=== PATIENT | male | born 1975 | race Caucasian/White ===

== ENCOUNTER 2019-11-20 01:19 | Day surgery (SDC) | payer OTHER, SELFPAY ==
[2019-11-19 09:28] VITALS: BMI 29.9
[2019-11-20 06:36] VITALS: BP 137/90; PULSE 88; RESP 18; TEMP 36.7; O2SAT 100; BMI 29.2
[2019-11-20] MEDS: LACTATED RINGERS 1,000 ML 150 ML IV CONT (06:54)
--- NOTE | 2019-11-20 07:08 | WPDANESEPPF ---
Anes - Initial Pre Proc Eval Procedure: Operation Date: 11/20/19 07:30 Proposed Procedures p Esophagogastroduodenoscopy - Tom Lock MD Date/Time: 11/20/19 07:08 Surgeon: Tom Lock MD Pre Op Diagnosis: dysphagia Patient Data Age: 44 Gender: M Height: 6 ft Weight: 98 kg Last Vital Signs Temp 36.7 C 11/20/19 06:36 Pulse 88 11/20/19 06:36 Resp 18 11/20/19 06:36 BP 137/90 11/20/19 06:36 Pulse Ox 100 11/20/19 06:36 Allergies Allergy/AdvReac Type Severity Reaction Status Date / Time No Known Allergies Allergy Unknown Verified 11/20/19 06:26 Home Medications Medication Instructions Recorded Confirmed Type sildenafil 100 mg tablet 100 mg PO DAILY PRN #18 tablet 08/21/19 11/19/19 Rx pantoprazole 40 mg PO DAILY 11/19/19 11/20/19 History Patient hx anesthesia problems: none Family hx anesthesia problems: none [facility] Social History Social History Smoking status: Current every day smoker Second hand tobacco smoke exposure: No Smoking end date: 08/07/14 Alcohol intake: current Anes - Eval Final PreProcedure Day of Procedure 11/20/19 07:08 Patient weight: overweight Heart: regular rate and rhythm Lungs: decreased breath sounds Airway: Mallampati scale class II Neurological: alert and oriented Last oral intake: >/= 8 hours ASA classification: III Emergent: no Anesthetic plan: proceed Anesthesia type and monitoring: general GIVS and standard monitoring Informed Consent: The patient's anesthetic plan and its attendant risks and benefits were discussed with the patient/family/POA. Questions were solicited and answers provided to the satisfaction of the patient/family/POA.
--- NOTE | 2019-11-20 07:15 | PM.HPGS ---
History of Present Illness History of Present Illness Consent: Risks, benefits, and alternatives have been discussed and questions answered. Patient agrees to proceed with procedure. Chief complaint: dysphagia Narrative: Jese Munson is a 44 year old maleWith known gastroesophageal reflux maintain on pantoprazole. He suddenly had a sensation of a food impaction on Monday afternoon. For several hours he could not drink water without it coming back up. He has had reflux esophagitis and an esophageal stricture was dilated in 2017. He has not been having difficulty swallowing lately until now. [facility] Social History Social History Smoking status: Current every day smoker Second hand tobacco smoke exposure: No Smoking end date: 08/07/14 Alcohol intake: current Meds Home Medications and Allergies Home Medications Medication Instructions Recorded Confirmed Type sildenafil 100 mg tablet 100 mg PO DAILY PRN #18 tablet 08/21/19 11/19/19 Rx pantoprazole 40 mg PO DAILY 11/19/19 11/20/19 History Allergies Allergy/AdvReac Type Severity Reaction Status Date / Time No Known Allergies Allergy Unknown Verified 11/20/19 06:26 Vital Signs Vital Signs - 24 hr 11/20/19 06:36 Temperature 36.7 C Pulse Rate 88 Respiratory Rate 18 Blood Pressure 137/90 Pulse Oximetry 100 Exam Const: General: alert Orientation/consciousness: patient oriented x3 Resp: Auscultation: clear to auscultation bilaterally Cardio: Rhythm: regular rhythm GI: GI Palp: Yes Soft to palpation and No Tenderness to palpation present (GI) Neuro: General: patient oriented x3 Assessment and Plan Assessment and plan (1) Dysphagia: Code(s): R13.10 - Dysphagia, unspecified Status: Acute Assessment and Plan: EGD with possible biopsy or dilatation or cautery.
[2019-11-20 07:36] VITALS: BP 117/81; PULSE 100; RESP 21; O2SAT 98
[2019-11-20 07:40] VITALS: BP 128/81; PULSE 91; RESP 17; O2SAT 97
[2019-11-20 07:51] VITALS: BP 110/92; PULSE 94; RESP 24; O2SAT 98
[2019-11-20 08:02] VITALS: BP 127/87; PULSE 83; RESP 16; O2SAT 98
== END 2019-11-20 08:10 | disposition home or self-care (01) ==
PROVIDERS: PCP Internal Medicine; Visit Provider Internal Medicine Gastroenterology
PROC: 0DJ08ZZ Inspection of Upper Intestinal Tract, Via Natural or Artificial Opening Endoscopic (ICD-10-PCS; CPT 43235; principal; 2019-11-20 07:30)
DX: K22.2 Esophageal obstruction (principal); K44.9 Diaphragmatic hernia without obstruction or gangrene; K21.0 Gastro-esophageal reflux disease with esophagitis; F17.210 Nicotine dependence, cigarettes, uncomplicated
CPT/HCPCS: 43249; 43239; 88305; C1726; J2704; J7120

== ENCOUNTER 2020-07-13 07:34 | Outpatient (CLI) | payer OTHER, SELFPAY ==
--- NOTE | ~2020-07-13 | US_ITS ---
EXAMINATION: US abdomen limited DATE: 07/13/2020 08:10 INDICATION: Abnormal liver function tests. TECHNIQUE: Multiple grayscale and Doppler ultrasound images of the abdomen were obtained. COMPARISON: CT abdomen and pelvis 10/12/2015 FINDINGS: The visualized portions of the head and body of the pancreas are normal. There is diffuse h epatic steatosis. No liver surface nodularity. There is normal flow in main portal vein. The gallblad leobardo is normal in size. No gallstones or gallbladder wall thickening. There is no sonographic Kessler s ign. The common duct is normal and measures 4 mm. Right kidney is normal. IMPRESSION: 1. Diffuse hepatic steatosis. Reviewed, dictated and finalized at location B. ICE ORDER TAKER
== END 2020-07-13 07:35 | disposition home or self-care (01) ==
PROVIDERS: PCP Internal Medicine; Visit Provider Clinical Nurse Specialist
DX: K76.0 Fatty (change of) liver, not elsewhere classified (principal)
CPT/HCPCS: 76705

== ENCOUNTER 2021-11-02 10:03 | Outpatient (CLI) | payer OTHER, SELFPAY ==
[2021-11-02 10:40] LABS: INR 1.1
[2021-11-02 10:47] LABS: Erythrocyte Sedimentation Rate 26 mm/hr (0-20)
[2021-11-02 11:15] LABS: Hepatitis B Surface Antigen Negative (Negative)
[2021-11-02 11:33] LABS: Hepatitis B Surface Anti Res Negative; Hepatitis C Virus Antibody Negative (Negative)
[2021-11-06 14:39] LABS: GGT 757 U/L (3-95)
[2021-11-08 23:33] LABS: ALT 77 U/L (9-46); Alpha-2-Macroglobulin 171 mg/dL (106-279); Apolipoprotein A1 188 mg/dL (94-176); Fibrosis Score 0.49; Fibrosis Stage F2; GGT 765 U/L (3-95); Haptoglobin 91 mg/dL (43-212); Necroinflammat Act Grade A2; Total Bilirubin 0.9 mg/dL (0.2-1.2)
== END 2021-11-02 10:04 | disposition home or self-care (01) ==
LOC: ANHLAB 10:05
PROVIDERS: PCP Internal Medicine; Visit Provider Nurse Practitioner Family
DX: R74.8 Abnormal levels of other serum enzymes (principal); E83.119 Hemochromatosis, unspecified; F10.20 Alcohol dependence, uncomplicated
CPT/HCPCS: 36415; 81596; 82977; 85610; 85652; 86706; 86803; 87340

== ENCOUNTER 2021-11-23 08:03 | Outpatient (CLI) | payer OTHER, SELFPAY ==
--- NOTE | ~2021-11-23 | US_ITS ---
EXAMINATION: US abdomen limited EXAM DATE: 11/23/2021 08:33 INDICATION: R74.8 - Abnormal levels of other serum enzymes. TECHNIQUE: Multiple grayscale and Doppler images of the abdomen right upper quadrant were obtained (b y a technologist who performed the scan) and subsequently reviewed. Comparison is made to prior exami nation from 07/13/2020. FINDINGS: The pancreatic head and body are normal in appearance. The pancreatic tail is not visualized. There is echogenic liver parenchyma, hepatic steatosis. There are no focal liver lesions identified. Th ere is no evidence of intrahepatic biliary duct dilation. Portal venous flow was seen in the hepatop edal, normal direction and has normal Doppler waveform. No right-sided hydronephrosis. Common bile duct measures 5 mm, which is normal. The gallbladder wall is normal in thickness, with ex pected amount of distention. No sonographic evidence of pericholecystic fluid. There is no cholelit hiases. Technologist performing exam reports patient did not demonstrate sonographic Kessler's sign. Please note that this sign is less reliable in patients who have received pain medication. IMPRESSION: Hepatic steatosis. Reviewed, dictated and finalized at location A. IMPRESSION: Hepatic steatosis.
== END 2021-11-23 08:04 | disposition home or self-care (01) ==
LOC: ANHIMG 08:09
PROVIDERS: PCP Internal Medicine; Visit Provider Nurse Practitioner Family
DX: E83.119 Hemochromatosis, unspecified (principal); F10.20 Alcohol dependence, uncomplicated; K76.0 Fatty (change of) liver, not elsewhere classified
CPT/HCPCS: 76705

== ENCOUNTER 2021-11-26 01:11 | Day surgery (SDC) | payer OTHER, SELFPAY ==
[2021-11-16 15:20] VITALS: BMI 30.5
[2021-11-26 09:49] VITALS: BP 132/85; PULSE 89; RESP 20; TEMP 37.1; O2SAT 99; BMI 29.9
[2021-11-26] MEDS: LACTATED RINGERS 1,000 ML 150 ML IV CONT (09:52)
--- NOTE | 2021-11-26 09:59 | WPDGICN ---
Assessment and Plan Assessment and plan (1) Dysphagia: Code(s): R13.10 - Dysphagia, unspecified Status: Acute Assessment and Plan: EGD with possible biopsy or dilatation or cautery. (2) Colon cancer screening: Code(s): Z12.11 - Encounter for screening for malignant neoplasm of colon Status: Acute Assessment and Plan: Colonoscopy with possible biopsy or polypectomy or cautery or injection of substances. GI Consult Note Consult date/time: 11/26/21 09:59 HPI: Jese Munson is a 46 year old male Referred for endoscopy because of dysphagia. He is also due for colon cancer screening. He is having dysphagia for solid food. In fact 5 years ago he was hospitalized with acute impaction. That was removed and he was also found have severe erosive esophagitis. A follow-up exam few months later revealed virtually complete healing of the ulcerations and biopsies were negative for Kimble's mucosa at that time. His last esophageal dilatation was just over 2 years ago. Review of Systems Review of Systems: All systems reviewed & are unremarkable except as noted in HPI and below PMFSH Past Medical History Medical History Anxiety Fatty liver GERD (gastroesophageal reflux disease) Hemochromatosis Lump in armpit Skull fracture Surgical History Surgical History H/O foot surgery @ age 13 Family History Family History Father Swallowing disorder Malignant neoplasm of prostate Social History Social History Smoking status: Former smoker Tobacco type: cigarettes and e-cigarettes/vaping Second hand tobacco smoke exposure: No Smoking end date: 08/07/14 Alcohol intake: current Alcohol use details: 1 pint vodka per day Living arrangements: with family Meds Home Medications and Allergies Home Medications Medication Instructions Recorded Confirmed Type losartan 50 mg tablet 50 mg PO DAILY #30 tablet 03/22/21 11/26/21 Rx pantoprazole 40 mg tablet,delayed See Rx Instructions .ROUTE 11/01/21 11/26/21 Rx release .COMPLEX #90 tablet Allergies Allergy/AdvReac Type Severity Reaction Status Date / Time No Known Allergies Allergy Unknown Verified 11/26/21 09:47 Vital Signs Vital Signs - 24 hr 11/26/21 09:49 Temperature 37.1 C Pulse Rate 89 Respiratory Rate 20 Blood Pressure 132/85 Pulse Oximetry 99 Exam Const: General: alert Orientation/consciousness: patient oriented x3 Resp: Auscultation: clear to auscultation bilaterally Cardio: Rhythm: regular rhythm GI: GI Palp: Yes Soft to palpation and No Tenderness to palpation present (GI) Neuro: General: patient oriented x3
--- NOTE | 2021-11-26 10:24 | P.PNAN_ITS ---
Anes - Initial Pre Proc Eval Procedure: Operation Date: 11/26/21 10:45 Proposed Procedures p Esophagogastroduodenoscopy & Screening Colonoscopy - Tom Lock MD Date/Time: 11/26/21 10:24 Surgeon: Tom Lock MD Pre Op Diagnosis: dysphagia, neoplasm screening Patient Data Age: 46 Gender: M Height: 1.83 m Weight: 100.3 kg Last Vital Signs Temp 98.7 F 11/26/21 09:49 Pulse 89 11/26/21 09:49 Resp 20 11/26/21 09:49 BP 132/85 11/26/21 09:49 Pulse Ox 99 11/26/21 09:49 Allergies Allergy/AdvReac Type Severity Reaction Status Date / Time No Known Allergies Allergy Unknown Verified 11/26/21 09:47 Home Medications Medication Instructions Recorded Confirmed Type losartan 50 mg tablet 50 mg PO DAILY #30 tablet 03/22/21 11/26/21 Rx pantoprazole 40 mg tablet,delayed See Rx Instructions .ROUTE 11/01/21 11/26/21 Rx release .COMPLEX #90 tablet Patient hx anesthesia problems: none Family hx anesthesia problems: none Results Review: All pre-operative results and documents have been reviewed as part of the pre-operative evaluation. [facility] Past Medical History Medical History Anxiety Fatty liver GERD (gastroesophageal reflux disease) Hemochromatosis Lump in armpit Skull fracture Surgical History Surgical History H/O foot surgery @ age 13 Family History Family History Father Swallowing disorder Malignant neoplasm of prostate Social History Social History Smoking status: Former smoker Tobacco type: cigarettes and e-cigarettes/vaping Second hand tobacco smoke exposure: No Smoking end date: 08/07/14 Alcohol intake: current Alcohol use details: 1 pint vodka per day Living arrangements: with family Anes - Eval Final PreProcedure Day of Procedure 11/26/21 10:24 Patient weight: obese Heart: regular rate and rhythm Lungs: clear to auscultation Airway: Mallampati scale class III Neurological: alert and oriented Last oral intake: >/= 8 hours ASA classification: III Emergent: no Anesthetic plan: proceed Anesthesia type and monitoring: general GIVS and standard monitoring Results Review: All pre-operative results and documents have been reviewed as part of the pre-operative evaluation. Informed Consent: The patient's anesthetic plan and its attendant risks and benefits were discussed with the patient/family/POA. Questions were solicited and answers provided to the satisfaction of the patient/family/POA.
--- NOTE | 2021-11-26 10:45 | SUR.OPER ---
EGD ENDED 1038, COLONOSCOPY STARTED 1044
[2021-11-26 11:03] VITALS: BP 119/83; PULSE 92; RESP 17; O2SAT 97
[2021-11-26 11:13] VITALS: BP 119/82; PULSE 85; RESP 17; O2SAT 98
[2021-11-26 11:23] VITALS: BP 131/91; PULSE 82; RESP 25; O2SAT 98
== END 2021-11-26 11:27 | disposition home or self-care (01) ==
PROVIDERS: PCP Internal Medicine; Visit Provider Internal Medicine Gastroenterology
PROC: 0DJ08ZZ Inspection of Upper Intestinal Tract, Via Natural or Artificial Opening Endoscopic (ICD-10-PCS; CPT 43235; principal; 2021-11-26 10:45)
DX: Z12.11 Encounter for screening for malignant neoplasm of colon (principal); D12.2 Benign neoplasm of ascending colon; K62.1 Rectal polyp; K21.00 Gastro-esophageal reflux disease with esophagitis, without bleeding; K22.2 Esophageal obstruction; J32.0 Chronic maxillary sinusitis; K63.5 Polyp of colon; R13.19 Other dysphagia; F41.9 Anxiety disorder, unspecified; K76.0 Fatty (change of) liver, not elsewhere classified; K21.9 Gastro-esophageal reflux disease without esophagitis; E83.119 Hemochromatosis, unspecified; Z87.891 Personal history of nicotine dependence; E66.9 Obesity, unspecified; Z68.30 Body mass index [BMI] 30.0-30.9, adult
CPT/HCPCS: 45380; 45385; 43239; 43249; 88305; C1726; J2704; J7120

== ENCOUNTER 2022-05-23 08:57 | Outpatient (CLI) | payer OTHER, SELFPAY ==
[2022-05-23 09:48] LABS: Hemoglobin 13.2 g/dL (14.0-18.0); Mean Corpuscular HGB Conc 33.8 g/dl (32-36); Mean Corpuscular Hemoglobin 36.3 pg (26-34); Mean Corpuscular Volume 107.1 fl (80-100); Mean Platelet Volume 11.5 fl (7.4-10.4); Platelet Count Result 311 k/mm3 (150-375); Red Blood Count 3.64 M/mm3 (4.6-6.20); Red Cell Distribution Width 11.5 % (11.5-14.5)
[2022-05-23 10:00] LABS: Alanine Aminotransferase 198 U/L (6-50); Alkaline Phosphatase 172 U/L (38-126); Anion Gap 15 mmol/L (8-16); Aspartate Amino Transferase 213 U/L (17-59); Bilirubin,Total 1.4 mg/dL (0.2-1.3); Blood Urea Nitrogen 20 mg/dL (9-20); Calcium 10.2 mg/dL (8.4-10.2); Carbon Dioxide 22 mmol/L (22-30); Chloride 102 mmol/L (98-107); Estimated Glomerular Filt Rate 54; Glucose 109 mg/dL (65-110); Potassium 5.1 mmol/L (3.4-5.0); Sodium 139 mmol/L (137-145)
[2022-05-23 10:03] LABS: Magnesium 1.6 mg/dL (1.6-2.3); Phosphorus 4.6 mg/dL (2.5-4.5)
[2022-05-25 11:02] LABS: Actin Antibody (IgG) <20 U (<20)
[2022-05-25 11:36] LABS: LKM 1 Antibody <=20.0 U (<=20.0)
[2022-05-25 21:51] LABS: Ceruloplasmin 34 mg/dL (18-36)
[2022-05-27 08:42] LABS: Mitochondrial (M2) Ab (IgG) <=20.0 U (<=20.0)
[2022-05-27 15:30] LABS: Alpha Fetoprotein Tumor Marker 2.7 ng/mL (<6.1)
== END 2022-05-23 08:58 | disposition home or self-care (01) ==
PROVIDERS: PCP Internal Medicine; Referring Provider Family Medicine; Visit Provider Nurse Practitioner Family
DX: K76.0 Fatty (change of) liver, not elsewhere classified (principal); R74.8 Abnormal levels of other serum enzymes; E83.119 Hemochromatosis, unspecified; E83.42 Hypomagnesemia; E83.39 Other disorders of phosphorus metabolism
CPT/HCPCS: 36415; 80053; 82104; 82105; 82390; 83516; 83520; 83735; 84100; 85027; 86376

== ENCOUNTER 2022-06-02 08:31 | Outpatient (CLI) | payer OTHER, SELFPAY ==
[2022-06-02 09:01] LABS: Alanine Aminotransferase 59 U/L (6-50); Albumin Level 4.6 g/dL (3.5-5.1); Alkaline Phosphatase 121 U/L (38-126); Anion Gap 15 mmol/L (8-16); Aspartate Amino Transferase 55 U/L (17-59); Bilirubin,Total 0.9 mg/dL (0.2-1.3); Blood Urea Nitrogen 21 mg/dL (9-20); Calcium 9.3 mg/dL (8.4-10.2); Carbon Dioxide 26 mmol/L (22-30); Chloride 97 mmol/L (98-107); Estimated Glomerular Filt Rate > 60; Glucose 103 mg/dL (65-110); Sodium 138 mmol/L (137-145)
== END 2022-06-02 08:32 | disposition home or self-care (01) ==
LOC: ANHLAB 08:33
PROVIDERS: PCP Family Medicine; Visit Provider Family Medicine
DX: R74.8 Abnormal levels of other serum enzymes (principal); R79.89 Other specified abnormal findings of blood chemistry
CPT/HCPCS: 36415; 80053

== ENCOUNTER 2022-06-13 07:58 | Outpatient (CLI) | payer OTHER, SELFPAY ==
--- NOTE | ~2022-06-13 | US_ITS ---
EXAMINATION: US abdomen limited DATE: 06/13/2022 08:23 INDICATION: Unspecified cirrhosis of the liver TECHNIQUE: Multiple grayscale and Doppler ultrasound images of the abdomen were obtained. COMPARISON: 11/23/2021 FINDINGS: Bowel gas obscures visualization of the pancreas. The visualized portions of the pancreas a re unremarkable. The liver demonstrates increased echogenicity, heterogenous echotexture, and decreas ed through transmission. No surface nodularity. Normal hepatopetal flow in the main portal vein. The gallbladder is normal with no abnormal wall thickening, pericholecystic fluid or stones. The normal c ommon bile duct measures 4 mm. There was no sonographic Kessler sign. IMPRESSION: 1. Diffuse hepatic steatosis. Reviewed, dictated and finalized at location B. F PORT DIRECTOR
== END 2022-06-13 07:59 | disposition home or self-care (01) ==
PROVIDERS: PCP Family Medicine; Visit Provider Nurse Practitioner
DX: K76.0 Fatty (change of) liver, not elsewhere classified (principal)
CPT/HCPCS: 76705

== ENCOUNTER 2022-09-20 14:53 | Outpatient (CLI) | payer OTHER, SELFPAY ==
[2022-09-20 21:06] LABS: Folic Acid 11.1 ng/mL (2.76->20)
== END 2022-09-20 14:54 | disposition home or self-care (01) ==
LOC: ANHLAB 14:56
PROVIDERS: PCP Internal Medicine; Visit Provider Internal Medicine
DX: K76.0 Fatty (change of) liver, not elsewhere classified (principal); F10.20 Alcohol dependence, uncomplicated; E83.119 Hemochromatosis, unspecified; R74.8 Abnormal levels of other serum enzymes; I10 Essential (primary) hypertension
CPT/HCPCS: 36415; 82607; 82746; 84443

== ENCOUNTER 2022-11-15 08:29 | Outpatient (CLI) | payer OTHER, SELFPAY ==
[2022-11-15 09:20] LABS: Alanine Aminotransferase 94 U/L (6-50); Alkaline Phosphatase 109 U/L (38-126); Aspartate Amino Transferase 236 U/L (17-59); Bilirubin,Total 1.5 mg/dL (0.2-1.3)
== END 2022-11-15 08:30 | disposition home or self-care (01) ==
PROVIDERS: PCP Internal Medicine; Visit Provider Nurse Practitioner Family
DX: R74.8 Abnormal levels of other serum enzymes (principal)
CPT/HCPCS: 36415; 80076

== ENCOUNTER 2022-11-24 07:33 | Outpatient (CLI) | payer OTHER, SELFPAY ==
--- NOTE | ~2022-11-24 | US_ITS ---
Limited Abdominal Sonogram: Real-time sonographic imaging of the right upper quadrant was performed. Clinical History: Cirrhosis Findings: The liver appears echogenic, with no evidence of mass lesion or bile duct dilatation. Main portal vein demonstrates normal direction of flow. The gallbladder is well distended, and appears no rmal with no evidence of gallstone or wall thickening. The common bile duct measures 3 mm. The visua lized pancreas, aorta, and IVC are unremarkable. Impression: Diffuse fatty infiltration of liver. Reviewed, dictated and finalized at location M. Impression: Diffuse fatty infiltration of liver.
== END 2022-11-24 07:34 | disposition home or self-care (01) ==
PROVIDERS: PCP Internal Medicine; Visit Provider Nurse Practitioner Family
DX: K74.60 Unspecified cirrhosis of liver (principal); K76.0 Fatty (change of) liver, not elsewhere classified
CPT/HCPCS: 76705

== ENCOUNTER 2023-10-12 14:32 | Emergency (ER) | payer OTHER, SELFPAY ==
--- NOTE | ~2023-10-12 | XR_ITS ---
EXAMINATION: XR chest 2V DATE: 10/12/2023 15:05 INDICATION: Cough. Fever. TECHNIQUE: Frontal and lateral views of the chest were obtained. COMPARISON: Chest 2 views 06/26/2012, CT abdomen and pelvis 10/12/15 FINDINGS: There are airspace opacities in left lower lobe, consistent with pneumonia. No pleural effu zak or pneumothorax. The heart size is normal. IMPRESSION: 1. Left lower lobe pneumonia. Reviewed, dictated and finalized at location E. STRIAL RETROFIT DESIGNER
--- NOTE | 2023-10-12 14:36 | ED.URI ---
HPI - URI/Sore Throat General Chief Complaint: Upper Respiratory Infection Stated Complaint: Fever/Cough Time Seen by Provider: 10/12/23 14:36 Source: patient Mode of arrival: ambulatory Limitations: no limitations History of Present Illness HPI Narrative: Patient is a 39-year-old male presents with 2 days of fever and cough. Reports fever of 102.3 this morning. Has been taking DayQuil NyQuil. Denies any congestion, sore throat, nausea, vomiting, diarrhea. Did take at home COVID test id was negative. Reports son was sick for week and [facility]. Reports sometimes diagnosed with pneumonia and was told it was contagious. Denies cough being productive. Related Data Home Medications Medication Instructions Recorded Confirmed zonisamide 100 mg capsule 100 mg PO DAILY 08/04/23 10/12/23 Allergies Allergy/AdvReac Type Severity Reaction Status Date / Time No Known Allergies Allergy Unknown Verified 10/12/23 14:39 Review of Systems Review of Systems: All systems reviewed & are unremarkable except as noted in HPI and below Constitutional: Constitutional: Denies body ache(s), Denies chills, Denies fatigue, Reports fever(s), Denies headache(s), Denies malaise and Denies weakness Eyes: Eyes: Denies blurry vision, Denies itchy eyes and Denies loss of vision ENT: Denies otalgia, Denies headache(s), Denies nasal congestion, Denies sinus pain and Denies sore throat Cardiovascular: Cardiovascular: Denies chest pain, Denies irregular heart rhythm and Denies dyspnea Respiratory: Respiratory: Reports cough and Denies dyspnea Gastrointestinal: Gastrointestinal: Denies abdominal pain, Denies diarrhea, Denies nausea and Denies vomiting Musculoskeletal: Musculoskeletal: Denies back pain, Denies myalgias and Denies arthralgias Integumentary/Breasts: Skin/Breast: Denies pruritus and Denies rash Neurologic: Denies headache(s), Denies loss of vision and Denies weakness Psychiatric: Psychiatric: Reports no additional psychiatric complaints Endocrine: Endocrine: Denies fatigue Allergic/Immunologic: Allergic/Immunologic: Denies itchy eyes PMFSH Past Medical History Medical History Anemia Anxiety Cirrhosis Close exposure to COVID-19 virus Fatty liver GERD (gastroesophageal reflux disease) Hematospermia Hemochromatosis Lump in armpit Skull fracture Thrombocytopenia Tubular adenoma of colon Surgical History Surgical History H/O foot surgery @ age 13 Family History Family History Father Swallowing disorder Malignant neoplasm of prostate Social History Social History Social History: Caffeine-tea Smoking status: Former smoker Tobacco type: cigarettes and e-cigarettes/vaping Second hand tobacco smoke exposure: No Smoking end date: 08/07/14 Alcohol intake: current Alcohol use details: 3 drinks daily Do You Feel Safe in your Home?: Yes Lack of Transportation: No Lack of Food: Never True Current Housing: I Have Housing Concerned About Future Housing: No Difficulty Paying Gas/Electric Bills: No Difficulty Paying for Meds: No Currently Unemployed: No Education: High School Diploma/GED Difficulty w/ Childcare or Family Care: No Living arrangements: with family Comments At time of signature, agree with nursing past medical, surgical, social and family history. There is no relevant family history pertinent to the presenting complaint. Exam Const: General: cooperative, healthy appearing, comfortable, no acute distress and well nourished Nutritional Appearance: well nourished Orientation/consciousness: patient oriented x3 Limitations: no limitations HENMT: Head: normal to inspection, normocephalic and atraumatic Ears:
[2023-10-12 14:49] VITALS: BP 123/93; PULSE 88; RESP 16; TEMP 36.7; O2SAT 99
== END 2023-10-12 15:32 | disposition home or self-care (01) ==
PROVIDERS: Emergency Provider Nurse Practitioner Family; PCP Internal Medicine
DX: J18.1 Lobar pneumonia, unspecified organism (principal); Z20.822 Contact with and (suspected) exposure to COVID-19; Z87.891 Personal history of nicotine dependence; K74.60 Unspecified cirrhosis of liver; K76.0 Fatty (change of) liver, not elsewhere classified; K21.9 Gastro-esophageal reflux disease without esophagitis
CPT/HCPCS: 71046; 87426; 87804; 99213; G0463

== ENCOUNTER 2023-11-01 07:47 | Outpatient (CLI) | payer OTHER, SELFPAY ==
--- NOTE | ~2023-11-01 | US_ITS ---
US abdomen limited INDICATION: Cirrhosis PROCEDURE: Realtime right upper abdominal ultrasound. COMPARISON: No prior studies for comparison. FINDINGS: The pancreas is normal without focal mass or pancreatic ductal dilation. Liver echotexture is increased, consistent with fatty infiltration. There is normal directional flow in the portal ve in. There are echogenic intraluminal foci in the gallbladder lumen without definite posterior shadowing, most likely sludge. Common bile duct measures 2 mm. No sonographic Kessler's sign. IMPRESSION: 1: Fatty infiltration of the liver. 2: Gallbladder sludge. Reviewed, dictated and finalized at location B.
== END 2023-11-01 07:48 | disposition home or self-care (01) ==
PROVIDERS: PCP Internal Medicine; Visit Provider Nurse Practitioner
DX: K74.60 Unspecified cirrhosis of liver (principal); K76.0 Fatty (change of) liver, not elsewhere classified; D69.6 Thrombocytopenia, unspecified
CPT/HCPCS: 76705

== ENCOUNTER 2023-12-21 10:00 | Outpatient (CLI) | payer OTHER, SELFPAY ==
[2023-12-21 10:49] LABS: Hematocrit 40.9 % (42.0-52.0); Hemoglobin 14.2 g/dL (14.0-18.0); Immature Platelet Fraction Pct 11.9 % (0.9-11.2); Mean Corpuscular HGB Conc 34.7 g/dl (32-36); Mean Corpuscular Hemoglobin 32.6 pg (26-34); Mean Platelet Volume 10.7 fl (7.4-10.4); Platelet Count Result 128 k/mm3 (150-375); Red Blood Count 4.35 M/mm3 (4.6-6.20); Red Cell Distribution Width 14.3 % (11.5-14.5); White Blood Count 6.4 K/mm3 (4.5-10.0)
[2023-12-21 12:39] LABS: Alanine Aminotransferase 77 U/L (6-50); Albumin Level 5.2 g/dL (3.5-5.1); Alkaline Phosphatase 132 U/L (38-126); Anion Gap 16 mmol/L (4-12); Aspartate Amino Transferase 217 U/L (17-59); Blood Urea Nitrogen 5 mg/dL (9-20); Calcium 9.4 mg/dL (8.4-10.2); Carbon Dioxide 22 mmol/L (22-30); Chloride 101 mmol/L (98-107); Estimated Glomerular Filt Rate > 60; Glucose 104 mg/dL (65-110); Potassium 3.1 mmol/L (3.4-5.0); Sodium 139 mmol/L (137-145)
[2023-12-21 13:28] LABS: Iron 123 ug/dL (49-181)
[2023-12-21 13:38] LABS: Percent Iron Saturation 32 % (20-50)
== END 2023-12-21 10:01 | disposition home or self-care (01) ==
PROVIDERS: PCP Internal Medicine; Visit Provider Internal Medicine Hematology & Oncology
DX: D50.9 Iron deficiency anemia, unspecified (principal)
CPT/HCPCS: 36415; 80053; 82728; 83540; 83550; 85027; 85055

== ENCOUNTER 2024-04-23 08:57 | Outpatient (CLI) | payer OTHER, SELFPAY ==
--- NOTE | ~2024-04-23 | US_ITS ---
COMPLETE ABDOMINAL ULTRASOUND Ordering provider: Donny Barillas MD History: . K74.60 - Unspecified cirrhosis of liver . Comparison: None. FINDINGS: LIVER: Slight hepatomegaly. Increased echogenicity. Nodular surface. No focal hepatic lesions or alie hepatic fluid collections are identified. Normal slightly slow portal vein flow is seen. GALLBLADDER: Unremarkable. No evidence for stones, sludge, gallbladder wall thickening or pericholecy stic fluid collections. A negative sonographic Kessler's sign was noted. BILIARY DUCTS: No evidence for intra or extrahepatic biliary dilation. Common bile duct measures 3.5 mm in diameter which is within normal limits. PANCREAS: Heterogeneous echogenicity. IMPRESSION: Slight hepatomegaly with fat infiltration. Cirrhotic changes are possible. Heterogenous pancreas whic h may indicate pancreatitis. Clinical correlation and further evaluation advised. Reviewed, dictated and finalized at location A. IMPRESSION: Slight hepatomegaly with fat infiltration. Cirrhotic changes are possible. Hete rogenous pancreas which may indicate pancreatitis. Clinical correlation and fur ther evaluation advised.
== END 2024-04-23 08:58 | disposition home or self-care (01) ==
PROVIDERS: PCP Internal Medicine; Visit Provider Internal Medicine Gastroenterology
DX: K76.0 Fatty (change of) liver, not elsewhere classified (principal); K74.60 Unspecified cirrhosis of liver; R74.8 Abnormal levels of other serum enzymes
CPT/HCPCS: 76705

== ENCOUNTER 2024-04-25 13:30 | Outpatient (CLI) | payer OTHER, SELFPAY ==
[2024-04-25 13:56] LABS: Basophils Absolute Auto 0.2 K/mm3 (0.0-0.1); Basophils Percent Auto 3.6 % (0.2-1.2); Eosinophils Absolute Auto 0.3 K/mm3 (0-0.3); Eosinophils Percent Auto 6.1 % (0-4.4); Hematocrit 43.2 % (42.0-52.0); Hemoglobin 14.9 g/dL (14.0-18.0); Immature Granulocyte Absolute 0.01 K/mm3 (0.00-0.031); Immature Granulocyte Percent A 0.2 % (0-0.5); Immature Platelet Fraction Pct 10.4 % (0.9-11.2); Lymphocytes Absolute Auto 2.45 K/mm3 (0.9-3.2); Lymphocytes Percent Auto 43.8 % (18.3-44.2); Mean Corpuscular HGB Conc 34.5 g/dl (32-36); Mean Corpuscular Hemoglobin 33.6 pg (26-34); Mean Corpuscular Volume 97.5 fl (80-100); Mean Platelet Volume 11.2 fl (7.4-10.4); Monocytes Absolute Auto 0.4 K/mm3 (0.1-0.6); Monocytes Percent Auto 7.5 % (2.6-8.5); Neutrophils Absolute Auto 2.2 K/mm3 (1.3-6.7); Neutrophils Percent Auto 38.8 % (45.5-73.1); Platelet Count Result 78 k/mm3 (150-375); Red Blood Count 4.43 M/mm3 (4.6-6.20); Red Cell Distribution Width 12.8 % (11.5-14.5); White Blood Count 5.6 K/mm3 (4.5-10.0)
[2024-04-25 17:45] LABS: Alanine Aminotransferase 76 U/L (6-50); Alkaline Phosphatase 118 U/L (38-126); Anion Gap 18 mmol/L (4-12); Aspartate Amino Transferase 260 U/L (17-59); Bilirubin,Total 1.6 mg/dL (0.2-1.3); Blood Urea Nitrogen 5 mg/dL (9-20); Carbon Dioxide 22 mmol/L (22-30); Chloride 106 mmol/L (98-107); Estimated Glomerular Filt Rate > 60; Glucose 110 mg/dL (65-110); Iron 110 ug/dL (49-181); Potassium 3.8 mmol/L (3.4-5.0); Sodium 146 mmol/L (137-145)
[2024-04-25 18:00] LABS: Percent Iron Saturation 28 % (20-50)
== END 2024-04-25 13:31 | disposition home or self-care (01) ==
PROVIDERS: PCP Internal Medicine; Visit Provider Internal Medicine Hematology & Oncology
DX: D50.9 Iron deficiency anemia, unspecified (principal)
CPT/HCPCS: 36415; 80053; 82728; 83540; 83550; 85025; 85055

== ENCOUNTER 2024-08-22 08:10 | Outpatient (CLI) | payer OTHER, SELFPAY ==
[2024-08-22 08:24] LABS: Basophils Absolute Auto 0.1 K/mm3 (0.0-0.1); Basophils Percent Auto 1.6 % (0.2-1.2); Eosinophils Absolute Auto 0.6 K/mm3 (0-0.3); Eosinophils Percent Auto 7.5 % (0-4.4); Hematocrit 37.5 % (42.0-52.0); Hemoglobin 12.5 g/dL (14.0-18.0); Immature Granulocyte Absolute 0.01 K/mm3 (0.00-0.031); Immature Granulocyte Percent A 0.1 % (0-0.5); Lymphocytes Absolute Auto 2.54 K/mm3 (0.9-3.2); Lymphocytes Percent Auto 31.1 % (18.3-44.2); Mean Corpuscular HGB Conc 33.3 g/dl (32-36); Mean Corpuscular Hemoglobin 32.1 pg (26-34); Mean Corpuscular Volume 96.2 fl (80-100); Mean Platelet Volume 11.6 fl (7.4-10.4); Monocytes Absolute Auto 0.9 K/mm3 (0.1-0.6); Monocytes Percent Auto 11.3 % (2.6-8.5); Neutrophils Percent Auto 48.4 % (45.5-73.1); Platelet Count Result 177 k/mm3 (150-375); Red Cell Distribution Width 13.2 % (11.5-14.5); White Blood Count 8.2 K/mm3 (4.5-10.0)
[2024-08-22 10:34] LABS: Anion Gap 9 mmol/L (4-12); Blood Urea Nitrogen 8 mg/dL (9-20); Calcium 9.7 mg/dL (8.4-10.2); Carbon Dioxide 23 mmol/L (22-30); Chloride 106 mmol/L (98-107); Estimated Glomerular Filt Rate > 60; Glucose 92 mg/dL (65-110); Potassium 4.6 mmol/L (3.4-5.0); Sodium 138 mmol/L (137-145)
--- OUTSIDE RECORDS SUMMARY | 2024-08-29 01:28 | XMS_ITS | Clinical Summary ---
Author Organization [facility] Address [address] [place] [address]. 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 Gender Identity Not on file Sexual Orientation Not on file Plan of Treatment Health Maintenance Due Date Last Done Comments Colorectal Cancer Screening Colonoscopy (10 Years) 1974 Annual Physical 1977 Hepatitis C 1992 DTaP, Tdap and Td Vaccines ( 1 - Tdap) 1993 Hepatitis B Vaccines (1 of 3 - 19+ 3-dose series) 1993 COVID-19 Vaccine (2023-2 5 season) 2024 Influenza Adult (#1) 2024 Meningococcal Vaccine Aged Out No micky doris eligible based on patient's age to complete this topic Pneumococcal Vaccine: Pediat rics (0 to 5 Years) and At-Risk Patients (6 to 64 Years) Aged Out No longer eligible b ased on patient's age to complete this topic RSV Immunizations Under 20 Months Aged Out No longer eligible based on patient's age to complete this topic Care Teams Director Pharmacovigilance Relationship Specialty Start Date End Date None, Provider, PCP - General 05/09/19
--- OUTSIDE RECORDS SUMMARY | 2024-08-29 01:28 | XMS_ITS | Referral Summary ---
Author Organization [facility] Address [facility] [place] [address] Care Team Providers Care Supervisor Sanding Name Role Phone Chay Fuller DO Primary Care Provider [phone] Eric Shin MD Unavailable [phone] Allergies Active Allergy Reactions Criticality Noted Date Comments Other Unknown 04/05/2024 Medications losartan (COZAAR) 100 mg tablet Take 100 mg by mouth daily [address] (PROTONIX) 40 mg EC tablet Take 40 mg by mouth every morning 2 Active folic acid (FOLVITE) 1 mg tabletIndicatio ns:Folate Deficiency Take 1 tablet (1 mg total) by mouth daily 30 tablet 2 Active potassium, sodium phosphates (PHOS-NAK) 280-160-250 mg powder in packet Take 1 packet by mouth 3 (three) times a day before meals 20 packet 2 Active amLODIPine (NORVASC) 10 mg tablet Take 1 tablet (10 mg total) by mouth daily 60 tablet 2 Active cyanocobalamin (Vitamin B-12) 1,000 mcg tabletIndicatio ns:Prevention of Vitamin B12 Deficiency Take 1 tablet (1,000 mcg total) by mouth daily 30 tablet 2 Active magnesium oxide (MAG-OX) 400 mg (241.3 mg elemental magnesium) tabletIndicatio ns:hypomagnesem ia Take 1 tablet (400 mg total) by mouth daily 30 tablet 2 Active potassium chloride ER (KLOR-CON) 20 mEq CR tablet Take 1 tablet (20 mEq total) by mouth daily 14 tablet 2 Active aspirin 325 mg tablet Take 1 tablet (325 mg total) by mouth 2 (two) times a day 60 tablet 2 Active Additional Information Patient not taking.Reported on 03/28/2023 HYDROcodone-sherwin taminophen (NORCO) 5-325 mg per tabletIndicatio ns:Pain Take 1 tablet by mouth every 8 (eight) hours as needed for pain 20 tablet 2 Active Additional Information Patient not taking.Reported on 03/28/2023 atenoloL (TENORMIN) 50 mg tablet Take 1 tablet (50 mg total) by mouth daily Active losartan (COZAAR) 50 mg tablet Take 1 tablet (50 mg total) by mouth daily [address] (PROTONIX) 40 mg EC tablet Take 1 tablet (40 mg total) by mouth every morning 1 Active cetirizine (ZyrTEC) 10 mg tablet Take by mouth Active zonisamide (ZONEGRAN) 100 mg capsuleIndicati ons:Partial Epilepsy Treatment Adjunct Take 1 capsule (100 mg total) by mouth daily 90 capsule 3 4 04/05/20 25 Active Active Problems Problem Noted Date Diagnosed Date Seizure 05/11/2022 Alcohol withdrawal syndrome with complication Hypomagnesemia Hypokalemia Closed fracture of left ankle Social History Tobacco Use Types Packs/Day Years Used Date Smoking Tobacco: Every Day Cigarettes Tobacco Cessation:Ready to Q uit: Not Asked; Counseling Given: Not Answered Social Connection and Isolat ion Panel [NHANES] Answer Date Recorded In a typical week, how many times do you talk on the phone with family, friends, or neighbors? More than three times a week 05/12/2022 How often do you get togethe r with friends or relatives? More than three times a week 05/12/2022 How often do you attend chur or anabaptism services? Never 05/12/2022 Do you belong to any clubs o r organizations such as worship groups, unions, fraternal or athletic groups, or school groups? No 05/12/2022 How often do you attend meet ings of the clubs or organizations you belong to? Never 05/12/2022 Are you , , di vorced, , never , or living with a partner? Living with partner 05/12/2022 Overall Financial Resource Strain (CARDIA) Answe r Date Recorded How hard is it for you to pa y for the very basics like food, housing, medical care, and heating? Not hard at all 05/12/2022 PRAPARE - Transportation Answer Date Re corded In the past 12 months, has l ack of transportation kept you from medical appointments or from getting medications? No 01/2022 In the past 12 months, has l ack of transportation kept you from meetings, work, or from getting things needed for daily living? No 05/12/2022 Sex and Gender Information Value Date Recorded Sex Assigned at Not on file Legal Sex Male 3:16 AM BINDER STRIPPER MACHINE Gender Identity Not on file Sexual Orientation Not on file Last Filed Vital Signs Vital Sign Reading Time Taken Comments Blood Pressure 138/78 04/05/2024 9:02 AM CDT Pulse 102 04/05/2024 9:02 AM CDT Temperature 36.7 ??C (98 ??F) 10/07/2022 8:33 AM BINDER STRIPPER MACHINE Respiratory Rate 20 10/07/2022 8:33 AM BINDER STRIPPER MACHINE Oxygen Saturation 97% 10/07/2022 8:33 AM BINDER STRIPPER MACHINE Inhaled Oxygen Concentration - - Weight 99.3 kg (219 lb) 04/05/2024 9:02 AM CDT Height 181.6 cm (5' 11.5 ) 04/05/2024 9:02 AM CD T Body Mass Index 30.12 04/05/2024 9:02 AM CDT Plan of Treatment Not on file Medical Devices Implanted Type Area Culvert Installer Device Identifier Shelf Expiration Date Model / Serial / Lot Synthes Lcp 12mm [id number] .7mm 7 Hole Collar 08/09 Tubular Plate Bone 241.371 - [id number] Implanted:Qty: 1 on 05/11/2022 by Eric Shin MD at [facility] Synthes I 241.371 / / Synthes 3.5mm 6mm 24mm 2.5mm Self Tap Small Hexagonal Socket Low Profile 204.824 - [id number] Implanted:Qty: 1 on 05/11/2022 by Eric Shin MD at [facility] Synthes I 204.824 / / Synthes 3.5mm 6mm 18mm 2.5mm Self Tap Small Hexagonal Socket Low Profile 204.818 - [id number] Implanted:Qty: 2 on 05/11/2022 by Eric Shin MD at [facility] Synthes I 204.818 / / Synthes 4mm 6mm 18mm Small Hexagonal Socket Cancellous Full Thread Screw 206.018 - [id number] Implanted:Qty: 2 on 05/11/2022 by Eric Shin MD at [facility] Synthes I 206.018 / / Synthes 3.5mm 6mm 16mm 2.5mm Self Tap Small Hexagonal Socket Low Profile 204.816 - [id number] Implanted:Qty: 1 on 05/11/2022 by Eric Shin MD at [facility] Synthes I 204.816 / / Synthes 4mm 5mm 1.35mm 44mm Cannulated Self Tap Self Drill Small 207.644 - [id number] Implanted:Qty: 1 on 05/11/2022 by Eric Shin MD at [facility] Synthes I 207.644 / / Synthes 4mm 5mm 1.35mm 46mm Cannulated Self Tap Self Drill Small 207.646 - [id number] Implanted:Qty: 1 on 05/11/2022 by Eric Shin MD at [facility] Synthes I 207.646 / / Synthes 4mm 6mm 16mm Small Hexagonal Socket Cancellous Full Thread Screw 206.016 - [id number] Implanted:Qty: 1 on 05/11/2022 by Eric Shin MD at [facility] Synthes I 206.016 / / Insurance RISSA BRANHAM CIGNA CIGNA IBEW Advance Directives For more information, please contact: [phone] * Full Code (Latest Code Status on File) Date Activated Date Inactivated Comments 05/11/2022 7:04 PM 05/16/2022 8:37 PM * Full Code Date Activated Date Inactivated Comments 05/11/2022 10:26 AM 05/11/2022 7:04 PM Care Teams Supervisor Sanding Relationship Specialty Start Date End Date Chay Fuller DO PCP - General Internal Medicine 05/11/22 Eric Shin MD [address] [place] [id number] Consulting Physician Orthopedic Surgery 05/16/22
--- OUTSIDE RECORDS SUMMARY | 2024-08-29 01:28 | XMS_ITS | Clinical Summary ---
Author Organization [facility] Address [address] [place] [address] Care Team Providers Care Service Control Operator Name Role Phone Chay Fuller DO Primary Care Provider [phone] Source Comments [facility],non-owned Affiliates and Associated Physician Practices is amultiple site organization consisting of ambulatory clinics and hospital sitesin [place], [place], [place] and [place]. This disclosure is being madepursuant to the Care Everywhere program and may not contain all information available regarding this patient. Last updated 18.[facility] Allergies No known active allergies Medications * Be aware that medications may not be up to date on this document. Alwaysverify current medications with the patient. Medication Sig Dispensed Refills Start Date End Date Status amLODIPine (Norvasc) 10 MG tablet Take 1 (one) tablet by mouth once daily 05/17/2022 Active pantoprazole EC (Protonix) 40 MG tablet Take 1 (one) tablet by mouth every morning 01/08/2023 Active cetirizine (ZyrTEC) 10 MG tablet Active Active Problems Problem Noted Date Diagnosed Date Hereditary hemochromatosis 01/21/2021 Overview (01/05/2022): HFE H63D homozygous, C282Y normal 01/05/22 Fibroscan CAP 342, LSM 9.5 kPa Family History Medical History Relation Name Comments Other - Hepatic/Liver Neg Hx Social History Tobacco Use Types Packs/Day Years Used Date Smoking Tobacco: Former Cigarettes Q uit: 2013 Smokeless Tobacco: Never Tobacco Cessation:Counseling Given: Not Answered Alcohol Use Standard Drinks/Week Comments Yes 0 (1 standard drink = 0.6 oz pur e alcohol) 3-4/day vodka Sex and Gender Information Value Date Recorded Sex Assigned at Not on file Gender Identity Not on file Sexual Orientation Not on file Last Filed Vital Signs Vital Sign Reading Time Taken Comments Blood Pressure 115/81 02/21/2023 8:55 AM CDT Pulse 95 02/21/2023 8:55 AM CDT Temperature 36.8 ??C (98.3 ??F) 02/21/2023 8:55 AM CD T Respiratory Rate - - Oxygen Saturation 99% 02/21/2023 8:55 AM CDT Inhaled Oxygen Concentration - - Weight 99.8 kg (220 lb) 02/21/2023 8:55 AM CDT Height 182.9 cm (6') 02/21/2023 8:55 AM CDT Body Mass Index 29.84 02/21/2023 8:55 AM CDT Plan of Treatment Health Maintenance Due Date Last Done Comments COLOGUARD (AGES 45-75) - COL ON CA SCREENING 1974 COLON MONITORING 1974 COLONOSCOPY - COLON CA SCREENING 1974 CT COLONOGRAPHY - COLON CA SCREENING 1974 Colorectal Cancer Screening 1974 FIT - COLON CA SCREENING 1974 FLEX SIG - COLON CA SCREENING 1974 LIPID TESTING 1974 HIV SCREENING 1989 HEPATITIS C SCREENING 10/07/1992 DTAP/TDAP/TD VACCINES (1 - Tdap) 1993 HEPATITIS B VACCINE (1 of 3 - 19+ 3-dose series) 1993 SCREENING FOR DIABETES 02/21/2023 COVID-19 VACCINE ( - 2023-2 5 season) 2024 INFLUENZA VACCINE (#1) 2024 DEPRESSION SCREENING 08/07/2024 ZOSTER VACCINE (1 of 2) 2024 HIB VACCINE Aged Out No longer eligi ble based on patient's age to complete this topic HPV VACCINE Aged Out No longer eligi ble based on patient's age to complete this topic MENINGOCOCCAL (Group B) VACCINE Aged Out No longer eligible based on patient's age to complete this topic MENINGOCOCCAL VACCINE Aged Out No micky doris eligible based on patient's age to complete this topic PNEUMOCOCCAL VACCINE Aged Out No long er eligible based on patient's age to complete this topic Goals Goal Patient Goal Type Associated Problems Recent Progress Patient-Stated? Author Medication Management General On track( 023 8:51 AM CDT) Melissa Cruz, RN Note: Expected end date: ongoing Interventions: Take all medications as prescribed Let your doctor know right away about any changes in your medications Make sure to request a refill of your medication at least one week prior to your last dose Care Teams Service Control Operator Relationship Specialty Start Date End Date Chay Fuller DO PCP - General 01/04/22
--- OUTSIDE RECORDS SUMMARY | 2024-08-29 01:28 | XMS_ITS | Clinical Summary ---
Author Organization [facility] Address [facility] [place] [address] Care Team Providers Care Research Chemical Engineer Name Role Phone Chay Fuller DO Primary Care Provider [phone] Eric Shin MD Unavailable [phone] Allergies Active Allergy Reactions Criticality Noted Date [...] Hypomagnesemia Hypokalemia Closed fracture of left ankle Surgical History Surgery Date Site/Laterality Comments HERNIA REPAIR Medical History Medical History Date Comments Hypertension Hemochromatosis Family History Relation Name Status Comments Brother Alive Daughter Alive Social History Tobacco Use Types Packs/Day Years [...] week 05/12/2022 How often do you attend [facility] or scientology services? Never 05/12/2022 Do you belong to any clubs o r organizations such as taoist groups, unions, fraternal or athletic groups, or [...] on file Legal Sex Male 3:16 AM PERSONNEL SUPERVISOR Gender Identity Not on file Sexual Orientation Not on file Obstetrics History Last Filed Vital Signs Vital Sign Reading Time Taken Comments Blood Pressure 138/78 04/05/2024 9:02 AM CDT Pulse 102 04/05/2024 9:02 AM CDT Temperature 36.7 ??C (98 ??F) 10/07/2022 8:33 AM PERSONNEL SUPERVISOR Respiratory Rate 20 10/07/2022 8:33 AM PERSONNEL SUPERVISOR Oxygen Saturation 97% 10/07/2022 8:33 AM PERSONNEL SUPERVISOR Inhaled Oxygen Concentration - - Weight 99.3 kg (219 lb) 04/05/2024 9:02 AM CDT Height 181.6 cm (5' 11.5 ) 04/05/2024 9:02 AM CD T Body Mass Index 30.12 04/05/2024 9:02 AM CDT Plan of Treatment Health Maintenance Due Date Last Done Comments Colon Cancer Screening-Colonoscopy 1974 Depression Screening 1974 Hepatitis C Screening 1974 Pneumococcal vaccine <65 (1 of 2 - PCV) 1980 DTaP/Tdap/Td Vaccine (1 - Tdap) 1985 Hepatitis B Screening 1992 Regular Well Visit/Exam 18-64 1992 Covid-19 Vaccine ( season) 04/07/202412/2020, 10/09/2020 Influenza Vaccine (#1) 2024 06/05/2014, 2012 Medical Devices Implanted Type Area School Plant Consultant Device Identifier Shelf Expiration Date Model / Serial / Lot Synthes Lcp 12mm [id number] .7mm 7 Hole Collar 1/3 Tubular Plate Bone 241.371 - [id number] Implanted:Qty: 1 on 05/11/2022 by Eric Shin MD at [facility] Synthes I 241.371 / / Synthes 3.5mm 6mm 24mm 2.5mm Self Tap Small Hexagonal Socket Low Profile 204.824 - [id number] Implanted:Qty: 1 on 05/11/2022 by Eric Shin MD at [facility] Synthes I 204.824 / / Synthes 3.5mm 6mm 18mm 2.5mm Self Tap Small Hexagonal Socket Low Profile 204.818 - [id number] Implanted:Qty: 2 on 05/11/2022 by Eric Shin MD at [facility] Synthes I 204.818 / / Synthes 4mm 6mm 18mm Small Hexagonal Socket Cancellous Full Thread Screw 206.018 - [id number] Implanted:Qty: 2 on 05/11/2022 by Eric Shin MD at [facility] Synthes I 206.018 / / Synthes 3.5mm 6mm 16mm 2.5mm Self Tap Small Hexagonal Socket Low Profile 204.816 - [id number] Implanted:Qty: 1 on 05/11/2022 by Eric Shin MD at [facility] Synthes I 204.816 / / Synthes 4mm 5mm 1.35mm 44mm Cannulated Self Tap Self Drill Small 207.644 - [id number] Implanted:Qty: 1 on 05/11/2022 by Eric Shin MD at [facility] Synthes I 207.644 / / Synthes 4mm 5mm 1.35mm 46mm Cannulated Self Tap Self Drill Small 207.646 - [id number] Implanted:Qty: 1 on 05/11/2022 by Eric Shin MD at [facility] Synthes I 207.646 / / Synthes 4mm 6mm 16mm Small Hexagonal Socket Cancellous Full Thread Screw 206.016 - [id number] Implanted:Qty: 1 on 05/11/2022 by Eric Shin MD at [facility] Synthes I 206.016 / / [facility] C[facility] CIGNA IBEW Advance Directives For more information, please contact: [phone] * Full Code (Latest Code Status on File) Date Activated Date Inactivated Comments 05/11/2022 7:04 PM 05/16/2022 8:37 PM * Full Code Date Activated Date Inactivated Comments 05/11/2022 10:26 AM 05/11/2022 7:04 PM Care Teams Research Chemical Engineer Relationship Specialty Start Date End Date Chay Fuller DO PCP - General Internal Medicine 05/11/22 Eric Shin MD [address] [facility] [address] [address] Consulting Physician Orthopedic Surgery 05/16/22
--- OUTSIDE RECORDS SUMMARY | 2024-08-29 01:28 | XMS_ITS | Patient Health Summary ---
Author Organization [facility] Address [address] [place] [address] Care Team Providers Care Technologist Infectious Disease Name Role Phone Chay Fuller DO Primary Care Provider [phone] Note from [facility],non-owned Affiliates and Associated Physician Practices is amultiple site organization consisting of ambulatory clinics and hospital sitesin [place], [place], [place] and [place]. This disclosure is being madepursuant to the Care Everywhere program and may not contain all information available regarding this patient. Last updated 18.[facility] Allergies No known active allergies Medications * Be aware that medications may not be up to date on this document. Alwaysverify current medications with the patient. * amLODIPine (Norvasc) 10 MG tablet(Started 05/17/2022) Take 1 (one) tablet by mouth once daily * pantoprazole EC (Protonix) 40 MG tablet(Started 01/08/2023) Take 1 (one) tablet by mouth every morning * cetirizine (ZyrTEC) 10 MG tablet Active Problems Problem Noted Date Diagnosed Date Hereditary hemochromatosis 01/21/2021 Social History Tobacco Use Types Packs/Day Years [...] Mass Index 29.84 02/21/2023 8:55 AM CDT Procedures * MD LIVER ELASTOGRAPHY(Performed 01/05/2022) Performed for Hemochromatosis, unspecified hemochromatosis type Results * MD LIVER ELASTOGRAPHY (01/05/2022 8:55 AM CDT) Narrative Gavin Shaffer MD - 01/05/2022 8:55 AM CDT Gavin Shaffer MD ? 01/05/2022 ??7:38 PM Diagnosis: JUJU RN verified patient has no implanted devices and NPO for prior 3 hours. Procedure explained and consent signed. Date of Exam: 01/05/2022 Liver Stiffness: (LSM, kPa) median: ??9.5 IQR (interquartile range): ?? 1.4 IQR/Median% (ideally < 30%): ??15 CAP (controlled attenuation parameter): ??342 Technical Difficulty: None Ordering Provider: Jennifer Cardenas APN Fibroscan interpretation: I have personally reviewed the Fibroscan report and associated tracings. The calculated Liver Stiffness Measurement (LSM, kPa) indicates that: The probability of advanced liver fibrosis is: moderate. The loss of ultrasound signal, (controlled attenuation parameter, CAP [dB/m]), indicates that the probability of hepatic steatosis is: high. Gavin Shaffer MD The following criteria are used to indicate the probability of advanced (stage 3-4) fibrosis: < 7.0 kPa: low 7.0-8.9 kPa: low to moderate 9.0-14.9 kPa: moderate 15-20 kPa: high > 20 kPa: very high Liver stiffness > 20 kPa is also associated with a high probability of complications of portal hypertension including varices and ascites. Liver stiffness > 50 kPa is associated with a high risk of variceal bleeding. These interpretations are based on the following published data: Chicho PJ, Yanira M, Rima M, et al. Accuracy of FibroScan controlled attenuation parameter and liver stiffness measurement in assessing steatosis and fibrosis in patients with nonalcoholic fatty liver disease. Gastroenterology 2019;156:4358-0847. Edin MS, Kimi R, Van Ana Laura ML, et al. Vibration-controlled transient elastography to assess fibrosis and steatosis in patients with nonalcoholic fatty liver disease. Clin Gastroenterol Hepatol 2019;17:156-163. Note: 1. Fibroscan cannot reliably identify earlier stages of fibrosis (ie distinguish F0 from F1 and F2) and thus a histologic stage cannot be predicted from the Fibroscan reading. 2. Assessing the likelihood of advanced fibrosis in patients with indeterminate liver stiffness measurement (LSM) by Fibroscan (e.g., 8-15 kPa) can be improved by also calculating the FIB4 score (Brandenyduke et al. Hepatology Communications 2019;3:0246-6612) or NAFLD Fibrosis score (Loja et al. Clinical Gastroenterology and Hepatology 2019;17:2425-4416. from routine clinical data. 3. Liver stiffness can be increased by factors other than fibrosis including passive congestion, infiltrative processes, active alcoholism, biliary obstruction and marked inflammation. The interpretation of the Fibroscan result provided above may not have taken such clinical factors into account. Disease etiology also influences Fibroscan cutoff values for fibrosis stages and the following cutoffs have been proposed (Diana et al, Clin Gastro Hepatol 2015; 13:27-36): Cutoffs for Stage 3 and Stage 4 fibrosis respectively: Hepatitis B: >9 and >11.7 kPa Hepatitis C: >9.5 and >12.5 kPa HCV-HIV: >11 and >14 kPa Cholestatic liver diseases: >10 and >17.9 kPa NAFLD/LIMON: >10 and >14 kPa CAP estimates of steatosis: normal <200 dB/m mild 200 to 250 dB/m moderate 250-290 dB/m substantial > 290 dB/m (Note that Fibroscan is not a quantitative measure of liver fat.) These criteria are estimates and may change as additional supporting data becomes available. [email or web address] Gavin Kurtz MD PROCEDURE/ MINOR SURGICAL ORDERABLES Care Teams Technologist Infectious Disease Relationship Specialty Start Date End Date Chay Fuller DO PCP - General 01/04/22
--- OUTSIDE RECORDS SUMMARY | 2024-08-29 01:28 | XMS_ITS | Referral Summary ---
Author Organization [facility] Address [address] [place] [address] Care Team Providers Care Lapidarist Name Role Phone Chay Fuller DO Primary Care Provider [phone] [phone] Source Comments [facility],non-owned Affiliates and Associated Physician Practices is amultiple site organization consisting of ambulatory clinics and hospital sitesin [place], [place], [place] and [place]. This disclosure is being madepursuant to the Care Everywhere program and may not contain all information available regarding this patient. Last updated 18.[facility] Allergies No known active allergies Medications * [...] 01/05/22 Fibroscan CAP 342, LSM 9.5 kPa Social History Tobacco Use Types Packs/Day Years [...] 02/21/2023 8:55 AM CDT Plan of Treatment Not on file Goals Goal Patient Goal Type Associated Problems [...] prior to your last dose Care Teams Lapidarist Relationship Specialty Start Date End Date Chay Fuller DO [facility] - General 01/04/22
== END 2024-08-22 08:11 | disposition home or self-care (01) ==
LOC: ANHLAB 08:11
PROVIDERS: PCP Clinical Nurse Specialist; Visit Provider Internal Medicine Hematology & Oncology
DX: E83.110 Hereditary hemochromatosis (principal)
CPT/HCPCS: 36415; 80048; 85025

== ENCOUNTER 2024-08-23 10:07 | Outpatient (CLI) | payer OTHER, SELFPAY ==
[2024-08-23 11:03] LABS: Iron 75 ug/dL (49-181)
[2024-08-23 11:16] LABS: Percent Iron Saturation 19 % (20-50)
--- OUTSIDE RECORDS SUMMARY | 2024-08-29 06:18 | XMS_ITS | Clinical Summary ---
[facility] Address [address] [place] [address] Care Team Providers Care Gang Vibrator Operator Name Role Phone Chay Fuller Gil Primary Care Provider Allergies No known active allergies Medications pantoprazole (PROTONIX) 40 mg Tablet, Delayed Release (E.C.) TAKE 1 TABLET BY MOUTH EVERY MORNING 09/30/2020 Active levETIRAcetam (KEPPRA) 500 mg tablet Take 500 mg by mouth every 12 hours. 06/27/2022 Active Active Problems Problem Noted Date Diagnosed Date Hereditary hemochromatosis 01/21/2021 Resolved Problems Problem Noted Date Diagnosed Date Resolved Date Iron overload 10/22/2020 01/21/2021 Encounters Date Type Department Care Team Description 08/27/2024 External Device Data STL ABSTRACTION Provider, Abstract 08/23/2024 9:30 AM UNDERGROUND UTILITY LOCATOR Office Visit [facility] [address] [place] [id number] Marquise Carrillo MD Hereditary hemochromatosis (Primary Dx) 08/23/2024 Orders Only [facility] - [place] [address] [place] [address] Marquise Carrillo MD 08/22/2024 Orders Only [facility] [place] [address] [place] [address] Marquise Carrillo MD 08/20/2024 External Device Data STL ABSTRACTION Provider, Abstract 06/10/2024 External Device Data STL ABSTRACTION Provider, Abstract 06/05/2024 External Device Data STL ABSTRACTION Provider, Abstract from Last 3 Months Family History Relation Name Status Comments Brother Alive Daughter Alive Father Alive Mother Alive Sister Alive Son Alive Social History Tobacco Use Types Packs/Day Years Used Date Smoking Tobacco: Former Smokeless Tobacco: Never Tobacco Cessation:Counseling Given: Not Answered Comments:using nicotine tablets Alcohol Use Standard Drinks/Week Comments Yes 0 (1 standard drink = 0.6 oz pur e alcohol) Sex and Gender Information Value Date Recorded Sex Assigned at Not on file Legal Sex Male 3:24 PM UNDERGROUND UTILITY LOCATOR Gender Identity Not on file Sexual Orientation Not on file Last Filed Vital Signs Vital Sign Reading Time Taken Comments Blood Pressure 107/71 08/23/2024 9:36 AM UNDERGROUND UTILITY LOCATOR Pulse 74 08/23/2024 9:36 AM UNDERGROUND UTILITY LOCATOR Temperature 36.4 ??C (97.5 ??F) 08/23/2024 9:36 AM CS T Respiratory Rate 16 08/23/2024 9:36 AM UNDERGROUND UTILITY LOCATOR Oxygen Saturation 98% 08/23/2024 9:36 AM UNDERGROUND UTILITY LOCATOR Inhaled Oxygen Concentration - - Weight 90.4 kg (199 lb 6.4 oz) 08/23/2024 9:36 A M UNDERGROUND UTILITY LOCATOR Height 182.9 cm (6') 01/18/2022 10:13 AM CDT Body Mass Index 27.04 01/18/2022 10:13 AM CDT Plan of Treatment Upcoming Encounters Date Type Department Care Team (Late st Contact Info) Description 12/27/2024 11:30 AM CDT Office Visit [facility] [place] [address] [facility] [address] [place] [address] Marquise Carrillo MD [address] [facility] [address] [place] [address] Health Maintenance Due Date Last Done Comments Pre-Diabetes and Diabetes Screening 1975 DTAP/TDAP/TD VACCINES (1 - Tdap) 1993 HEPATITIS B VACCINES (1 of 3 - 19+ 3-dose series) 03/1994 COLORECTAL SCREENING 10/13/2019 Colorectal Cancer Screening 10/13/2019 FIT-DNA Q 3 years 10/13/2019 FIT/FOBT Q 1 year 10/13/2019 Flex Sig/CT Colonography Q 5 years 10/13/2019 INFLUENZA VACCINE (#1) 2024 Preventative Visit- Commercial 08/07/2024 Procedures Procedure Name Priority Date/Time Associated Diagnosis Comments IRON LEVEL Routine 08/23/2024 3:07 PM UNDERGROUND UTILITY LOCATOR BASIC METABOLIC PANEL Routine 08/22/2024 4:02 PM UNDERGROUND UTILITY LOCATOR CBC WITH DIFFERENTIAL Routine 08/22/2024 3:43 PM UNDERGROUND UTILITY LOCATOR from Last 3 Months Results * IRON LEVEL (08/23/2024 3:07 PM UNDERGROUND UTILITY LOCATOR) Blood us Marquise Carrillo MD CHEMISTRY ORDERABLES Final Resu lt * BASIC METABOLIC PANEL (08/22/2024 4:02 PM UNDERGROUND UTILITY LOCATOR) Blood us Marquise Carrillo MD CHEMISTRY ORDERABLES Final Resu lt * CBC WITH DIFFERENTIAL (08/22/2024 3:43 PM UNDERGROUND UTILITY LOCATOR) Blood us Marquise Carrillo MD HEMATOLOGY ORDERABLES Final Res ult from Last 3 Months Insurance COUNT INCLUDES THE [facility] OPEN ACCESS HMO Care Teams Gang Vibrator Operator Relationship Specialty Start Date End Date Chay Fuller DO [address] [facility] [address] [place] [address] PCP - General Internal Medicine 10/22/20
--- OUTSIDE RECORDS SUMMARY | 2024-08-29 06:18 | XMS_ITS | Referral Summary ---
Author Organization [facility] [employer] Address [address] [place] [address] Care Team Providers Care Knitting Machine Fixer Head Name Role Phone Chay Fuller DO Primary Care Provider [phone] Source Comments [facility] [employer],non-owned Affiliates and Associated Physician Practices is amultiple site organization consisting of ambulatory clinics and hospital sitesin [place], [place], [place] and [place]. This disclosure is being madepursuant to the Care Everywhere program and may not contain all information available regarding this patient. Last updated 18.[facility] [employer] Allergies No known active allergies Medications * [...] prior to your last dose Care Teams Knitting Machine Fixer Head Relationship Specialty Start Date End Date Chay Fuller DO [facility] - General 01/04/22
--- OUTSIDE RECORDS SUMMARY | 2024-08-29 06:18 | XMS_ITS | Clinical Summary ---
Author Organization [facility] Address [address] [place] [address] Care Team Providers Care Laundry Manager Name Role Phone Chay Fuller DO Primary Care Provider [phone] Source Comments [facility],non-owned Affiliates and Associated Physician Practices is amultiple site organization consisting of ambulatory clinics and hospital sitesin [place], [place], [place] and [place]. This disclosure is being madepursuant to the Care Everywhere program and may not contain all information available regarding this patient. Last updated 18.[facility] Allergies No known active allergies Medications * [...] prior to your last dose Care Teams Laundry Manager Relationship Specialty Start Date End Date Chay Fuller DO PCP - General 01/04/22
--- OUTSIDE RECORDS SUMMARY | 2024-08-29 06:18 | XMS_ITS | Clinical Summary ---
Author Organization [facility] Address [facility] [place] [address] Care Team Providers Care Cnc Set Up Operator Name Role Phone Chay Fuller DO Primary Care Provider [phone] Eric Shin MD Unavailable [phone] Allergies Active Allergy Reactions Criticality Noted [...] 05/12/2022 How often do you attend [facility] or [facility] services? Never 05/12/2022 Do you belong to any clubs o r organizations such as islam groups, unions, fraternal or athletic groups, or [...] on file Legal Sex Male 3:16 AM NURSING HOME MANAGER Gender Identity Not on file Sexual Orientation Not on file Obstetrics History Last Filed Vital Signs Vital Sign Reading Time Taken Comments Blood Pressure 138/78 04/05/2024 9:02 AM CDT Pulse 102 04/05/2024 9:02 AM CDT Temperature 36.7 ??C (98 ??F) 10/07/2022 8:33 AM NURSING HOME MANAGER Respiratory Rate 20 10/07/2022 8:33 AM NURSING HOME MANAGER Oxygen Saturation 97% 10/07/2022 8:33 AM NURSING HOME MANAGER Inhaled Oxygen Concentration - - Weight 99.3 [...] 06/05/2014, 2012 Medical Devices Implanted Type Area Outpatient Phlebotomist Device Identifier Shelf Expiration Date Model / Serial / Lot Synthes Lcp 12mm [id number] .[id number] 7 Hole Collar 1/3 Tubular Plate Bone 241.371 - [id number] Implanted:Qty: 1 on 05/11/2022 by Eric Shin MD at [facility] Synthes I 241.371 / / Synthes 3.5mm 6mm 24mm 2.5mm Self Tap Small Hexagonal Socket Low Profile 204.824 - [id number] Implanted:Qty: 1 on 05/11/2022 by Eric Shin MD at [facility] Synthes I 204.824 / / Synthes 3.5mm 6mm 18mm 2.5mm Self Tap Small Hexagonal Socket Low Profile 204.818 - [id number] Implanted:Qty: 2 on 05/11/2022 by Eric Shin MD at [facility] Synthes I 204.818 / / Synthes 4mm 6mm 18mm Small Hexagonal Socket Cancellous Full Thread Screw 206.018 - [id number] Implanted:Qty: 2 on 05/11/2022 by Eric Shin MD at [facility] Synthes I 206.018 / / Synthes 3.5mm 6mm 16mm 2.5mm Self Tap Small Hexagonal Socket Low Profile 204.816 - [id number] Implanted:Qty: 1 on 05/11/2022 by Eric Shin MD at [facility] Synthes I 204.816 / / Synthes 4mm 5mm 1.35mm 44mm Cannulated Self Tap Self Drill Small 207.644 - [id number] Implanted:Qty: 1 on 05/11/2022 by Eric Shin MD at [facility] Synthes I 207.644 / / Synthes 4mm 5mm 1.35mm 46mm Cannulated Self Tap Self Drill Small 207.646 - [id number] Implanted:Qty: 1 on 05/11/2022 by Eric Shin MD at [facility] Synthes I 207.646 / / Synthes 4mm 6mm 16mm Small Hexagonal Socket Cancellous Full Thread Screw 206.016 - [id number] Implanted:Qty: 1 on 05/11/2022 by Eric Shin MD at [facility] Synthes I 206.016 / / [facility] CIGNA CIGNA IBEW Advance Directives For more information, please contact: [phone] * Full Code (Latest Code Status on File) Date Activated Date Inactivated Comments 05/11/2022 7:04 PM 05/16/2022 8:37 PM * Full Code Date Activated Date Inactivated Comments 05/11/2022 10:26 AM 05/11/2022 7:04 PM Care Teams Cnc Set Up Operator Relationship Specialty Start Date End Date Chay Fuller DO PCP - General Internal Medicine 05/11/22 Eric Shin MD [address] [facility] [address] [address] Consulting Physician Orthopedic Surgery 05/16/22
--- OUTSIDE RECORDS SUMMARY | 2024-08-29 06:18 | XMS_ITS | Clinical Summary ---
Author Organization [facility] Address [address] [place] [address]. [place], [place] [id number] [place] [address] Care Team Providers Care Heavy Cleaner Name Role Phone None, Provider Primary Care Provider Unavaila ble Social History Tobacco Use Types Packs/Day Years Used Date Smoking Tobacco: Never Assessed Sex and Gender Information Value Date Recorded Sex Assigned at Not on file Legal Sex Male 10:22 PM DEVELOPMENTAL ELECTRONICS ASSEMBLER Gender Identity Not on file Sexual Orientation [...] age to complete this topic Care Teams Heavy Cleaner Relationship Specialty Start Date End Date None, Provider, PCP - General 05/09/19
--- OUTSIDE RECORDS SUMMARY | 2024-08-29 06:18 | XMS_ITS | Encounter Summary ---
Author Organization [facility] Address [address] [place] [address] Care Team Providers Care Violin Repairer Name Role Phone Chay Fuller Primary Care Provider Reason for Visit * Reason Comments Follow Up Encounter Details Date Type Department Care Team (Late st Contact Info) Description 08/23/2024 9:30 AM FINGERPRINT CLASSIFIER Office Visit [facility] and H[facility]ology - [place] [address] [facility] [address] [place] [address] Marquise Carrillo MD [address] [facility] [address] [place] [address] Hereditary hemochromatosis (Primary Dx) Social History Tobacco Use Types Packs/Day Years Used Date Smoking Tobacco: Former Smokeless Tobacco: Never Tobacco Cessation:Counseling Given: Not Answered Comments:using nicotine tablets Alcohol Use Standard Drinks/Week Comments Yes 0 (1 standard drink = 0.6 oz pur e alcohol) Sex and Gender Information Value Date Recorded Sex Assigned at Not on file Legal Sex Male 3:24 PM FINGERPRINT CLASSIFIER Gender Identity Not on file Sexual Orientation Not on file documented as of this encounter Last Filed Vital Signs Vital Sign Reading Time Taken Comments Blood Pressure 107/71 08/23/2024 9:36 AM FINGERPRINT CLASSIFIER Pulse 74 08/23/2024 9:36 AM FINGERPRINT CLASSIFIER Temperature 36.4 ??C (97.5 ??F) 08/23/2024 9:36 AM CS T Respiratory Rate 16 08/23/2024 9:36 AM FINGERPRINT CLASSIFIER Oxygen Saturation 98% 08/23/2024 9:36 AM FINGERPRINT CLASSIFIER Inhaled Oxygen Concentration - - Weight 90.4 kg (199 lb 6.4 oz) 08/23/2024 9:36 A M FINGERPRINT CLASSIFIER Height - - Body Mass Index 27.04 01/18/2022 10:13 AM CDT documented in this encounter Progress Notes * Marquise Carrillo MD - 08/23/2024 10:26 AM CST HEMATOLOGY / ONCOLOGY PROGRESS NOTE Patient Identification: Name: Jese Munson Age: 48 y.o. Sex: male : 1975 DIAGNOSIS Hereditary hemochromatosis with H63D homozygous state diagnosed October 23, 2020. CURRENT TREATMENT Phlebotomy on every 3 months basis TREATMENT HISTORY Biweekly phlebotomy started November 26, 2020. Last phlebotomy done on February 04, 2021 SUBJECTIVE Patient came to the office for follow-up visit. He was admitted to the [facility] for double pneumonia in June. He has quit drinking in end of June. He has lost almost 20 pound weight but gained 10 pound weight back. No other new complaints. Review of system Constitutional: denies fevers, sweats, patient is feeling more energetic and better. HEENT: denies sinus congestion, hearing or vision problems, complain of occasional nosebleed Respiratory: denies cough, dyspnea, wheeze Cardiovascular: denies chest pain, exertional chest pressure/discomfort, nausea, syncope, shortnessof breath GI: denies constipation, diarrhea, dsyphagia, reflux symptoms, vomiting, melena : denies dysuria, frequency, incontinence, urgency, Integumentary system: no lymphadenopathy, sweats, flushing Musculoskeletal: denies: myalgia, arthralgia Neurological: denies blurry or disturbed vision, numbness/weakness, dizziness Skin: No lumps, bumps or rashes. 12 point review of system was reviewed Objective: Vital signs in last 24 hours: As per nursing note Exam: General appearance: alert, cooperative, no distress, appears stated age Head: normocephalic, without obvious abnormality, atraumatic Eyes: conjunctivae/corneas clear, EOM's intact Ears: normal external ear canals AU Nose: Nares normal. Septum midline. Mucosa normal. No drainage or sinus tenderness Throat: Lips, mucosa, and tongue normal. Teeth and gums normal Neck: supple, symmetrical, trachea midline. Lungs: clear to auscultation bilaterally Heart: regular rate and rhythm, S1, S2 normal, no murmur, click, rub or gallop Abdomen: soft, non-tender. Bowel sounds normal. No masses, No organomegaly Extremities: extremities normal, atraumatic, no cyanosis or edema Skin: Skin color, texture, turgor normal. No rashes or lesions Lymph nodes: No lymphadenopathy Neuro: No obvious focal deficit Exam as above PATH LABS Labs from January 20 showed hemoglobin 14.1 iron 130 saturation 47% ferritin 917 Labs from April 22 showed hemoglobin 13.9 hematocrit 40.2 iron 45 saturation 12% ferritin 94.2 AST 297 ALT 144 Labs from July 12 showed iron 103 saturation 31% ferritin 136 hemoglobin 13.8 Labs from October 18 showed hemoglobin 13.9 hematocrit 40 AST 192 ALT 86 iron 307 saturation 31% ferritin 72 Labs from January 17 showed hemoglobin 13.4 hematocrit 37.7 platelet 114,000 creatinine 0.8 AST 277 ALT 123 iron 97 iron saturation 30% ferritin 152 Labs from September 20 showed iron 84 AST of 240 ALT 125 ferritin 40 hemoglobin 13 platelet 100,000 Labs from March 22 showed WBC 6.3 hemoglobin 12.9 platelet 103,000 AST 228 ALT 87 iron 116 iron saturation 29% ferritin 29 Labs from September 29 showed iron 52 saturation 13% ferritin 25 hemoglobin 12.3 platelet 156 WBC 7.5 AST 172 ALT 57 total bilirubin 1.1 Labs from December 20 showed hemoglobin 14.2 platelet 1 28,000 iron 123 saturation 32 ferritin 28 total bilirubin 2.0 AST 217 ALT 77 Labs from April 25 showed platelets 78,000 WBC 5.6 hemoglobin 14.9 creatinine 0.6 bilirubin 1.6AST 260 ALT 76 iron 110 saturation 28 ferritin 36 Labs from August 22 showed hemoglobin 12.5 platelet 177,000 WBC 8.2 Assessment: Plan: Patient Active Problem List Diagnosis Date Noted Hereditary hemochromatosis 01/21/2021 Hereditary hemochromatosis with H63D homozygous state. Patient also has a history of heavy drinking. Phlebotomy treatment started on November 26, 2020. Iron studies are pending. Patient has quit drinking. Thrombocytopenia secondary to hepatic steatosis. Platelet count is normal. He has quit drinking in June 2024. Hepatic steatosis. Liver enzymes will be monitored again in 4 months. He has quit drinking. He willalso follow-up with the senior engineering manager at [facility]. Alcohol withdrawal seizures. Stable on Keppra. He will follow-up with the neurologist. Anemia. Stable. Follow-up in 4 months. 08/23/2024 Marquise Carrillo MD ERPRINT CLASSIFIER documented in this encounter Plan of Treatment Upcoming Encounters Date Type Department Care Team (Late st Contact Info) Description 12/27/2024 11:30 AM CDT Office Visit [facility]ology - [place] [address] [facility] [address] [place] [address] Marquise Carrillo MD [address] [facility] [address] [place] [address] Scheduled Orders Name Type Priority Associated Diagnoses Orde r Schedule COMPREHENSIVE METABOLIC PANEL Lab Stat Hereditary hemochromatosis Expected: 12/13/2024, Expires: 08/23/2025 FERRITIN Lab Routine Hereditary hemochromatosis Expected: 12/13/2024, Expires: 08/23/2025 IRON, TIBC, AND PERCENT SATURATION Lab Routine Hereditary hemochromatosis Expected: 12/13/2024, Expires: 08/23/2025 CBC WITHOUT DIFFERENTIAL Lab Stat Hereditary hemochromatosis Expected: 12/13/2024, Expires: 08/23/2025 FERRITIN Lab Routine Hereditary hemochromatosis Expected: 08/23/2024, Expires: 08/23/2025 IRON, TIBC, AND PERCENT SATURATION Lab Routine Hereditary hemochromatosis Expected: 08/23/2024, Expires: 08/23/2025 documented as of this encounter Visit Diagnoses Diagnosis Hereditary hemochromatosis- Primary documented in this encounter Care Teams Violin Repairer Relationship Specialty Start Date End Date Chay Fuller DO [address] [facility] [address] [place] [address] PCP - General Internal Medicine 10/22/20 documented as of this encounter
--- OUTSIDE RECORDS SUMMARY | 2024-08-29 06:18 | XMS_ITS | Referral Summary ---
Author Organization [facility] Address [facility] [place] [address] Care Team Providers Care Glove Factory Sewer Name Role Phone Chay Fuller DO Primary Care Provider [phone] Eric Shin MD Unavailable [phone] Allergies Active Allergy Reactions Criticality Noted Date [...] How often do you attend chur or congregation services? Never 05/12/2022 Do you belong to any clubs o r organizations such as jainism groups, unions, fraternal or athletic groups, or [...] on file Legal Sex Male 3:16 AM GREASE MAN Gender Identity Not on file Sexual Orientation Not on file Last Filed Vital Signs Vital Sign Reading Time Taken Comments Blood Pressure 138/78 04/05/2024 9:02 AM CDT Pulse 102 04/05/2024 9:02 AM CDT Temperature 36.7 ??C (98 ??F) 10/07/2022 8:33 AM GREASE MAN Respiratory Rate 20 10/07/2022 8:33 AM GREASE MAN Oxygen Saturation 97% 10/07/2022 8:33 AM GREASE MAN Inhaled Oxygen Concentration - - Weight 99.3 kg (219 lb) 04/05/2024 9:02 AM CDT Height 181.6 cm (5' 11.5 ) 04/05/2024 9:02 AM CD T Body Mass Index 30.12 04/05/2024 9:02 AM CDT Plan of Treatment Not on file Medical Devices Implanted Type Area Restaurant Hostess Device Identifier Shelf Expiration Date Model / Serial / Lot Synthes Lcp 12mm [id number] .7mm 7 Hole Collar 08/09 Tubular Plate Bone 241.371 - [id number] Implanted:Qty: 1 on 05/11/2022 by Eric Shin MD at [facility] Synthes I 241.371 / / Synthes 3.5mm 6mm 24mm 2.5mm Self Tap Small Hexagonal Socket Low Profile 204.824 - [id number] Implanted:Qty: 1 on 05/11/2022 by Eric Shin MD at [facility] S[employer] I 204.824 / / Synthes 3.5mm 6mm 18mm 2.5mm Self Tap Small Hexagonal Socket Low Profile 204.818 - [id number] Implanted:Qty: 2 on 05/11/2022 by Eric Shin MD at [facility] Synthe[employer] I 204.818 / / Synthes 4mm 6mm 18mm Small Hexagonal Socket Cancellous Full Thread Screw 206.018 - [id number] Implanted:Qty: 2 on 05/11/2022 by Eric Shin MD at [facility] S[employer] I 206.018 / / Synthes 3.5mm 6mm 16mm 2.5mm Self Tap Small Hexagonal Socket Low Profile 204.816 - [id number] Implanted:Qty: 1 on 05/11/2022 by Eric Shin MD at [facility] [employer] I 204.816 / / Synthes 4mm 5mm 1.35mm 44mm Cannulated Self Tap Self Drill Small 207.644 - [id number] Implanted:Qty: 1 on 05/11/2022 by Eric Shin MD at [facility] S[employer] I 207.644 / / Synthes 4mm 5mm 1.35mm 46mm Cannulated Self Tap Self Drill Small 207.646 - [id number] Implanted:Qty: 1 on 05/11/2022 by Eric Shin MD at [facility] [employer] I 207.646 / / Synthes 4mm 6mm 16mm Small Hexagonal Socket Cancellous Full Thread Screw 206.016 - [id number] Implanted:Qty: 1 on 05/11/2022 by Eric Shin MD at [facility] [employer] I 206.016 / / Insurance RISSA BRANHAM CIGNA CIGNA IBEW Advance Directives For more information, please contact: [phone] * Full Code (Latest Code Status on File) Date Activated Date Inactivated Comments 05/11/2022 7:04 PM 05/16/2022 8:37 PM * Full Code Date Activated Date Inactivated Comments 05/11/2022 10:26 AM 05/11/2022 7:04 PM Care Teams Glove Factory Sewer Relationship Specialty Start Date End Date Chay Fuller DO PCP - General Internal Medicine 05/11/22 Eric Shin MD [address] [address] [place] [address] [place] [address] Consulting Physician Orthopedic Surgery 05/16/22
--- OUTSIDE RECORDS SUMMARY | 2024-08-29 06:18 | XMS_ITS | Encounter Summary ---
Author Organization [facility] [employer] [facility] Address [address] [place] [address] Care Team Providers Care Land Degradation Analyst Name Role Phone Chay Fuller DO Primary Care Provider Encounter Details Date Type Department Care Team (Late Contact Info) Description 08/22/2024 Orders Only [facility] Oncology and Hematology [facility] [address] [place] [address] Marquise Carrillo MD [facility] [employer] [address] [place] [address] Social History Tobacco Use Types Packs/Day Years Used Date Smoking Tobacco: Former Smokeless Tobacco: Never Comments:using nicotine tabl ets Alcohol Use Standard Drinks/Week Comments Yes 0 (1 standard drink = 0.6 oz pur e alcohol) Sex and Gender Information Value Date Recorded Sex Assigned at Not on file Legal Sex Male 3:24 PM PORCELAIN FINISHER Gender Identity Not on file Sexual Orientation Not on file documented as of this encounter Plan of Treatment Upcoming Encounters Date Type Department Care Team (Late Contact Info) Description 12/27/2024 11:30 AM CDT Office Visit [facility] Oncology and Hematology [facility] [address] [place] [address] Marquise Carrillo MD [facility] [employer] [address] [place] [address] documented as of this encounter Procedures Procedure Name Priority Date/Time Associated Diagnosis Comments BASIC METABOLIC PANEL Routine 08/22/2024 4:02 PM PORCELAIN FINISHER CBC WITH DIFFERENTIAL Routine 08/22/2024 3:43 PM PORCELAIN FINISHER documented in this encounter Results * BASIC METABOLIC PANEL (08/22/2024 4:02 PM PORCELAIN FINISHER) Blood us Marquise Carrillo MD CHEMISTRY ORDERABLES Final Resu lt * CBC WITH DIFFERENTIAL (08/22/2024 3:43 PM PORCELAIN FINISHER) Blood us Marquise Carrillo MD HEMATOLOGY ORDERABLES Final Res ult documented in this encounter Visit Diagnoses Not on filedocumented in this encounter Care Teams Land Degradation Analyst Relationship Specialty Start Date End Date Chay Fuller DO [address] [address] PCP - General Internal Medicine 10/22/20 documented as of this encounter
--- OUTSIDE RECORDS SUMMARY | 2024-08-29 06:18 | XMS_ITS | Patient Health Summary ---
Author Organization [facility] Address [address] [place] [address] Care Team Providers Care Gambreler Name Role Phone Chay Fuller DO Primary Care Provider +1- [phone] Note from [facility],non-owned Affiliates and Associated Physician Practices is amultiple site organization consisting of ambulatory clinics and hospital sitesin [place], [place], [place] and [place]. This disclosure is being madepursuant to the Care Everywhere program and may not contain all information available regarding this patient. Last updated 18.[facility] Allergies No known active allergies Medications [...] 29.84 02/21/2023 8:55 AM CDT Procedures * [place] LIVER ELASTOGRAPHY(Performed 01/05/2022) Performed for Hemochromatosis, unspecified hemochromatosis type Results * [place] LIVER ELASTOGRAPHY (01/05/2022 8:55 AM CDT) Narrative [...] patients with nonalcoholic fatty liver disease. Gastroenterology 2019;156:8644-5976. Edin MS, Kimi R, Van Ana Laura [...] FIB4 score (Brandenyduke et al. Hepatology Communications 2019;3:9965-9843) or NAFLD Fibrosis score (Loja et al. Clinical Gastroenterology and Hepatology 2019;17:0311-1444. from routine clinical data. 3. Liver stiffness [...] change as additional supporting data becomes available. [email or web address] Gavin Kurtz MD PROCEDURE/ MINOR SURGICAL ORDERABLES Care Teams Gambreler Relationship Specialty Start Date End Date Chay Fuller DO PCP - General 01/04/22
== END 2024-08-23 10:08 | disposition home or self-care (01) ==
LOC: ANHLAB 10:08
PROVIDERS: PCP Clinical Nurse Specialist; Visit Provider Internal Medicine Hematology & Oncology
DX: E83.110 Hereditary hemochromatosis (principal)
CPT/HCPCS: 36415; 82728; 83540; 83550

== ENCOUNTER 2024-10-01 08:48 | Outpatient (CLI) | payer OTHER, SELFPAY ==
--- NOTE | ~2024-10-01 | CT_ITS ---
CT Scan of the Chest without Contrast: Clinical Indication: Pulmonary nodule Technique: Contiguous sections were acquired throughout the chest without intravenous contrast. Dose reduction technique was used on this scan by utilizing automated exposure control and iterative recon struction technique. The dose-length product (DLP) was 142.46 mGy-cm. Findings: There is no evidence of any significant mediastinal, hilar or axillary lymphadenopathy. The mediastin al soft tissues appear normal. There is no evidence of pleural or pericardial effusion. 9 mm right upper lobe pulmonary nodule present (axial image 49). Images through the upper abdomen reveal no abnormalities. T4 compression deformity present, somewhat age indeterminate. Impression: 9 mm right upper lobe pulmonary nodule present, indeterminate. According to Fleischner Society criter ia, workup options include 3 month follow-up CT, PET/CT, or tissue sampling. Reviewed, dictated and finalized at [facility]. ITAL UNIT CLERK Impression: 9 mm right upper lobe pulmonary nodule present, indeterminate. According to Fle ischner Society criteria, workup options include 3 month follow-up CT, PET/CT, or tissue sampling.
--- OUTSIDE RECORDS SUMMARY | 2024-10-01 09:21 | XMS_ITS | Clinical Summary ---
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
--- OUTSIDE RECORDS SUMMARY | 2024-10-01 09:22 | XMS_ITS | Clinical Summary ---
Author Organization [facility] Address [facility] [place] [address] Care Team Providers Care Security Developer Name Role Phone Chay Fuller DO Primary Care Provider +1- [phone] Eric Shin MD Unavailable Allergies Active Allergy Reactions Criticality Noted Date [...] week 05/12/2022 How often do you attend [facility] or yazidi services? 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 Gender Identity Not on file Sexual Orientation Not on file Obstetrics History Last Filed Vital Signs Vital Sign Reading Time Taken Comments Blood Pressure 138/78 04/05/2024 9:02 AM CDT Pulse 102 04/05/2024 9:02 AM CDT Temperature 36.7 C (98 F) 10/07/2022 8:33 AM ENVIRONMENTAL ENGINEERING INTERN Respiratory Rate 20 10/07/2022 8:33 AM ENVIRONMENTAL ENGINEERING INTERN Oxygen Saturation 97% 10/07/2022 8:33 AM ENVIRONMENTAL ENGINEERING INTERN Inhaled Oxygen Concentration - - Weight 99.3 kg (219 lb) 04/05/2024 9:02 AM CDT Height 181.6 cm (5' 11.5 ) 04/05/2024 9:02 AM CD T Body Mass Index 30.12 04/05/2024 9:02 AM CDT Plan of Treatment Health Maintenance Due Date Last Done Comments Colon Cancer Screening-Colonoscopy 1974 Depression Screening 1974 Hepatitis C Screening 1974 DTaP/Tdap/Td Vaccine (1 - Tdap) 1985 Hepatitis B Screening 1992 Regular Well Visit/Exam 18-64 1992 Pneumococcal vaccine <65 (1 of 2 - PCV) 1993 Covid-19 Vaccine (3 - 2024-25 season) 04/07/202412/2020, 10/09/2020 Influenza Vaccine (#1) 2024 06/05/2014, 2012 Medical Devices Implanted Type Area Lens Finisher Device Identifier Shelf Expiration Date Model / Serial / Lot Synthes Lcp 12mm [id number] .[id number] 7 Hole Collar 1/3 Tubular Plate Bone 241.371 - [id number] Implanted:Qty: 1 on 05/11/2022 by Eric Shin MD at [facility] Synthes I 241.371 / / Synthes 3.5mm 6mm 24mm 2.5mm Self Tap Small Hexagonal Socket Low Profile 204.824 - [id number] Implanted:Qty: 1 on 05/11/2022 by Eric Shin MD at [facility] Synthes I 204.824 / / Synthes 3.5mm 6mm 18mm 2.5mm Self Tap Small Hexagonal Socket Low Profile 204.818 - [id number] Implanted:Qty: 2 on 05/11/2022 by Eric Shin MD at [facility] Synthes I 204.818 / / Synthes 4mm 6mm 18mm Small Hexagonal Socket Cancellous Full Thread Screw 206.018 - [id number] Implanted:Qty: 2 on 05/11/2022 by Eric Shin MD at [facility] Synthes I 206.018 / / Synthes 3.5mm 6mm 16mm 2.5mm Self Tap Small Hexagonal Socket Low Profile 204.816 - [id number] Implanted:Qty: 1 on 05/11/2022 by Eric Shin MD at [facility] Synthes I 204.816 / / Synthes 4mm 5mm 1.35mm 44mm Cannulated Self Tap Self Drill Small 207.644 - [id number] Implanted:Qty: 1 on 05/11/2022 by Eric Shin MD at [facility] Synthes I 207.644 / / Synthes 4mm 5mm 1.35mm 46mm Cannulated Self Tap Self Drill Small 207.646 - [id number] Implanted:Qty: 1 on 05/11/2022 by Eric Shin MD at [facility] Synthes I 207.646 / / Synthes 4mm 6mm 16mm Small Hexagonal Socket Cancellous Full Thread Screw 206.016 - [id number] Implanted:Qty: 1 on 05/11/2022 by Eric Shin MD at [facility] Synthes I 206.016 / / [facility] CIGNA CIGNA IBEW Advance Directives For more information, please contact: [phone] * Full Code (Latest Code Status on File) Date Activated Date Inactivated Comments 05/11/2022 7:04 PM 05/16/2022 8:37 PM * Full Code Date Activated Date Inactivated Comments 05/11/2022 10:26 AM 05/11/2022 7:04 PM Care Teams Security Developer Relationship Specialty Start Date End Date Chay Fuller DO PCP - General Internal Medicine 05/11/22 Eric Shin MD [address] [facility] [address] [address] Consulting Physician Orthopedic Surgery 05/16/22
--- OUTSIDE RECORDS SUMMARY | 2024-10-01 09:22 | XMS_ITS | Clinical Summary ---
Author Organization [facility] Address [address] [place] [address] Care Team Providers Care Site Supervisor Name Role Phone Chay Fuller DO Primary Care Provider +1 [phone] Source Comments [facility],non-owned Affiliates and Associated Physician Practices is amultiple site organization consisting of ambulatory clinics and hospital sitesin [place], [place], [place] and [place]. This disclosure is being madepursuant to the Care Everywhere program and may not contain all information available regarding this patient. Last updated 18.[facility] Allergies No known active allergies Medications * [...] Date Smoking Tobacco: Former Cigarettes Q uit: 2014 Smokeless Tobacco: Never Tobacco Cessation:Counseling Given: Not [...] 95 02/21/2023 8:55 AM CDT Temperature 36.8 C (98.3 F) 02/21/2023 8:55 AM CDT Respiratory Rate - - Oxygen Saturation 99% [...] prior to your last dose Care Teams Site Supervisor Relationship Specialty Start Date End Date Chay Fuller DO PCP - General 01/04/22
--- OUTSIDE RECORDS SUMMARY | 2024-10-01 09:22 | XMS_ITS | Referral Summary ---
Author Organization [facility] Address [facility] [place] [address] Care Team Providers Care Supervisor Of Way Name Role Phone Chay Fuller DO Primary Care Provider +1- [phone] Eric Shin MD Unavailable [phone] Allergies Active Allergy Reactions Criticality Noted [...] How often do you attend chur or quaker services? 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 Gender Identity Not on file Sexual Orientation Not on file Last Filed Vital Signs Vital Sign Reading Time Taken Comments Blood Pressure 138/78 04/05/2024 9:02 AM CDT Pulse 102 04/05/2024 9:02 AM CDT Temperature 36.7 C (98 F) 10/07/2022 8:33 AM ELECTRONIC IMAGING SYSTEM OPERATOR Respiratory Rate 20 10/07/2022 8:33 AM ELECTRONIC IMAGING SYSTEM OPERATOR Oxygen Saturation 97% 10/07/2022 8:33 AM ELECTRONIC IMAGING SYSTEM OPERATOR Inhaled Oxygen Concentration - - Weight 99.3 kg (219 lb) 04/05/2024 9:02 AM CDT Height 181.6 cm (5' 11.5 ) 04/05/2024 9:02 AM CD T Body Mass Index 30.12 04/05/2024 9:02 AM CDT Plan of Treatment Not on file Medical Devices Implanted Type Area Contact Lens Blocker Device Identifier Shelf Expiration Date Model / Serial / Lot Synthes Lcp 12mm [id number] .7mm 7 Hole Collar 08/09 Tubular Plate Bone 241.371 - [id number] Implanted:Qty: 1 on 05/11/2022 by Eric Shin MD at [facility] Synthes I 241.371 / / Synthes 3.5mm 6mm 24mm 2.5mm Self Tap Small Hexagonal Socket Low Profile 204.824 - [id number] Implanted:Qty: 1 on 05/11/2022 by Eric Shin MD at [facility] Synthes I 204.824 / / Synthes 3.5mm 6mm 18mm 2.5mm Self Tap Small Hexagonal Socket Low Profile 204.818 - [id number] Implanted:Qty: 2 on 05/11/2022 by Eric Shin MD at [facility] Synthes I 204.818 / / Synthes 4mm 6mm 18mm Small Hexagonal Socket Cancellous Full Thread Screw 206.018 - [id number] Implanted:Qty: 2 on 05/11/2022 by Eric Shin MD at [facility] Synthes I 206.018 / / Synthes 3.5mm 6mm 16mm 2.5mm Self Tap Small Hexagonal Socket Low Profile 204.816 - [id number] Implanted:Qty: 1 on 05/11/2022 by Eric Shin MD at [facility] Synthes I 204.816 / / Synthes 4mm 5mm 1.35mm 44mm Cannulated Self Tap Self Drill Small 207.644 - [id number] Implanted:Qty: 1 on 05/11/2022 by Eric Shin MD at [facility] Synthes I 207.644 / / Synthes 4mm 5mm 1.35mm 46mm Cannulated Self Tap Self Drill Small 207.646 - [id number] Implanted:Qty: 1 on 05/11/2022 by Eric Shin MD at [facility] Synthes I 207.646 / / Synthes 4mm 6mm 16mm Small Hexagonal Socket Cancellous Full Thread Screw 206.016 - [id number] Implanted:Qty: 1 on 05/11/2022 by Eric Shin MD at [facility] Synthes I 206.016 / / Insurance RISSA COFFEY CIGNA CIGNA IBEW Advance Directives For more information, please contact: [phone] * Full Code (Latest Code Status on File) Date Activated Date Inactivated Comments 05/11/2022 7:04 PM 05/16/2022 8:37 PM * Full Code Date Activated Date Inactivated Comments 05/11/2022 10:26 AM 05/11/2022 7:04 PM Care Teams Supervisor Of Way Relationship Specialty Start Date End Date Chay Fuller DO PCP - General Internal Medicine 05/11/22 Eric Shin MD [address] [place] [id number] Consulting Physician Orthopedic Surgery 05/16/22
--- OUTSIDE RECORDS SUMMARY | 2024-10-01 09:22 | XMS_ITS | Referral Summary ---
Author Organization [facility] Address [address] [place] [address] Care Team Providers Care Software Developer Mid Level Name Role Phone Chay Fuller DO Primary Care Provider +1 [phone] Source Comments [facility],non-owned Affiliates and Associated Physician Practices is amultiple site organization consisting of ambulatory clinics and hospital sitesin [place], [place], [place] and [place]. This disclosure is being madepursuant to the Care Everywhere program and may not contain all information available regarding this patient. Last updated 18.[facility] Allergies No known active allergies Medications * [...] prior to your last dose Care Teams Software Developer Mid Level Relationship Specialty Start Date End Date Chay Fuller DO PCP - General 01/04/22
--- OUTSIDE RECORDS SUMMARY | 2024-10-01 09:22 | XMS_ITS | Patient Health Summary ---
Author Organization [facility] Address [address] [place] [address] Care Team Providers Care Repair Mechanic Name Role Phone Chay Fuller DO Primary Care Provider [phone]- [phone] Note from [facility],non-owned Affiliates and Associated Physician Practices is amultiple site organization consisting of ambulatory clinics and hospital sitesin [place], [place], [place] and [place]. This disclosure is being madepursuant to the Care Everywhere program and may not contain all information available regarding this patient. Last updated 18.[facility] Allergies No known active [...] 29.84 02/21/2023 8:55 AM CDT Procedures * CT LIVER ELASTOGRAPHY(Performed 01/05/2022) Performed for Hemochromatosis, unspecified hemochromatosis type Results * CT LIVER ELASTOGRAPHY (01/05/2022 8:55 AM CDT) Narrative Gavin Shaffer MD - 01/05/2022 8:55 AM CDT Gavin Shaffer MD 01/05/2022 7:38 PM Diagnosis: JUJU RN verified patient has no implanted devices and NPO for prior 3 hours. Procedure explained and consent signed. Date of Exam: 01/05/2022 Liver Stiffness: (LSM, kPa) median: 9.5 IQR (interquartile range): 1.4 IQR/Median% (ideally < 30%): 15 CAP (controlled attenuation parameter): 342 Technical Difficulty: None Ordering Provider: Jennifer Cardenas [...] patients with nonalcoholic fatty liver disease. Gastroenterology 2019;156:5917-0416. Edin MS, Kimi R, Van Ana Laura [...] FIB4 score (Brandenyduke et al. Hepatology Communications 2019;3:0773-8226) or NAFLD Fibrosis score (Loja et al. Clinical Gastroenterology and Hepatology 2019;17:4303-0607. from routine clinical data. 3. Liver stiffness [...] change as additional supporting data becomes available. [email or web address] Gavin Kurtz MD PROCEDURE/ MINOR SURGICAL ORDERABLES Care Teams Repair Mechanic Relationship Specialty Start Date End Date Chay Fuller DO PCP - General 01/04/22
--- OUTSIDE RECORDS SUMMARY | 2024-10-01 09:22 | XMS_ITS | Clinical Summary ---
Author Organization [facility] g[facility] Villanueva Address [address] [place] [address] Care Team Providers Care Jet Handler Name Role Phone Chay Fuller Gil Primary [...] Encounters Date Type Department Care Team Description 08/28/2024 External Device Data STL ABSTRACTION Provider, Abstract 08/27/2024 External Device Data STL ABSTRACTION Provider, Abstract 08/23/2024 9:30 AM OPTICAL MANUFACTURING TECHNICIAN Office Visit [facility] Oncology and Hematology - [place] [address] [place] [address] Marquise Carrillo MD Hereditary hemochromatosis (Primary Dx) 08/23/2024 Orders Only [facility] Oncology and Hematology - [place] [address] [place] [address] Marquise Carrillo MD 08/22/2024 Orders Only [facility] Oncology and Hematology - [place] [address] [place] [id number] Marquise Carrillo MD 08/20/2024 External Device Data [...] on file Legal Sex Male 3:24 PM OPTICAL MANUFACTURING TECHNICIAN Gender Identity Not on file Sexual Orientation Not on file Last Filed Vital Signs Vital Sign Reading Time Taken Comments Blood Pressure 107/71 08/23/2024 9:36 AM OPTICAL MANUFACTURING TECHNICIAN Pulse 74 08/23/2024 9:36 AM OPTICAL MANUFACTURING TECHNICIAN Temperature 36.4 C (97.5 F) 08/23/2024 9:36 AM OPTICAL MANUFACTURING TECHNICIAN Respiratory Rate 16 08/23/2024 9:36 AM OPTICAL MANUFACTURING TECHNICIAN Oxygen Saturation 98% 08/23/2024 9:36 AM OPTICAL MANUFACTURING TECHNICIAN Inhaled Oxygen Concentration - - Weight 90.4 kg (199 lb 6.4 oz) 08/23/2024 9:36 A M OPTICAL MANUFACTURING TECHNICIAN Height 182.9 cm (6') 01/18/2022 10:13 AM CDT Body Mass Index 27.04 01/18/2022 10:13 AM CDT Plan of Treatment Upcoming Encounters Date Type Department Care Team (Late st Contact Info) Description 12/27/2024 11:30 AM CDT Office Visit [facility] Oncology and Hematology - [place] [address] [facility] [address] [place] [address] Marquise Carrillo MD [address] [facility] [address] [place] [address] Health Maintenance Due Date Last Done Comments Pre-Diabetes and Diabetes Screening 1974 DTAP/TDAP/TD VACCINES (1 - Tdap) 1993 HEPATITIS B VACCINES (1 of 3 - 19+ 3-dose series) 03/1994 COLORECTAL SCREENING 10/13/2019 Colorectal Cancer Screening 10/13/2019 FIT-DNA Q 3 years 10/13/2019 FIT/FOBT Q 1 year 10/13/2019 Flex Sig/CT Colonography Q 5 years 10/13/2019 INFLUENZA VACCINE (#1) 2024 Procedures Procedure Name Priority Date/Time Associated Diagnosis Comments IRON LEVEL Routine 08/23/2024 3:07 PM OPTICAL MANUFACTURING TECHNICIAN BASIC METABOLIC PANEL Routine 08/22/2024 4:02 PM OPTICAL MANUFACTURING TECHNICIAN CBC WITH DIFFERENTIAL Routine 08/22/2024 3:43 PM OPTICAL MANUFACTURING TECHNICIAN from Last 3 Months Results * IRON LEVEL (08/23/2024 3:07 PM OPTICAL MANUFACTURING TECHNICIAN) Blood us Marquise Carrillo MD CHEMISTRY ORDERABLES Final Resu lt * BASIC METABOLIC PANEL (08/22/2024 4:02 PM OPTICAL MANUFACTURING TECHNICIAN) Blood us Marquise Carrillo MD CHEMISTRY ORDERABLES Final Resu lt * CBC WITH DIFFERENTIAL (08/22/2024 3:43 PM OPTICAL MANUFACTURING TECHNICIAN) Blood us Marquise Carrillo MD HEMATOLOGY ORDERABLES Final Res ult from Last 3 Months Insurance [facility] OPEN ACCESS HMO Care Teams Jet Handler Relationship Specialty Start Date End Date Chay Fuller DO [address] [address] PCP - General Internal Medicine 10/22/20
== END 2024-10-01 08:49 | disposition home or self-care (01) ==
LOC: ANHIMG 08:49
PROVIDERS: PCP Clinical Nurse Specialist; Visit Provider Clinical Nurse Specialist
DX: R91.1 Solitary pulmonary nodule (principal)
CPT/HCPCS: 71250

== ENCOUNTER 2024-10-18 08:24 | Outpatient (CLI) | payer OTHER, SELFPAY ==
--- OUTSIDE RECORDS SUMMARY | 2024-10-18 08:42 | XMS_ITS | Clinical Summary ---
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
--- OUTSIDE RECORDS SUMMARY | 2024-10-18 08:42 | XMS_ITS | Clinical Summary ---
Author Organization [facility] Address [address] [place] [address] Care Team Providers Care Field Gauger Name Role Phone Chay Fuller DO Primary Care Provider +1 [phone] Source Comments [facility],non-owned Affiliates and Associated Physician Practices is amultiple site organization consisting of ambulatory clinics and hospital sitesin [place], [place], [place] and [place]. This disclosure is being madepursuant to the Care Everywhere program and may not contain all information available regarding this patient. Last updated 18.[facility] Allergies No known active allergies Medications * [...] 1993 SCREENING FOR DIABETES 02/21/2023 COVID-19 VACCINE (1 - 2023-2 5 season) 2024 INFLUENZA VACCINE (#1) 2024 DEPRESSION SCREENING 08/07/2024 PNEUMOCOCCAL VACCINE 50+ (1 of 1 - PCV) 2024 ZOSTER VACCINE (1 of 2) 2024 HIB VACCINE Aged Out No longer eligi ble based on patient's age to complete this topic HPV VACCINE Aged Out No longer eligi ble based on patient's age to complete this topic MENINGOCOCCAL (Group B) VACC INE SHARED DECISION-MAKING Aged Out No longer eligibl e based on patient's age to complete this topic MENINGOCOCCAL GROUPS A/C/Y/W VACCINE Aged Out No longer eligible b ased [...] prior to your last dose Care Teams Field Gauger Relationship Specialty Start Date End Date Chay Fuller DO PCP - General 01/04/22
--- OUTSIDE RECORDS SUMMARY | 2024-10-18 08:42 | XMS_ITS | Referral Summary ---
Author Organization [facility] Address [facility] [place] [address] Care Team Providers Care Non Licensed Nuclear Equipment Operator Name Role Phone Chay Fuller DO Primary Care Provider [phone] Eric Shin MD Unavailable [phone] Encounters Date Type Department Care Team Description 10/16/2024 2:45 PM CDT Office Visit [facility] Surgery [address] [facility] [address] [place] [address] Tk Bagley MD Pulmonary nodule, right (Primary Dx); Solitary pulmonary nodule 10/14/2024 12:37 PM CDT - 10/14/2024 11:59 PM CDT Hospital Encounter [facility] [address] [place] [address] Diagnosis unknown Discharge Disposition: Discharge to home or self care from Last 3 Months Allergies Active Allergy Reactions Criticality Noted Date Comments Other Unknown 04/05/2024 Medications losartan (COZAAR) 100 mg tablet Take 100 mg by mouth daily [address] (PROTONIX) 40 mg EC tablet Take 1 tablet (40 mg total) by mouth every morning 2 Active folic acid (FOLVITE) 1 mg tabletIndicatio ns:Folate Deficiency Take 1 tablet (1 mg total) by mouth daily 30 tablet 2 Active potassium, sodium phosphates (PHOS-NAK) 280-160-250 mg powder in packet Take 1 packet by mouth 3 (three) times a day before meals 20 packet 2 Active Additional Information Patient not taking.Reported on 10/16/2024 amLODIPine (NORVASC) 10 mg tablet Take 1 [...] by mouth daily 14 tablet 2 Active Additional Information Patient not taking.Reported on 10/16/2024 aspirin 325 mg tablet Take 1 tablet (325 mg total) by mouth 2 (two) times a day 60 tablet 2 Active Additional Information Patient not taking.Reported on 10/16/2024 HYDROcodone-sherwin taminophen (NORCO) 5-325 mg per tabletIndicatio ns:Pain Take 1 tablet by mouth every 8 (eight) hours as needed for pain 20 tablet 2 Active Additional Information Patient not taking.Reported on 10/16/2024 atenoloL (TENORMIN) 50 mg tablet Take 1 [...] 90 capsule 3 4 04/05/20 25 Active Additional Information Patient not taking.Reported on 10/16/2024 Active Problems Problem Noted Date Diagnosed Date Pulmonary nodule, right 10/14/2024 Seizure 05/11/2022 Alcohol withdrawal syndrome with complication Hypomagnesemia Hypokalemia Closed fracture of left ankle Social History Tobacco Use Types Packs/Day Years Used Date Smoking Tobacco: Every Day Cigarettes Tobacco Cessation:Ready to Q uit: Yes; Counseling Given: No Social Connection and Isolat ion Panel [NHANES] Answer Date Recorded In a typical week, how many times do you talk on the phone with family, friends, or neighbors? More than three times a week 05/12/2022 How often do you get togethe r with friends or relatives? More than three times a week 05/12/2022 How often do you attend chur ch or orthodoxy services? Never 05/12/2022 Do you belong to any clubs o r organizations such as hinduism groups, unions, fraBetter Bean or athletic groups, or school groups? No 05/12/2022 How often do you attend meet ings of the clubs or organizations you belong to? Never 05/12/2022 Are you , , di vorced, , never , or living with a partner? Living with partner 05/12/2022 AUDIT-C Answer Date Recorded Q1: How often do you have a drink containing alcohol? 4 or more times a week 10/14/2024 Q2: How many drinks containi ng alcohol do you have on a typical day when you are drinking? 3 or 4 Q3: How often do you have si x or more drinks on one occasion? 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 Gender Identity Not on file Sexual Orientation Not on file Last Filed Vital Signs Vital Sign Reading Time Taken Comments Blood Pressure 114/78 10/16/2024 2:39 PM CDT Pulse 89 10/16/2024 2:39 PM CDT Temperature 36.7 C (98 F) 10/16/2024 2:39 PM CDT Respiratory Rate 18 10/16/2024 2:39 PM CDT Oxygen Saturation 100% 10/16/2024 2:39 PM CDT Inhaled Oxygen Concentration - - Weight 92.6 kg (204 lb 3.2 oz) 10/16/2024 2:39 P M CDT Height 181.6 cm (5' 11.5 ) 04/05/2024 9:02 AM CD T Body Mass Index 28.08 04/05/2024 9:02 AM CDT Plan of Treatment Not on file Medical Devices Implanted Type Area Template Reproduction Technician Device Identifier Shelf Expiration Date Model / Serial / Lot Synthes Lcp 12mm [id number] .[id number] 7 Hole Collar 08/09 Tubular Plate Bone 241.371 - [id number] Implanted:Qty: 1 on 05/11/2022 by Eric Shin MD at [facility] Synthes I 241.371 / / Synthes 3.5mm 6mm 24mm 2.5mm Self Tap Small Hexagonal Socket Low Profile 204.824 - [id number] Implanted:Qty: 1 on 05/11/2022 by Eric Shin MD at [facility] Synthes I 204.824 / / Synthes 3.5mm 6mm 18mm 2.5mm Self Tap Small Hexagonal Socket Low Profile 204.818 - [id number] Implanted:Qty: 2 on 05/11/2022 by Eric Shin MD at [facility] Synthes I 204.818 / / Synthes 4mm 6mm 18mm Small Hexagonal Socket Cancellous Full Thread Screw 206.018 - [id number] Implanted:Qty: 2 on 05/11/2022 by Eric Shin MD at [facility] Synthes I 206.018 / / Synthes 3.5mm 6mm 16mm 2.5mm Self Tap Small Hexagonal Socket Low Profile 204.816 - [id number] Implanted:Qty: 1 on 05/11/2022 by Eric Shin MD at [facility] Synthes I 204.816 / / Synthes 4mm 5mm 1.35mm 44mm Cannulated Self Tap Self Drill Small 207.644 - [id number] Implanted:Qty: 1 on 05/11/2022 by Eric Shin MD at [facility] Synthes I 207.644 / / Synthes 4mm 5mm 1.35mm 46mm Cannulated Self Tap Self Drill Small 207.646 - [id number] Implanted:Qty: 1 on 05/11/2022 by Eric Shin MD at [facility] Synthes I 207.646 / / Synthes 4mm 6mm 16mm Small Hexagonal Socket Cancellous Full Thread Screw 206.016 - [id number] Implanted:Qty: 1 on 05/11/2022 by Eric Shin MD at [facility] Synthes I 206.016 / / Procedures Procedure Name Priority Date/Time Associated Diagnosis Comments CT BODY OUTSIDE CONSULT Routine 10/14/2024 12:37 PM CDT Diagnosis unknown from Last 3 Months Results * CT Body Outside Consult (10/14/2024 12:37 PM CDT) Anatomical Region Laterality Modality Body N/A Computed Tomogra phy 10/15/2024 8:13 AM CDT Impressions 10/15/2024 8:13 AM CDT 1. Indeterminant 11 mm right upper lobe pulmonary nodule. Recommend follow up of the Incidental lung nodule with Additional Imaging in [address] with either chest CT or PET/CT. Alternatively, tissue sampling could be considered per Fleischner criteria. 2. Age-indeterminate moderate T4 and mild T3 compression deformities. The findings, conclusions and recommendations within this report do not replace the initial findings, conclusions and recommendations made at the facility where the study was performed based upon the imaging and clinical condition at that time. Comparison with the prior report and clinical history is necessary. The provided images may or may not represent the lower [place] source data set and thus may contain changes that may lower the accuracy of this second-opinion interpretation. Electronically signed by: Mariah Crouch M.D. Narrative 10/15/2024 8:13 AM CDT EXAMINATION: RADIOLOGY CONSULTATION ON OUTSIDE IMAGING STUDY STUDY INITIALLY PERFORMED: 10/01/2024 at [facility]. TYPE OF STUDY: Multiple CT images of the chest without intravenous contrast are provided at the time of this interpretation. CONTRAST ROUTE: No contrast was administered. The protocol was adequate to address the clinical question. The outside final report was available at the time of this second opinion interpretation. TYPE OF CONSULTATION: Consult on outside imaging study with images submitted through Outside Image Sharing Service DATE OF CONSULTATION: 10/15/2024 8:01 AM HISTORY: Pulmonary nodule. COMPARISON: None available. FINDINGS: 11 mm solid right upper lobe pulmonary nodule. There are additional scattered sub-4 mm pulmonary nodules. For reference, there are 3 mm right middle and left lower lobe pulmonary nodules (series 4, image 88 and 95, respectively). No pleural effusion or pneumothorax. The central airways are patent. No thoracic lymphadenopathy. The thyroid gland is unremarkable. Atherosclerotic calcifications involving the thoracic aorta which remains normal in caliber. Heart size is within normal limits. There is coronary artery disease. No pericardial effusion. Imaged portions of the upper abdomen show no acute findings. Inferior and superior endplates compression deformities involving the T4 vertebral body with associated moderate height loss. There is also a mild superior endplate compression deformity involving T3. No suspicious osseous lesions. Procedure Note Mariah Crouch MD - 10/15/2024 EXAMINATION: RADIOLOGY CONSULTATION ON OUTSIDE IMAGING STUDY STUDY INITIALLY PERFORMED: 10/01/2024 at [facility]. TYPE OF STUDY: Multiple CT images of the chest without intravenous contrast are provided at the time of this interpretation. CONTRAST ROUTE: No contrast was administered. The protocol was adequate to address the clinical question. The outside final report was available at the time of this second opinion interpretation. TYPE OF CONSULTATION: Consult on outside imaging study with images submitted through Outside Image Sharing Service DATE OF CONSULTATION: 10/15/2024 8:01 AM HISTORY: Pulmonary nodule. COMPARISON: None available. FINDINGS: 11 mm solid right upper lobe pulmonary nodule. There are additional scattered sub-4 mm pulmonary nodules. For reference, there are 3 mm right middle and left lower lobe pulmonary nodules (series 4, image 88 and 95, respectively). No pleural effusion or pneumothorax. The central airways are patent. No thoracic lymphadenopathy. The thyroid gland is unremarkable. Atherosclerotic calcifications involving the thoracic aorta which remains normal in caliber. Heart size is within normal limits. There is coronary artery disease. No pericardial effusion. Imaged portions of the upper abdomen show no acute findings. Inferior and superior endplates compression deformities involving the T4 vertebral body with associated moderate height loss. There is also a mild superior endplate compression deformity involving T3. No suspicious osseous lesions. IMPRESSION: 1. Indeterminant 11 mm right upper lobe pulmonary nodule. Recommend follow up of the Incidental lung nodule with Additional Imaging in [address] with either chest CT or PET/CT. Alternatively, tissue sampling could be considered per Fleischner criteria. 2. Age-indeterminate moderate T4 and mild T3 compression deformities. The findings, conclusions and recommendations within this report do not replace the initial findings, conclusions and recommendations made at the facility where the study was performed based upon the imaging and clinical condition at that time. Comparison with the prior report and clinical history is necessary. The provided images may or may not represent the lower [place] source data set and thus may contain changes that may lower the accuracy of this second-opinion interpretation. Electronically signed by: Mariah Crouch M.D. Tk Bagley MD IMG CT PROCEDURES Final R esult from Last 3 Months Insurance [facility] Member Subscriber Plan / Payer (Ef fective 2022-Present) Name:Jese Munson Relation to Subscriber:Self Name:Jese Munson Payer ID:[id number] ([facility]) Type:CIGNA HMO/PPO Address: [id number] [place] [id number] C[employer]DANN IBANDREW Member Subscriber Plan / Payer (Ef fective 2021-Present) Name:Jese Munson Relation to Subscriber:Self Name:Arpit Jese Bashir Payer ID:[id number] ([facility]) Type:CIGNA HMO/PPO Address: [id number] [place] [phone] CIG[employer] IBANDREW Member Subscriber Plan / Payer (Ef fective 2024-Present) Name:Jese Munson Relation to Subscriber:Self Name:Arpit Jese Bashir Payer ID:[id number] ([facility]) Type:CIGNA HMO/PPO Address: [id number] [place] [id number] Advance Directives For more information, please contact: [phone] * Full Code (Latest Code Status on File) Date Activated Date Inactivated Comments 05/11/2022 7:04 PM 05/16/2022 8:37 PM * Full Code Date Activated Date Inactivated Comments 05/11/2022 10:26 AM 05/11/2022 7:04 PM Care Teams Non Licensed Nuclear Equipment Operator Relationship Specialty Start Date End Date Chay Fuller DO PCP - General Internal Medicine 05/11/22 Eric Shin MD [address] [place] [address] Consulting Physician Orthopedic Surgery 05/16/22
--- OUTSIDE RECORDS SUMMARY | 2024-10-18 08:42 | XMS_ITS | Clinical Summary ---
Author Organization [facility] Address [address] [place] [address] Care Team Providers Care Consulting Services Project Manager Name Role Phone Chay Fuller DO Primary Care Provider [phone] Eric Shin MD Unavailable [phone] Allergies Active Allergy Reactions Criticality Noted [...] Hypomagnesemia Hypokalemia Closed fracture of left ankle Encounters Date Type Department Care Team Description 10/16/2024 2:45 PM CDT Office Visit [facility] Surgery [address] [facility] [address] [place] [address] Tk Bagley MD Pulmonary nodule, right (Primary Dx); Solitary pulmonary nodule 10/14/2024 12:37 PM CDT - 10/14/2024 11:59 PM CDT Hospital Encounter [facility] [address] [place] [address] Diagnosis unknown Discharge Disposition: Discharge to home or self care from Last 3 Months Surgical History Surgery Date Site/Laterality Comments HERNIA REPAIR FOOT SURGERY Medical History Medical History Date Comments Hypertension Hemochromatosis Anemia Tubular adenoma of colon Hematospermia Lump in armpit Skull fracture (HCC) Anxiety Fatty liver GERD (gastroesophageal reflux disease) Family History Relation Name Status Comments Brother [...] often do you attend chur ch or buddhist services? 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 Gender Identity Not on file Sexual Orientation [...] Depression Screening 1974 Hepatitis C Screening 1974 Prostate Cancer Screening-PSA 1974 DTaP/Tdap/Td Vaccine (1 - Tdap) 1985 Hepatitis B Screening 1992 Regular Well Visit/Exam 18-64 1992 Pneumococcal vaccine <65 (1 of 2 - PCV) 1993 Covid-19 Vaccine (3 - season) 04/07/202412/2020, 10/09/2020 Influenza Vaccine (#1) 2024 06/05/2014, 2012 Zoster Vaccine (1 of 2) 2024 Medical Devices Implanted Type Area Ski Top Trimmer Device Identifier Shelf Expiration Date Model / Serial / Lot Synthes Lcp 12mm [id number] .7mm 7 Hole Collar / Tubular Plate Bone 241.371 - [id number] Implanted:Qty: 1 on 05/11/2022 by Eric Shin MD at [facility] Synthes I 241.371 / / Synthes 3.5mm 6mm 24mm 2.5mm Self Tap Small Hexagonal Socket Low Profile 204.824 - [id number] Implanted:Qty: 1 on 05/11/2022 by Eric Shin MD at [facility] Synthes I 204.824 / / Synthes 3.5mm 6mm 18mm 2.5mm Self Tap Small Hexagonal Socket Low Profile 204.818 - [id number] Implanted:Qty: 2 on 05/11/2022 by Eric Shin MD at [facility] Synthes I 204.818 / / Synthes 4mm 6mm 18mm Small Hexagonal Socket Cancellous Full Thread Screw 206.018 - [id number] Implanted:Qty: 2 on 05/11/2022 by Eric Shin MD at [facility] Synthes I 206.018 / / Synthes 3.5mm 6mm 16mm 2.5mm Self Tap Small Hexagonal Socket Low Profile 204.816 - [id number] Implanted:Qty: 1 on 05/11/2022 by Eric Shin MD at [facility] Synthes I 204.816 / / Synthes 4mm 5mm 1.35mm 44mm Cannulated Self Tap Self Drill Small 207.644 - [id number] Implanted:Qty: 1 on 05/11/2022 by Eric Shin MD at [facility] Synthes I 207.644 / / Synthes 4mm 5mm 1.35mm 46mm Cannulated Self Tap Self Drill Small 207.646 - [id number] Implanted:Qty: 1 on 05/11/2022 by Eric Shin MD at [facility] Synthes I 207.646 / / Synthes 4mm 6mm 16mm Small Hexagonal Socket Cancellous Full Thread Screw 206.016 - [id number] Implanted:Qty: 1 on 05/11/2022 by Eric Shin MD at [facility] Synthes I 206.016 / / [...] images may or may not represent the [place] source data set and thus may contain changes that may lower the accuracy of this second-opinion interpretation. Electronically signed by: Mariah Crouch M.D. Narrative 10/15/2024 8:13 AM CDT EXAMINATION: RADIOLOGY CONSULTATION ON OUTSIDE IMAGING STUDY STUDY INITIALLY PERFORMED: 10/01/2024 at [facility]. TYPE OF STUDY: Multiple CT images of [...] IMAGING STUDY STUDY INITIALLY PERFORMED: 10/01/2024 at [facility]. TYPE OF STUDY: Multiple CT images of [...] images may or may not represent the [place] source data set and thus may contain changes that may lower the accuracy of this second-opinion interpretation. Electronically signed by: Mariah Crouch M.D. Tk Bagley MD IMG CT PROCEDURES Final R esult from Last 3 Months Insurance CIGNA IBEW CIGNA CIGNA IBEW CIGNA IBEW Advance Directives For more information, please contact: [phone] * Full Code (Latest Code Status on File) Date Activated Date Inactivated Comments 05/11/2022 7:04 PM 05/16/2022 8:37 PM * Full Code Date Activated Date Inactivated Comments 05/11/2022 10:26 AM 05/11/2022 7:04 PM Care Teams Consulting Services Project Manager Relationship Specialty Start Date End Date Chay Fuller DO PCP - General Internal Medicine 05/11/22 Eric Shin MD [address] [address] Consulting Physician Orthopedic Surgery 05/16/22
--- OUTSIDE RECORDS SUMMARY | 2024-10-18 08:42 | XMS_ITS | Encounter Summary ---
Author Organization [facility] Address [address] [place] [address] Care Team Providers Care Ruby On Rails Consultant Name Role Phone Chay Fuller DO Primary Care Provider Encounter Details Date Type Department Care Team (Late st Contact Info) Description 10/15/2024 External Device Data ST[place] ABSTRACTION Provider, Abstract NO ADDRESS ON FILE Social History Tobacco Use Types Packs/Day Years Used Date Smoking Tobacco: Former Smokeless Tobacco: Never Comments:using nicotine tabl ets Alcohol Use Standard Drinks/Week Comments Yes 0 (1 standard drink = 0.6 oz pur e alcohol) Sex and Gender Information Value Date Recorded Sex Assigned at Not on file 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 Gender Identity Not on file Sexual Orientation Not on file documented as of this encounter Plan of Treatment Upcoming Encounters Date Type Department Care Team (Late st Contact Info) Description 12/27/2024 11:30 AM CDT Office Visit [facility] Oncology and Hematology - [place] [address] [facility] [address] [place] [address] Marquise Carrillo MD [address] [facility] [address] [place] [address] documented as of this encounter Visit Diagnoses Not on filedocumented in this encounter Care Teams Ruby On Rails Consultant Relationship Specialty Start Date End Date Chay Fuller DO [address] [facility] [address] [place] [address] PCP - General Internal Medicine 10/22/20 documented as of this encounter
--- OUTSIDE RECORDS SUMMARY | 2024-10-18 08:43 | XMS_ITS | Referral Summary ---
Author Organization [facility] Address [address] [place] [address] Care Team Providers Care Culvert Installer Name Role Phone Chay Fuller DO Primary Care Provider [phone] Source Comments [facility],non-owned Affiliates and Associated Physician Practices is amultiple site organization consisting of ambulatory clinics and hospital sitesin [place], [place], [place] and [place]. This disclosure is being madepursuant to the Care Everywhere program and may not contain all information available regarding this patient. Last updated 18.[facility] Allergies No known active allergies Medications * [...] prior to your last dose Care Teams Culvert Installer Relationship Specialty Start Date End Date Chay Fuller DO PCP - General 01/04/22
--- OUTSIDE RECORDS SUMMARY | 2024-10-18 08:43 | XMS_ITS | Clinical Summary ---
Author Organization [facility] Address [address] [place] [address] Care Team Providers Care Sprue Cutting Press Operator Name Role Phone HeidyjakobChay cabrales Gil Primary Care Provider Allergies No known [...] Encounters Date Type Department Care Team Description 10/15/2024 External Device Data STL ABSTRACTION Provider, Abstract 10/15/2024 External Device Data STL ABSTRACTION Provider, Abstract 2024 External Device Data STL ABSTRACTION Provider, Abstract 10/11/2024 External Device Data STL ABSTRACTION Provider, Abstract 10/01/2024 External Device Data STL ABSTRACTION Provider, Abstract 08/28/2024 External Device Data STL ABSTRACTION Provider, Abstract 08/27/2024 External Device Data STL ABSTRACTION Provider, Abstract 08/23/2024 9:30 AM HOSTESS HOST Office Visit [facility] Oncology and Hematology [facility] [address] [place] [address] Marquise Carrillo MD Hereditary hemochromatosis (Primary Dx) 08/23/2024 Orders Only [facility] Oncology and Hematology [facility] [address] [place] [address] Marquise Carrillo MD 08/22/2024 Orders Only [facility] Oncology and Hematology - [place] [address] [place] [address] Marquise Carrillo MD 08/20/2024 External Device Data [...] on file 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 Gender Identity Not on file Sexual Orientation Not on file Last Filed Vital Signs Vital Sign Reading Time Taken Comments Blood Pressure 107/71 08/23/2024 9:36 AM HOSTESS HOST Pulse 74 08/23/2024 9:36 AM HOSTESS HOST Temperature 36.4 C (97.5 F) 08/23/2024 9:36 AM HOSTESS HOST Respiratory Rate 16 08/23/2024 9:36 AM HOSTESS HOST Oxygen Saturation 98% 08/23/2024 9:36 AM HOSTESS HOST Inhaled Oxygen Concentration - - Weight 90.4 kg (199 lb 6.4 oz) 08/23/2024 9:36 A M HOSTESS HOST Height 182.9 cm (6') 01/18/2022 10:13 AM CDT Body Mass Index 27.04 01/18/2022 10:13 AM CDT Plan of Treatment Upcoming Encounters Date Type Department Care Team (Late st Contact Info) Description 12/27/2024 11:30 AM CDT Office Visit [facility] Oncology and Hematology - [place] [address] [place] [address] Marquise Carrillo MD [address] [facility] [address] [place] [address] Health Maintenance Due Date Last Done Comments Pre-Diabetes and Diabetes Screening 1974 DTAP/TDAP/TD VACCINES (1 - Tdap) 1993 HEPATITIS B VACCINES (1 of 3 - 19+ 3-dose series) 03/1994 COLORECTAL SCREENING 10/13/2019 Colorectal Cancer Screening 10/13/2019 FIT-DNA Q 3 years 10/13/2019 FIT/FOBT Q 1 year 10/13/2019 Flex Sig/CT Colonography Q 5 years 10/13/2019 INFLUENZA VACCINE (#1) 2024 ZOSTER VACCINE (1 of 2) 2024 Procedures Procedure Name Priority Date/Time Associated Diagnosis Comments IRON LEVEL Routine 08/23/2024 3:07 PM HOSTESS HOST BASIC METABOLIC PANEL Routine 08/22/2024 4:02 PM HOSTESS HOST CBC WITH DIFFERENTIAL Routine 08/22/2024 3:43 PM HOSTESS HOST from Last 3 Months Results * IRON LEVEL (08/23/2024 3:07 PM HOSTESS HOST) Blood us Marquise Carrillo MD CHEMISTRY ORDERABLES Final Resu lt * BASIC METABOLIC PANEL (08/22/2024 4:02 PM HOSTESS HOST) Blood us Marquise Carrillo MD CHEMISTRY ORDERABLES Final Resu lt * CBC WITH DIFFERENTIAL (08/22/2024 3:43 PM HOSTESS HOST) Blood us Marquise Carrillo MD HEMATOLOGY ORDERABLES Final Res ult from Last 3 Months Insurance [facility] OPEN ACCESS HMO Care Teams Sprue Cutting Press Operator Relationship Specialty Start Date End Date Chay Fuller DO [address] [address] PCP - General Internal Medicine 10/22/20
--- OUTSIDE RECORDS SUMMARY | 2024-10-18 08:43 | XMS_ITS | Patient Health Summary ---
Author Organization [facility] Address [address] [place] [address] Care Team Providers Care Project Intern Name Role Phone Chay Fuller DO Primary Care Provider [phone] Note from [facility],non-owned Affiliates and Associated Physician Practices is amultiple site organization consisting of ambulatory clinics and hospital sitesin [place], [place], [place] and [place]. This disclosure is being madepursuant to the Care Everywhere program and may not contain all information available regarding this patient. Last updated 18.[facility] Allergies No known active allergies [...] 29.84 02/21/2023 8:55 AM CDT Procedures * OK LIVER ELASTOGRAPHY(Performed 01/05/2022) Performed for Hemochromatosis, unspecified hemochromatosis type Results * OK LIVER ELASTOGRAPHY (01/05/2022 8:55 AM CDT) Narrative [...] patients with nonalcoholic fatty liver disease. Gastroenterology 2019;156:4973-4858. Edin MS, Kimi R, Van Ana Laura [...] FIB4 score (Brandenyduke et al. Hepat[employer] 2019;3:9464-0679) or NAFLD Fibrosis score (Loja et al. Clinical Gastroenterology and Hepatology 2019;17:2272-8670. from routine clinical data. 3. Liver stiffness [...] change as additional supporting data becomes available. [email or web address] Gavin Kurtz MD PROCEDURE/ MINOR SURGICAL ORDERABLES Care Teams Project Intern Relationship Specialty Start Date End Date Chay Fuller DO PCP - General 01/04/22
[2024-10-18 09:27] LABS: Alanine Aminotransferase 23 U/L (6-50); Albumin Level 4.6 g/dL (3.5-5.1); Alkaline Phosphatase 68 U/L (38-126); Anion Gap 13 mmol/L (4-12); Aspartate Amino Transferase 33 U/L (17-59); Bilirubin,Total 0.8 mg/dL (0.2-1.3); Blood Urea Nitrogen 11 mg/dL (9-20); Calcium 9.6 mg/dL (8.4-10.2); Carbon Dioxide 23 mmol/L (22-30); Chloride 105 mmol/L (98-107); Estimated Glomerular Filt Rate > 60; Glucose 99 mg/dL (65-110); Magnesium 1.7 mg/dL (1.6-2.3); Potassium 4.3 mmol/L (3.4-5.0); Sodium 141 mmol/L (137-145)
[2024-10-18 09:56] LABS: Prostate Specific Antigen 0.5 ng/mL (< OR = 4.0)
[2024-10-18 14:08] LABS: Folic Acid > 20.0 ng/mL (2.76->20)
== END 2024-10-18 08:25 | disposition home or self-care (01) ==
LOC: ANHLAB 08:25
PROVIDERS: PCP Clinical Nurse Specialist; Visit Provider Internal Medicine
DX: Z12.5 Encounter for screening for malignant neoplasm of prostate (principal); D69.6 Thrombocytopenia, unspecified; D64.9 Anemia, unspecified; E83.42 Hypomagnesemia; K74.60 Unspecified cirrhosis of liver; R56.9 Unspecified convulsions
CPT/HCPCS: 36415; 80053; 82607; 82746; 83735; 84153; G0103

== ENCOUNTER 2024-10-22 11:19 | Outpatient (CLI) | payer OTHER, SELFPAY ==
--- OUTSIDE RECORDS SUMMARY | 2024-10-22 13:00 | XMS_ITS | Referral Summary ---
Author Organization [facility] Address [facility] [place] [address] Care Team Providers Care Auto Damage Insurance Appraiser Name Role Phone Chay Fuller DO Primary Care Provider [phone]- [phone] Eric Shin MD Unavailable [phone] Encounters Date Type Department Care Team Description 10/16/2024 2:45 PM CDT Office Visit [facility] Surgery [address] [place] [address] Tk Bagley MD Pulmonary nodule, right (Primary Dx); Solitary pulmonary nodule 10/14/2024 12:37 PM CDT - 10/14/2024 11:59 PM CDT Hospital Encounter [facility] [address] [place] [address] Diagnosis unknown Discharge Disposition: Discharge to [...] often do you attend chur ch or caodaism services? Never 05/12/2022 Do you belong to any clubs o r organizations such as taoist groups, unions, fraTelera or athletic groups, or school groups? 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 Gender Identity Not on file Sexual Orientation [...] on file Medical Devices Implanted Type Area Ruling Technician Device Identifier Shelf Expiration Date Model / Serial / Lot Synthes Lcp 12mm [id number] .7mm 7 Hole Collar 08/09 Tubular Plate Bone 241.371 - [id number] Implanted:Qty: 1 on 05/11/2022 by Eric Shin MD at [facility] Synthes I 241.371 / / Synthes 3.5mm 6mm 24mm 2.5mm Self Tap Small Hexagonal Socket Low Profile 204.824 - [id number] Implanted:Qty: 1 on 05/11/2022 by Eric Shin MD at [facility] Synthes I 204.824 / / Synthes 3.5mm 6mm 18mm 2.5mm Self Tap Small Hexagonal Socket Low Profile 204.818 - [id number] Implanted:Qty: 2 on 05/11/2022 by Eric Shin MD at [facility] Synthes I 204.818 / / Synthes 4mm 6mm 18mm Small Hexagonal Socket Cancellous Full Thread Screw 206.018 - [id number] Implanted:Qty: 2 on 05/11/2022 by Eric Shin MD at [facility] Synthes I 206.018 / / Synthes 3.5mm 6mm 16mm 2.5mm Self Tap Small Hexagonal Socket Low Profile 204.816 - [id number] Implanted:Qty: 1 on 05/11/2022 by Eric Shin MD at [facility] Synthes I 204.816 / / Synthes 4mm 5mm 1.35mm 44mm Cannulated Self Tap Self Drill Small 207.644 - [id number] Implanted:Qty: 1 on 05/11/2022 by Eric Shin MD at [facility] Synthes I 207.644 / / Synthes 4mm 5mm 1.35mm 46mm Cannulated Self Tap Self Drill Small 207.646 - [id number] Implanted:Qty: 1 on 05/11/2022 by Eric Shin MD at [facility] Synthes I 207.646 / / Synthes 4mm 6mm 16mm Small Hexagonal Socket Cancellous Full Thread Screw 206.016 - [id number] Implanted:Qty: 1 on 05/11/2022 by Eric Shin [...] images may or may not represent the [place] source data set and thus may contain changes that may lower the accuracy of this second-opinion interpretation. Electronically signed by: Mariah Crouch M.D. Narrative 10/15/2024 8:13 AM CDT EXAMINATION: RADIOLOGY CONSULTATION ON OUTSIDE IMAGING STUDY STUDY INITIALLY PERFORMED: 10/01/2024 at [facility][note 3]. TYPE OF STUDY: Multiple CT images of [...] IMAGING STUDY STUDY INITIALLY PERFORMED: 10/01/2024 at [facility][note 3]. TYPE OF STUDY: Multiple CT images of [...] images may or may not represent the [place] source data set and thus may contain changes that may lower the accuracy of this second-opinion interpretation. Electronically signed by: Mariah Crouch M.D. Tk Bagley MD IMG CT PROCEDURES Final R esult from Last 3 Months Insurance [facility] CIGDANN IBANDREW CIGNA IBANDREW Advance Directives For more information, please contact: [phone] * Full Code (Latest Code Status on File) Date Activated Date Inactivated Comments 05/11/2022 7:04 PM 05/16/2022 8:37 PM * Full Code Date Activated Date Inactivated Comments 05/11/2022 10:26 AM 05/11/2022 7:04 PM Care Teams Auto Damage Insurance Appraiser Relationship Specialty Start Date End Date Chay Fuller DO PCP - General Internal Medicine 05/11/22 Eric Shin MD [address] [place] [address] Consulting Physician Orthopedic Surgery 05/16/22
--- OUTSIDE RECORDS SUMMARY | 2024-10-22 13:00 | XMS_ITS | Clinical Summary ---
Author Organization [facility] Address [address] [place] [address] Care Team Providers Care Technical Business Analyst Name Role Phone Chay Fuller DO Primary Care Provider [phone] Eric Shin MD Unavailable [phone] Allergies Active Allergy Reactions Criticality Noted [...] 10/16/2024 2:45 PM CDT Office Visit [facility] Surgery [address] [place] [address] Tk Bagley MD Pulmonary nodule, right (Primary Dx); Solitary pulmonary nodule 10/14/2024 12:37 PM CDT - 10/14/2024 11:59 PM CDT Hospital Encounter [facility] [address] [place] [address] Diagnosis unknown Discharge Disposition: Discharge to home [...] often do you attend chur ch or holiness services? 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 Gender Identity Not on file Sexual [...] 2) 2024 Medical Devices Implanted Type Area Stadium Manager Device Identifier Shelf Expiration Date Model / Serial / Lot Synthes Lcp 12mm [id number] .7mm 7 Hole Collar / Tubular Plate Bone 241.371 - [id number] Implanted:Qty: 1 on 05/11/2022 by Eric Shin MD at [facility] Synthes I 241.371 / / Synthes 3.5mm 6mm 24mm 2.5mm Self Tap Small Hexagonal Socket Low Profile 204.824 - [id number] Implanted:Qty: 1 on 05/11/2022 by Eric Shin MD at [facility] Synthes I 204.824 / / Synthes 3.5mm 6mm 18mm 2.5mm Self Tap Small Hexagonal Socket Low Profile 204.818 - [id number] Implanted:Qty: 2 on 05/11/2022 by Eric Shin MD at [facility] Synthes I 204.818 / / Synthes 4mm 6mm 18mm Small Hexagonal Socket Cancellous Full Thread Screw 206.018 - [id number] Implanted:Qty: 2 on 05/11/2022 by Eric Shin MD at [facility] Synthes I 206.018 / / Synthes 3.5mm 6mm 16mm 2.5mm Self Tap Small Hexagonal Socket Low Profile 204.816 - [id number] Implanted:Qty: 1 on 05/11/2022 by Eric Shin MD at [facility] Synthes I 204.816 / / Synthes 4mm 5mm 1.35mm 44mm Cannulated Self Tap Self Drill Small 207.644 - [id number] Implanted:Qty: 1 on 05/11/2022 by Erci Shin MD at [facility] Synthes I 207.644 / / Synthes 4mm 5mm 1.35mm 46mm Cannulated Self Tap Self Drill Small 207.646 - [id number] Implanted:Qty: 1 on 05/11/2022 by Eric Shin MD at [facility] Synthes I 207.646 / / Synthes 4mm 6mm 16mm Small Hexagonal Socket Cancellous Full Thread Screw 206.016 - [id number] Implanted:Qty: 1 on 05/11/2022 by Eric Shin MD at [facility] Synthes I 206.016 / / Procedures Procedure [...] images may or may not represent the [place] source data set and thus may contain changes that may lower the accuracy of this second-opinion interpretation. Electronically signed by: Mariah Crouch M.D. Narrative 10/15/2024 8:13 AM CDT EXAMINATION: RADIOLOGY CONSULTATION ON OUTSIDE IMAGING STUDY STUDY INITIALLY PERFORMED: 10/01/2024 at [facility]. TYPE OF STUDY: Multiple CT images of [...] IMAGING STUDY STUDY INITIALLY PERFORMED: 10/01/2024 at [facility]. TYPE OF STUDY: Multiple CT images of [...] images may or may not represent the [place] source data set and thus may contain changes that may lower the accuracy of this second-opinion interpretation. Electronically signed by: Mariah Crouch M.D. Tk Bagley MD IMG CT PROCEDURES Final R esult from Last 3 Months Insurance CIGNA IBEW CIGNA CIGNA IBEW CIGNA IBEW Advance Directives For more information, please contact: [phone] * Full Code (Latest Code Status on File) Date Activated Date Inactivated Comments 05/11/2022 7:04 PM 05/16/2022 8:37 PM * Full Code Date Activated Date Inactivated Comments 05/11/2022 10:26 AM 05/11/2022 7:04 PM Care Teams Technical Business Analyst Relationship Specialty Start Date End Date Chay Fuller DO PCP - General Internal Medicine 05/11/22 Eric Shin MD [address] [place] [address] Consulting Physician Orthopedic Surgery 05/16/22
--- OUTSIDE RECORDS SUMMARY | 2024-10-22 13:00 | XMS_ITS | Clinical Summary ---
Author Organization [facility] Address [address] [place] [address] Care Team Providers Care Development Officer Name Role Phone None, Provider Primary Care Provider Unavaila ble Social History Tobacco Use Types Packs/Day Years Used Date Smoking Tobacco: Never Assessed Sex and Gender Information Value Date Recorded Sex Assigned at Not on file Legal Sex Male 10:22 PM PRIVATE EYE Gender Identity Not on file Sexual Orientation Not on file Plan of Treatment Health Maintenance Due Date Last Done Comments Colorectal Cancer Screening Colonoscopy (10 Years) 1974 Annual Physical 1977 Hepatitis C 1992 DTaP, Tdap and Td Vaccines ( 1 - Tdap) 1993 Hepatitis B Vaccines (1 of 3 - 19+ 3-dose series) 1993 COVID-19 Vaccine ( - 2023-2 5 season) 2024 Influenza Adult (#1) 2024 Zoster Vaccines (1 of 2) 2024 Meningococcal B Vaccine Aged Out No [...] age to complete this topic Care Teams Development Officer Relationship Specialty Start Date End Date None, ProviderMD PCP - General 05/09/19
--- OUTSIDE RECORDS SUMMARY | 2024-10-22 13:00 | XMS_ITS | Clinical Summary ---
Author Organization [facility] [employer] [facility] Address [address] [place] [address] Care Team Providers Care Baggage Security Checker Name Role Phone HeidyjakobChay cabrales Gil Primary [...] STL ABSTRACTION Provider, Abstract 08/23/2024 9:30 AM TENTERING MACHINE OFF BEARER Office Visit [facility] [address] [place] [address] Marquise Carrillo MD Hereditary hemochromatosis (Primary Dx) 08/23/2024 Orders Only [facility] [address] [place] [address] Marquise Carrillo MD 08/22/2024 Orders Only [facility] [place] [address] [place] [address] Marquise Carrillo MD 08/20/2024 External [...] on file Legal Sex Male 3:24 PM TENTERING MACHINE OFF BEARER Gender Identity Not on file Sexual Orientation Not on file Last Filed Vital Signs Vital Sign Reading Time Taken Comments Blood Pressure 107/71 08/23/2024 9:36 AM TENTERING MACHINE OFF BEARER Pulse 74 08/23/2024 9:36 AM TENTERING MACHINE OFF BEARER Temperature 36.4 C (97.5 F) 08/23/2024 9:36 AM TENTERING MACHINE OFF BEARER Respiratory Rate 16 08/23/2024 9:36 AM TENTERING MACHINE OFF BEARER Oxygen Saturation 98% 08/23/2024 9:36 AM TENTERING MACHINE OFF BEARER Inhaled Oxygen Concentration - - Weight 90.4 kg (199 lb 6.4 oz) 08/23/2024 9:36 A M TENTERING MACHINE OFF BEARER Height 182.9 cm (6') 01/18/2022 10:13 AM CDT Body Mass Index 27.04 01/18/2022 10:13 AM CDT Plan of Treatment Upcoming Encounters Date Type Department Care Team (Late st Contact Info) Description 12/27/2024 11:30 AM CDT Office Visit [facility] [place] [address] [place] [address] Marquise Carrillo MD [address] [facility] [address] Journal[address] [place] [address] Health Maintenance Due Date Last [...] Comments IRON LEVEL Routine 08/23/2024 3:07 PM TENTERING MACHINE OFF BEARER BASIC METABOLIC PANEL Routine 08/22/2024 4:02 PM TENTERING MACHINE OFF BEARER CBC WITH DIFFERENTIAL Routine 08/22/2024 3:43 PM TENTERING MACHINE OFF BEARER from Last 3 Months Results * IRON LEVEL (08/23/2024 3:07 PM TENTERING MACHINE OFF BEARER) Blood us Marquise Carrillo MD CHEMISTRY ORDERABLES Final Resu lt * BASIC METABOLIC PANEL (08/22/2024 4:02 PM TENTERING MACHINE OFF BEARER) Blood us Marquise Carrillo MD CHEMISTRY ORDERABLES Final Resu lt * CBC WITH DIFFERENTIAL (08/22/2024 3:43 PM TENTERING MACHINE OFF BEARER) Blood us Marquise Carrillo MD HEMATOLOGY ORDERABLES Final Res ult from Last 3 Months Insurance [facility] OPEN ACCESS HMO Care Teams Baggage Security Checker Relationship Specialty Start Date End Date Chay Fuller DO [address] [address] PCP - General Internal Medicine 10/22/20
--- OUTSIDE RECORDS SUMMARY | 2024-10-22 13:00 | XMS_ITS | Clinical Summary ---
Author Organization [facility] [employer] Address [address] [place] [address] Care Team Providers Care Feed Mill Operator Name Role Phone Chay Fuller DO Primary Care Provider [phone] [phone] [facility] [employer],non-owned Affiliates and Associated Physician Practices is amultiple site organization consisting of ambulatory clinics and hospital sitesin [place], [place], [place] and [place]. This disclosure is being madepursuant to the Care Everywhere program and may not contain all information available regarding this patient. Last updated 18.[facility] [employer] Allergies No known active allergies Medications * [...] prior to your last dose Care Teams Feed Mill Operator Relationship Specialty Start Date End Date Chay Fuller DO PCP - General 01/04/22
[2024-10-22 13:38] LABS: Creatine Kinase 116 U/L (55-170); Lactate Dehydrogenase 160 U/L (120-246)
[2024-10-22 13:56] LABS: Free T3 4.23 pg/mL (2.71-6.16); Free T4 Free Thyroxine 1.06 ng/dL (0.78-2.19)
[2024-10-22 14:02] LABS: Thyroid Stimulating Hormone 0.882 uIU/mL (0.465-4.680)
[2024-10-22 14:04] LABS: Erythrocyte Sedimentation Rate 27 mm/hr (0-20)
[2024-10-23 06:54] LABS: CRP, High Sensitivity 1.7 mg/L
[2024-10-23 13:38] LABS: Aldolase 4.3 U/L (< OR = 8.1)
== END 2024-10-22 11:20 | disposition home or self-care (01) ==
LOC: ANHGOSHLAB 11:21
PROVIDERS: PCP Internal Medicine; Visit Provider Internal Medicine
DX: M62.81 Muscle weakness (generalized) (principal)
CPT/HCPCS: 36415; 82085; 82550; 83615; 84439; 84443; 84481; 85652; 86141

== ENCOUNTER 2024-12-26 09:47 | Outpatient (CLI) | payer OTHER, SELFPAY ==
--- OUTSIDE RECORDS SUMMARY | 2024-12-26 09:51 | XMS_ITS | Referral Summary ---
Author Organization [facility] Address [address] [place] [address] Care Team Providers Care Attendant Arcade Name Role Phone Chay Fuller DO Primary Care Provider [phone] Eric Shin MD Unavailable [phone] Encounters Date Type Department Care Team Description 12/18/2024 11:40 AM CDT - 12/18/2024 11:59 PM CDT Hospital Encounter [facility] - [place] [address] [facility] Floor 8 [place] [address] Solitary pulmonary nodule Discharge Disposition: Discharge to home or self care 12/18/2024 2:00 PM CDT Office Visit [facility] [address] [place] [address] Floor 5 [place] [address] Lavinia Rizvi NP Pulmonary nodules (Primary Dx) 10/16/2024 2:45 PM CDT Office Visit [facility] 5 [place] [address] Tk Bagley MD Pulmonary nodule, right (Primary Dx); Solitary pulmonary nodule 10/14/2024 12:37 PM CDT - 10/14/2024 11:59 PM CDT Hospital Encounter [facility] [address] [place] [address] Diagnosis unknown Discharge Disposition: Discharge to [...] How often do you attend chur or episcopalian services? Never 05/12/2022 Do you belong to [...] when you are drinking? 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 Gender Identity Not on file Sexual Orientation Not on file Last Filed Vital Signs Vital Sign Reading Time Taken Comments Blood Pressure 111/69 12/18/2024 2:07 PM CDT Pulse 80 12/18/2024 2:07 PM CDT Temperature 36.7 C (98.1 F) 12/18/2024 2:07 PM CDT Respiratory Rate 18 12/18/2024 2:07 PM CDT Oxygen Saturation 97% 12/18/2024 2:07 PM CDT Inhaled Oxygen Concentration - - Weight 94.7 kg (208 lb 12.8 oz) 12/18/2024 2:07 PM CDT Height 181.6 cm (5' 11.5 ) 04/05/2024 9:02 AM CD T Body Mass Index 28.72 04/05/2024 9:02 AM CDT Plan of Treatment Not on file Medical Devices Implanted Type Area Trimming Cutter Machine Device Identifier Shelf Expiration Date Model / Serial / Lot Synthes Lcp 12mm [id number] .7mm 7 Hole Collar 1/3 Tubular Plate Bone 241.371 - [id number] Implanted:Qty: 1 on 05/11/2022 by Eric Shin MD at [facility] Synthes I 241.371 / / Synthes 3.5mm 6mm 24mm 2.5mm Self Tap Small Hexagonal Socket Low Profile 204.824 - [id number] Implanted:Qty: 1 on 05/11/2022 by Eric Shin MD at [facility] Synthes I 204.824 / / Synthes 3.5mm 6mm 18mm 2.5mm Self Tap Small Hexagonal Socket Low Profile 204.818 - [id number] Implanted:Qty: 2 on 05/11/2022 by Eric Shin MD at [facility] Synthes I 204.818 / / Synthes 4mm 6mm 18mm Small Hexagonal Socket Cancellous Full Thread Screw 206.018 - [id number] Implanted:Qty: 2 on 05/11/2022 by Eric Shin MD at [facility] Synthes I 206.018 / / Synthes 3.5mm 6mm 16mm 2.5mm Self Tap Small Hexagonal Socket Low Profile 204.816 - [id number] Implanted:Qty: 1 on 05/11/2022 by Eric Shin MD at [facility] Synthes I 204.816 / / Synthes 4mm 5mm 1.35mm 44mm Cannulated Self Tap Self Drill Small 207.644 - [id number] Implanted:Qty: 1 on 05/11/2022 by Eric Shin MD at [facility] Synthes I 207.644 / / Synthes 4mm 5mm 1.35mm 46mm Cannulated Self Tap Self Drill Small 207.646 - [id number] Implanted:Qty: 1 on 05/11/2022 by Eric Shin MD at [facility] Synthes I 207.646 / / Synthes 4mm 6mm 16mm Small Hexagonal Socket Cancellous Full Thread Screw 206.016 - [id number] Implanted:Qty: 1 on 05/11/2022 by Eric Shin MD at [facility] Synthes I 206.016 / / Procedures Procedure Name Priority Date/Time Associated Diagnosis Comments CT CHEST WO CONTRAST Schedule Routine, Read Routine (OP Routine) 12/18/2024 11:55 AM CDT Solitary pulmonary nodule CT BODY OUTSIDE CONSULT Routine 10/14/2024 12:37 PM CDT Diagnosis unknown from Last 3 Months Results * CT Chest WO Contrast (12/18/2024 11:55 AM CDT) Anatomical Region Laterality Modality Body N/A Computed Tomogra phy 12/18/2024 12:1 9 PM CDT Impressions 12/18/2024 12:19 PM CDT 1. Dominant right upper lobe pulmonary nodule unchanged in size with increased satellite nodularity with alie-bronchovascular distribution. Findings are nonspecific although may be suggestive of pulmonary granulomatous disease such as sarcoidosis. Consider follow-up CT in 3-6 months. 2. No new pulmonary nodule. No thoracic lymphadenopathy with unchanged subcentimeter mediastinal lymph nodes. Electronically signed by: Alirio Coburn M.D. Narrative 12/18/2024 12:19 PM CDT EXAMINATION: Computed tomography of the chest without intravenous contrast HISTORY: Pulmonary nodule follow-up TECHNIQUE: Transaxial computed tomographic images of the chest were obtained without intravenous contrast according to the standard protocol. COMPARISON: CT chest 10/01/2024 FINDINGS: Central airways are clear. Mucous plugging leading to the previously noted right upper lobe pulmonary nodule. There are minimally increased solid components/conspicuity from prior examination, now measuring 7 x 10 mm, previously 8 x 9 mm (series 3, image 69). Increased satellite nodularity with subcentimeter peribronchovascular/perilymphatic distribution extending to the pleura (series 3, images 67-71). Unchanged heterogeneous 4 mm nodule within the right lung base (series 3, image 128). Left basilar pulmonary nodule measuring 3 mm is unchanged (series 3, image 132). There are additional scattered less than 3 mm pulmonary nodules throughout the lungs which are overall unchanged and of doubtful clinical significance. No new suspicious pulmonary nodule. No focal consolidation. No pleural effusion or pneumothorax. Heart size is normal with trace pericardial effusion, likely physiologic. Multivessel coronary artery atherosclerotic calcifications. Thoracic aorta is normal in size and configuration. No thoracic lymphadenopathy with unchanged subcentimeter mediastinal lymph nodes. Merna are incompletely assessed without intravenous contrast. Thyroid is normal. Visualized esophagus is normal with a tiny hiatal hernia. Incompletely visualized layering gallbladder fundal stones. Unchanged T4 and T5 vertebral body compression fracture deformities. Multilevel spine degenerative changes. Procedure Note Alirio Coburn II, MD - 12/18/2024 EXAMINATION: Computed tomography of the chest without intravenous contrast HISTORY: Pulmonary nodule follow-up TECHNIQUE: Transaxial computed tomographic images of the chest were obtained without intravenous contrast according to the standard protocol. COMPARISON: CT chest 10/01/2024 FINDINGS: Central airways are clear. Mucous plugging leading to the previously noted right upper lobe pulmonary nodule. There are minimally increased solid components/conspicuity from prior examination, now measuring 7 x 10 mm, previously 8 x 9 mm (series 3, image 69). Increased satellite nodularity with subcentimeter peribronchovascular/perilymphatic distribution extending to the pleura (series 3, images 67-71). Unchanged heterogeneous 4 mm nodule within the right lung base (series 3, image 128). Left basilar pulmonary nodule measuring 3 mm is unchanged (series 3, image 132). There are additional scattered less than 3 mm pulmonary nodules throughout the lungs which are overall unchanged and of doubtful clinical significance. No new suspicious pulmonary nodule. No focal consolidation. No pleural effusion or pneumothorax. Heart size is normal with trace pericardial effusion, likely physiologic. Multivessel coronary artery atherosclerotic calcifications. Thoracic aorta is normal in size and configuration. No thoracic lymphadenopathy with unchanged subcentimeter mediastinal lymph nodes. Merna are incompletely assessed without intravenous contrast. Thyroid is normal. Visualized esophagus is normal with a tiny hiatal hernia. Incompletely visualized layering gallbladder fundal stones. Unchanged T4 and T5 vertebral body compression fracture deformities. Multilevel spine degenerative changes. IMPRESSION: 1. Dominant right upper lobe pulmonary nodule unchanged in size with increased satellite nodularity with alie-bronchovascular distribution. Findings are nonspecific although may be suggestive of pulmonary granulomatous disease such as sarcoidosis. Consider follow-up CT in 3-6 months. 2. No new pulmonary nodule. No thoracic lymphadenopathy with unchanged subcentimeter mediastinal lymph nodes. Electronically signed by: Alirio Coburn M.D. Tk Bagley MD IMG CT PROCEDURES Final R esult * CT Body Outside Consult (10/14/2024 12:37 [...] images may or may not represent the [place] source data set and thus may contain changes that may lower the accuracy of this second-opinion interpretation. Electronically signed by: Mariah Crouch M.D. Narrative 10/15/2024 8:13 AM CDT EXAMINATION: RADIOLOGY CONSULTATION ON OUTSIDE IMAGING STUDY STUDY INITIALLY PERFORMED: 10/01/2024 at [facility]. TYPE OF STUDY: Multiple CT images of [...] IMAGING STUDY STUDY INITIALLY PERFORMED: 10/01/2024 at [facility]. TYPE OF STUDY: Multiple CT images of [...] images may or may not represent the [place] source data set and thus may contain changes that may lower the accuracy of this second-opinion interpretation. Electronically signed by: Mariah Crouch M.D. Tk Bagley MD IMG CT PROCEDURES Final R esult from Last 3 Months Insurance [facility] CIGNA CIGNA IBEW CIGNA IBEW Advance Directives For more information, please contact: [phone] * Full Code (Latest Code Status on File) Date Activated Date Inactivated Comments 05/11/2022 7:04 PM 05/16/2022 8:37 PM * Full Code Date Activated Date Inactivated Comments 05/11/2022 10:26 AM 05/11/2022 7:04 PM Care Teams Attendant Arcade Relationship Specialty Start Date End Date Chay Fuller DO PCP - General Internal Medicine 05/11/22 Eric Shin MD [address] [facility] [facility] [address] [place] [address] [place] [id number] Consulting Physician Orthopedic Surgery 05/16/22
--- OUTSIDE RECORDS SUMMARY | 2024-12-26 09:51 | XMS_ITS | Encounter Summary ---
Author Organization [facility] Address 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 AIR Gender Identity Not on file Sexual Orientation Not on file documented as of this encounter Plan of Treatment Upcoming Encounters Date Type Department Care Team (Late st Contact Info) Description 12/27/2024 11:30 AM CDT Office Visit [facility] Oncology and Hematology - [place] [address] [facility] [address] [place] [address] Marquise Carrillo MD [address] [facility] [address] [place] [address] documented as of this encounter Visit Diagnoses Not on filedocumented in this encounter Care Teams Company Marker Relationship Specialty Start Date End Date Chay Fuller DO [address] [facility] [address] [place] [address] PCP - General Internal Medicine 10/22/20 documented as of this encounter
--- OUTSIDE RECORDS SUMMARY | 2024-12-26 09:51 | XMS_ITS | Clinical Summary ---
Author Organization [facility] Address [address] [place] [address] Care Team Providers Care Stem Roller Operator Name Role Phone Chay Fuller DO Primary Care Provider [phone]- [phone] Eric Shin MD Unavailable Allergies Active Allergy [...] Date Type Department Care Team Description 12/18/2024 2:00 PM CDT Office Visit [facility] Surgery [address] [facility] Floor 5 [place] [address] Lavinia Rizvi, JOURNEYMAN TOOL AND DIE MAKER Pulmonary nodules (Primary Dx) 12/18/2024 11:40 AM CDT - 12/18/2024 11:59 PM CDT Hospital Encounter [facility] - [place] [address] [facility] Floor 8 [place] [address] Solitary pulmonary nodule Discharge Disposition: Discharge to home or self care 10/16/2024 2:45 PM CDT Office Visit [facility] Surgery [address] [facility] Floor 5 [place] [address] Tk Bagley MD Pulmonary nodule, right (Primary Dx); Solitary pulmonary nodule 10/14/2024 12:37 PM CDT - 10/14/2024 11:59 PM CDT Hospital Encounter [facility]) [facility] [place] [address] Diagnosis unknown Discharge Disposition: Discharge to home [...] often do you attend chur ch or anabaptism services? Never 05/12/2022 Do you belong to any clubs o r organizations such as restoration groups, unions, fraternal or athletic groups, or [...] on file Legal Sex Male 3:16 AM CLERICAL OFFICE Gender Identity Not on file Sexual Orientation [...] Covid-19 Vaccine (3 - season) 04/07/202412/2020, 10/09/2020 Zoster Vaccine (1 of 2) 2024 Influenza Vaccine (Season Ended) 2025 06/05/20 14, 08/15/2012 Medical Devices Implanted Type Area Athletic Events Scorer Device Identifier Shelf Expiration Date Model / Serial / Lot Synthes Lcp 12mm [id number] .7mm 7 Hole Collar 08/09 Tubular Plate Bone 241.371 - [id number] Implanted:Qty: 1 on 05/11/2022 by Eric Shin MD at [facility] Synthes I 241.371 / / Synthes 3.5mm 6mm 24mm 2.5mm Self Tap Small Hexagonal Socket Low Profile 204.824 - [id number] Implanted:Qty: 1 on 05/11/2022 by Eric Shin MD at [facility] Synthes I 204.824 / / Synthes 3.5mm 6mm 18mm 2.5mm Self Tap Small Hexagonal Socket Low Profile 204.818 - [id number] Implanted:Qty: 2 on 05/11/2022 by Eric Shin MD at [facility] Synthes I 204.818 / / Synthes 4mm 6mm 18mm Small Hexagonal Socket Cancellous Full Thread Screw 206.018 - [id number] Implanted:Qty: 2 on 05/11/2022 by Eric Shin MD at [facility] Synthes I 206.018 / / Synthes 3.5mm 6mm 16mm 2.5mm Self Tap Small Hexagonal Socket Low Profile 204.816 - [id number] Implanted:Qty: 1 on 05/11/2022 by Eric Shin MD at [facility] Synthes I 204.816 / / Synthes 4mm 5mm 1.35mm 44mm Cannulated Self Tap Self Drill Small 207.644 - [id number] Implanted:Qty: 1 on 05/11/2022 by Eric Shin MD at [facility] Synthes I 207.644 / / Synthes 4mm 5mm 1.35mm 46mm Cannulated Self Tap Self Drill Small 207.646 - [id number] Implanted:Qty: 1 on 05/11/2022 by Eric Shin MD at [facility] Synthes I 207.646 / / Synthes 4mm 6mm 16mm Small Hexagonal Socket Cancellous Full Thread Screw 206.016 - [id number] Implanted:Qty: 1 on 05/11/2022 by Eric Shin MD at [facility] Synthes I 206.016 / / Procedures [...] nodes. Electronically signed by: Alirio Coburn M.D. us Tk Bagley MD IMG CT PROCEDURES Final [...] images may or may not represent the [place] source data set and thus may contain changes that may lower the accuracy of this second-opinion interpretation. Electronically signed by: Mariah Crouch M.D. Narrative 10/15/2024 8:13 AM CDT EXAMINATION: RADIOLOGY CONSULTATION ON OUTSIDE IMAGING STUDY STUDY INITIALLY PERFORMED: 10/01/2024 at [facility]. TYPE OF STUDY: Multiple CT images of [...] IMAGING STUDY STUDY INITIALLY PERFORMED: 10/01/2024 at [facility]. TYPE OF STUDY: Multiple CT images of [...] images may or may not represent the [place] source data set and thus may contain changes that may lower the accuracy of this second-opinion interpretation. Electronically signed by: Mariah Crouch M.D. Tk Bagley MD IMG CT PROCEDURES Final R esult from Last 3 Months Insurance CIGNA IBEW [place] [address] [place] [address] Advance Directives For more information, please contact: [phone] * Full Code (Latest Code Status on File) Date Activated Date Inactivated Comments 05/11/2022 7:04 PM 05/16/2022 8:37 PM * Full Code Date Activated Date Inactivated Comments 05/11/2022 10:26 AM 05/11/2022 7:04 PM Care Teams Stem Roller Operator Relationship Specialty Start Date End Date Chay Fuller DO PCP - General Internal Medicine 05/11/22 Eric Shin MD [address] [facility] [place] [address] Consulting Physician Orthopedic Surgery 05/16/22
--- OUTSIDE RECORDS SUMMARY | 2024-12-26 09:51 | XMS_ITS | Clinical Summary ---
[facility] Address [address] [place] [address] Care Team Providers Care Professor Of Finance Name Role Phone HeidyjakobChay cabrales Gil Primary [...] Encounters Date Type Department Care Team Description 12/24/2024 External Device Data STL ABSTRACTION Provider, Abstract 11/19/2024 External Device Data STL ABSTRACTION Provider, Abstract [...] on file Legal Sex Male 3:24 PM CONFIGURATION TECHNICIAN Gender Identity Not on file Sexual Orientation Not on file Last Filed Vital Signs Vital Sign Reading Time Taken Comments Blood Pressure 107/71 08/23/2024 9:36 AM CONFIGURATION TECHNICIAN Pulse 74 08/23/2024 9:36 AM CONFIGURATION TECHNICIAN Temperature 36.4 C (97.5 F) 08/23/2024 9:36 AM CONFIGURATION TECHNICIAN Respiratory Rate 16 08/23/2024 9:36 AM CONFIGURATION TECHNICIAN Oxygen Saturation 98% 08/23/2024 9:36 AM CONFIGURATION TECHNICIAN Inhaled Oxygen Concentration - - Weight 90.4 kg (199 lb 6.4 oz) 08/23/2024 9:36 A M CONFIGURATION TECHNICIAN Height 182.9 cm (6') 01/18/2022 10:13 AM CDT Body Mass Index 27.04 01/18/2022 10:13 AM CDT Plan of Treatment Upcoming Encounters Date Type Department Care Team (Late st Contact Info) Description 12/27/2024 11:30 AM CDT Office Visit [facility] Oncology and Hematology [facility] [address] [facility] [address] [place] [address] Marquise Carrillo MD [address] [facility] [address] [place] [address] Health Maintenance Due Date Last [...] 2024 ZOSTER VACCINE (1 of 2) 2024 Insurance [facility] OPEN ACCESS HMO Care Teams Professor Of Finance Relationship Specialty Start Date End Date Chay Fuller DO [address] [facility] [address] [place] [address] PCP - General Internal Medicine 10/22/20
--- OUTSIDE RECORDS SUMMARY | 2024-12-26 09:51 | XMS_ITS | Clinical Summary ---
Author Organization [facility] Address [address] [place] [address] Care Team Providers Care Residential Direct Support Professional Name Role Phone Chay Fuller DO Primary Care Provider [phone]- [phone] [facility],non-owned Affiliates and Associated Physician Practices is amultiple site organization consisting of ambulatory clinics and hospital sitesin [place], [place], [place] and [place]. This disclosure is being madepursuant to the Care Everywhere program and may not contain all information available regarding this patient. Last updated 18.[facility] Allergies No known active allergies Medications * Be aware that medications may not be up to date on this document. Alwaysverify current medications with the patient. amLODIPine (Norvasc) 10 MG tablet Take 1 [...] at Not on file Legal Sex Male 12:06 PM CDT Gender Identity Not on file Sexual Orientation [...] VACCINE ( - 2023-2 5 season) 2024 DEPRESSION SCREENING 08/07/2024 PNEUMOCOCCAL VACCINE 50+ (1 of 1 - PCV) 2024 ZOSTER VACCINE (1 of 2) 2024 INFLUENZA VACCINE (Season Ended) 2025 HIB VACCINE Aged Out No longer eligi [...] On track( 023 8:51 AM CDT) Melissa Cruz RN Note: Expected end date: ongoing Interventions: Take all medications as prescribed Let your doctor know right away about any changes in your medications Make sure to request a refill of your medication at least one week prior to your last dose Insurance [facility] Care Teams Residential Direct Support Professional Relationship Specialty Start Date End Date Chay Fuller DO [facility] - General 01/04/22
[2024-12-26 10:13] LABS: Hemoglobin 14.3 g/dL (14.0-18.0); Mean Corpuscular HGB Conc 33.3 g/dl (32-36); Mean Corpuscular Hemoglobin 28.8 pg (26-34); Mean Corpuscular Volume 86.5 fl (80-100); Mean Platelet Volume 11.5 fl (7.4-10.4); Platelet Count Result 143 k/mm3 (150-375); Red Blood Count 4.97 M/mm3 (4.6-6.20); Red Cell Distribution Width 14.9 % (11.5-14.5); White Blood Count 8.5 K/mm3 (4.5-10.0)
[2024-12-26 12:03] LABS: Iron 184 ug/dL (49-181)
[2024-12-26 12:05] LABS: Alanine Aminotransferase 27 U/L (6-50); Albumin Level 4.6 g/dL (3.5-5.1); Alkaline Phosphatase 94 U/L (38-126); Anion Gap 10 mmol/L (4-12); Aspartate Amino Transferase 36 U/L (17-59); Blood Urea Nitrogen 11 mg/dL (9-20); Calcium 9.5 mg/dL (8.4-10.2); Carbon Dioxide 26 mmol/L (22-30); Chloride 104 mmol/L (98-107); Estimated Glomerular Filt Rate > 60; Glucose 114 mg/dL (65-110); Potassium 4.7 mmol/L (3.4-5.0); Sodium 140 mmol/L (137-145)
[2024-12-26 12:15] LABS: Percent Iron Saturation 46 % (20-50)
== END 2024-12-26 09:48 | disposition home or self-care (01) ==
LOC: ANHLAB 09:48
PROVIDERS: PCP Internal Medicine; Visit Provider Internal Medicine Hematology & Oncology
DX: E83.110 Hereditary hemochromatosis (principal)
CPT/HCPCS: 36415; 80053; 82728; 83540; 83550; 85027

== ENCOUNTER 2025-05-28 02:21 | Day surgery (SDC) | payer OTHER, SELFPAY ==
[2025-05-19 13:55] VITALS: BMI 28.4
--- OUTSIDE RECORDS SUMMARY | 2025-05-28 02:24 | XMS_ITS | Clinical Summary ---
[facility] Address [address] [place] [address] Care Team Providers Care Whiting Can Worker Name Role Phone HeidyjakobChay cabrales Gil Primary [...] Encounters Date Type Department Care Team Description 03/25/2025 External Device Data STL ABSTRACTION Provider, Abstract [...] on file Legal Sex Male 3:24 PM COMPENSATION INTERN Gender Identity Not on file Sexual Orientation Not on file Last Filed Vital Signs Vital Sign Reading Time Taken Comments Blood Pressure 105/85 12/27/2024 11:26 AM CDT Pulse 66 12/27/2024 11:26 AM CDT Temperature 36.6 C (97.8 F) 12/27/2024 11:26 AM CDT Respiratory Rate 15 12/27/2024 11:26 AM CDT Oxygen Saturation 97% 12/27/2024 11:26 AM CDT Inhaled Oxygen Concentration - - Weight 94.9 kg (209 lb 3.2 oz) 12/27/2024 11:26 AM CDT Height 182.9 cm (6') 01/18/2022 10:13 AM CDT Body Mass Index 28.37 01/18/2022 10:13 AM CDT Plan of Treatment Upcoming Encounters Date Type Department Care Team (Late st Contact Info) Description 06/24/2025 11:30 AM COMPENSATION INTERN Office Visit [facility] Oncology and Hematology - [place] [address] [facility] [address] [place] [address] Marquise Carrillo MD [address] [facility] [address] [place] [address] Health Maintenance Due Date Last Done Comments Pre-Diabetes and Diabetes Screening 1974 DTAP/TDAP/TD VACCINES (1 - Tdap) 1993 HEPATITIS B VACCINES (1 of 3 - 19+ 3-dose series) 03/1994 COLORECTAL SCREENING 10/13/2019 Colorectal Cancer Screening 10/13/2019 FIT-DNA Q 3 years 10/13/2019 FIT/FOBT Q 1 year 10/13/2019 Flex Sig/CT Colonography Q 5 years 10/13/2019 ZOSTER VACCINE (1 of 2) 2024 INFLUENZA VACCINE (#1) 2025 Insurance [facility] OPEN ACCESS HMO Care Teams Whiting Can Worker Relationship Specialty Start Date End Date Chay Fuller DO [address] [address] PCP - General Internal Medicine 10/22/20
--- OUTSIDE RECORDS SUMMARY | 2025-05-28 02:24 | XMS_ITS | Clinical Summary ---
Author Organization [facility] Address [address] [place] [address] Care Team Providers Care Osteopathic Neurologist Name Role Phone Chay Fuller DO Primary Care Provider [phone]- [phone] Source Comments [facility],non-owned Affiliates and Associated Physician Practices is amultiple site organization consisting of ambulatory clinics and hospital sitesin [place], [place]. This disclosure is being madepursuant to the Care Everywhere program and may not contain all information available regarding this patient. Last updated 18.[facility] Allergies No known active allergies Medications * [...] 3-dose series) 1993 SCREENING FOR DIABETES 02/21/2023 DEPRESSION SCREENING 08/07/2024 PNEUMOCOCCAL VACCINE 50+ (1 of 1 - PCV) 2024 ZOSTER VACCINE (1 of 2) 2024 COVID-19 VACCINE (1 - 2023-2 5 season) 2025 INFLUENZA VACCINE (#1) 2025 HIB VACCINE Aged Out No longer [...] week prior to your last dose Insurance [facility] Care Teams Osteopathic Neurologist Relationship Specialty Start Date End Date Chay Fuller DO [facility] - General 01/04/22
--- OUTSIDE RECORDS SUMMARY | 2025-05-28 02:24 | XMS_ITS | Clinical Summary ---
Author Organization [facility] Address [address] [place] [address] Care Team Providers Care Engine Mechanic Name Role Phone Luz MariaChay cabrales Gil Primary Care Provider Eric Shin MD Unavailable [phone] Allergies Active Allergy Reactions Criticality Noted [...] by mouth daily 90 capsule 3 4 Active Additional Information Patient not taking.Reported on 10/16/2024 Active Problems Problem Noted Date Diagnosed Date Pulmonary nodule, right 10/14/2024 Seizure 05/11/2022 Alcohol withdrawal syndrome with complication Hypomagnesemia Hypokalemia Closed fracture of left ankle Encounters Date Type Department Care Team Description 04/16/2025 1:30 PM CDT Office Visit [facility] Medicine Surgery [address] [facility] [address] 5 [place] [phone] Tk Bagley MD Pulmonary nodule, right (Primary Dx) 04/16/2025 11:49 AM CDT - 04/16/2025 11:59 PM CDT Hospital Encounter [facility] - [place] [address] [facility] [address] [place] [address] Pulmonary nodules Discharge Disposition: Discharge to home or self [...] Yes; Counseling Given: No Social Connection and Isolation Panel Answer Date Recorded In a typical week, how many times do you talk on the phone with family, friends, or neighbors? More than three times a week 05/12/2022 How often do you get togethe r with friends or relatives? More than three times a week 05/12/2022 How often do you attend chur ch or religion services? Never 05/12/2022 Do you belong to any clubs o r organizations such as confucianism groups, unions, fraternal or athletic groups, or [...] on file Legal Sex Male 3:16 AM MANUAL LATHE OPERATOR Gender Identity Not on file Sexual Orientation Not on file Obstetrics History Last Filed Vital Signs Vital Sign Reading Time Taken Comments Blood Pressure 106/71 04/16/2025 1:17 PM CDT Pulse 76 04/16/2025 1:17 PM CDT Temperature 36.3 C (97.4 F) 04/16/2025 1:17 PM CDT Respiratory Rate 18 04/16/2025 1:17 PM CDT Oxygen Saturation 99% 04/16/2025 1:17 PM CDT Inhaled Oxygen Concentration - - Weight 95.8 kg (211 lb 3.2 oz) 04/16/2025 1:17 P M CDT Height 181.6 cm (5' 11.5) 04/05/2024 9:02 AM CD T Body Mass Index 29.05 04/05/2024 9:02 AM CDT Plan of Treatment Health Maintenance Due Date Last Done Comments Colon Cancer Screening-Colonoscopy 1974 Depression Screening 1974 Hepatitis C Screening 1974 Prostate Cancer Screening-PSA 1974 DTaP/Tdap/Td Vaccine (1 - Tdap) 1985 Hepatitis B Screening 1992 Regular Well Visit/Exam 18-64 1992 Pneumococcal vaccine <65 (1 of 2 - PCV) 1993 Zoster Vaccine (1 of 2) 2024 Covid-19 Vaccine (3 - season) 04/07/202512/2020, 10/09/2020 Influenza Vaccine (#1) 2025 06/05/2014, 2012 Medical Devices Implanted Type Area Solar Process Engineer Device Identifier Shelf Expiration Date Model / Serial / Lot Synthes Lcp 12mm [id number] .[id number] 7 Hole Collar / Tubular Plate Bone 241.371 - [id number] Implanted:Qty: 1 on 05/11/2022 by Eric Shin MD at [facility] Synthes I 241.371 / / Synthes 3.5mm 6mm 24mm 2.5mm Self Tap Small Hexagonal Socket Low Profile 204.824 - [id number] Implanted:Qty: 1 on 05/11/2022 by Eric Shin MD at [facility] Synthes I 204.824 / / Synthes 3.5mm 6mm 18mm 2.5mm Self Tap Small Hexagonal Socket Low Profile 204.818 - [id number] Implanted:Qty: 2 on 05/11/2022 by Eric Shin MD at [facility] Synthes I 204.818 / / Synthes 4mm 6mm 18mm Small Hexagonal Socket Cancellous Full Thread Screw 206.018 - [id number] Implanted:Qty: 2 on 05/11/2022 by Eric Shin MD at [facility] Synthes I 206.018 / / Synthes 3.5mm 6mm 16mm 2.5mm Self Tap Small Hexagonal Socket Low Profile 204.816 - [id number] Implanted:Qty: 1 on 05/11/2022 by Eric Shin MD at [facility] Synthes I 204.816 / / Synthes 4mm 5mm 1.35mm 44mm Cannulated Self Tap Self Drill Small 207.644 - [id number] Implanted:Qty: 1 on 05/11/2022 by Eric Shin MD at [facility] Synthes I 207.644 / / Synthes 4mm 5mm 1.35mm 46mm Cannulated Self Tap Self Drill Small 207.646 - [id number] Implanted:Qty: 1 on 05/11/2022 by Eric Shin MD at [facility] Synthes I 207.646 / / Synthes 4mm 6mm 16mm Small Hexagonal Socket Cancellous Full Thread Screw 206.016 - [id number] Implanted:Qty: 1 on 05/11/2022 by Eric Shin MD at [facility] Synthes I 206.016 / / Procedures Procedure Name Priority Date/Time Associated Diagnosis Comments CT CHEST WO CONTRAST Schedule Routine, Read Routine (OP Routine) 04/16/2025 11:56 AM CDT Pulmonary nodules from Last 3 Months Results * CT Chest WO Contrast (04/16/2025 11:56 AM CDT) Anatomical Region Laterality Modality Body N/A Computed Tomogra phy 04/16/2025 12:2 9 PM CDT Impressions 04/16/2025 12:29 PM CDT 1. Overall, no significant change in the dominant right upper lobe pulmonary nodule with centrilobular satellite nodularity. Recommend follow-up CT in 6 months. Electronically signed by: Erlin Lizama MD, MPHS Narrative 04/16/2025 12:29 PM CDT EXAMINATION: Computed tomography of the chest without intravenous contrast HISTORY: 49-year-old male with pulmonary nodules. TECHNIQUE: Transaxial computed tomographic images of the chest were obtained without intravenous contrast according to the standard protocol. COMPARISON: CT 12/18/2024 and 10/01/2024. Chest radiograph 05/11/2022. FINDINGS: No axillary lymph node enlargement. No hilar or mediastinal lymph node enlargement. Normal heart size. No pericardial fluid. Mild calcification in the right coronary artery.. The main pulmonary artery is normal in size. Normal caliber thoracic aorta. . The esophagus is decompressed. No pleural effusion or pneumothorax. No focal consolidation. No pulmonary parenchymal disease. Similar size of the dominant, tubular nodule measuring 1.3 x 1.0 cm in the right upper lobe with similar to mildly increased size of alie-bronchovascular satellite nodularity compared to 12/18/2024. Compared to 10/01/2024, the satellite nodularity and dominant pulmonary lesion are mildly increased. No suspicious osseous lesions. Unchanged compression deformity of the T4 vertebral body. No significant upper abdominal findings. Procedure Note Erlin Lizama MD - 04/16/2025 EXAMINATION: Computed tomography of the chest without intravenous contrast HISTORY: 49-year-old male with pulmonary nodules. TECHNIQUE: Transaxial computed tomographic images of the chest were obtained without intravenous contrast according to the standard protocol. COMPARISON: CT 12/18/2024 and 10/01/2024. Chest radiograph 05/11/2022. FINDINGS: No axillary lymph node enlargement. No hilar or mediastinal lymph node enlargement. Normal heart size. No pericardial fluid. Mild calcification in the right coronary artery.. The main pulmonary artery is normal in size. Normal caliber thoracic aorta. . The esophagus is decompressed. No pleural effusion or pneumothorax. No focal consolidation. No pulmonary parenchymal disease. Similar size of the dominant, tubular nodule measuring 1.3 x 1.0 cm in the right upper lobe with similar to mildly increased size of alie-bronchovascular satellite nodularity compared to 12/18/2024. Compared to 10/01/2024, the satellite nodularity and dominant pulmonary lesion are mildly increased. No suspicious osseous lesions. Unchanged compression deformity of the T4 vertebral body. No significant upper abdominal findings. IMPRESSION: 1. Overall, no significant change in the dominant right upper lobe pulmonary nodule with centrilobular satellite nodularity. Recommend follow-up CT in 6 months. Electronically signed by: Erlin Lizama MD, MPHS Lavinia Rizvi ECOLOGICAL TECHNICAL OFFICER IMG CT PROCEDURES Final Result from Last 3 Months Insurance [facility] CIG CIGDANN IBEW CIGDANN IBANDREW Advance Directives For more information, please contact: [phone] * Full Code (Latest Code Status on File) Date Activated Date Inactivated Comments 05/11/2022 7:04 PM 05/16/2022 8:37 PM * Full Code Date Activated Date Inactivated Comments 05/11/2022 10:26 AM 05/11/2022 7:04 PM Care Teams Engine Mechanic Relationship Specialty Start Date End Date Chay Fuller DO PCP - General Internal Medicine 05/11/22 Eric Shin MD [address] [facility] [place] [address] Consulting Physician Orthopedic Surgery 05/16/22
[2025-05-28 06:10] VITALS: BP 99/70; PULSE 80; RESP 18; TEMP 36.4; O2SAT 99; BMI 28.0
[2025-05-28] MEDS: LACTATED RINGERS 1,000 ML 150 ML IV CONT (06:32)
--- NOTE | 2025-05-28 06:58 | WPDANESEPPF ---
Anes - Initial Pre Proc Eval Procedure: Operation Date: 05/28/25 07:30 Proposed Procedures p Screening Colonoscopy - Joseph Valdes MD Date/Time: 05/28/25 06:58 Surgeon: Joseph Valdes MD Pre Op Diagnosis: Screening, personal history colon polyps Patient Data Age: 49 Gender: M Height: 1.83 m Weight: 93.8 kg Last Vital Signs Temp 36.4 C L 05/28/25 06:10 Pulse 80 05/28/25 06:10 Resp 18 05/28/25 06:10 BP 99/70 L 05/28/25 06:10 Pulse Ox 99 05/28/25 06:10 O2 Del Method Room Air 05/28/25 06:10 Allergies Allergy/AdvReac Type Severity Reaction Status Date / Time No Known Allergies Allergy Unknown Verified 05/28/25 06:15 Home Medications ?Medication ?Instructions ?Recorded ?Confirmed ?Type B-complex with vitamin C 1 cap PO DAILY 08/16/24 05/28/25 History biotin 10,000 mcg chewable tablet mcg PO 08/16/24 10/22/24 History (Hair, Skin and Nails (biotin)) multivitamin with minerals-folic 1 tablet PO DAILY 08/16/24 05/28/25 History acid 80 mcg chewable tablet (Centrum Adult 50 Plus) pantoprazole 40 mg tablet,delayed 40 mg PO DAILY #90 tabs 09/10/24 05/28/25 Rx release Liver Detox & Cleanse Gummies .Route 10/22/24 10/22/24 History sildenafil 100 mg tablet (Viagra) 50 - 100 mg (0.5 - 1 x 100 mg) PO 10/22/24 05/19/25 Rx DAILY PRN sexual activity #30 tabs thiamine HCl (vitamin B1) 100 mg 100 mg PO DAILY 10/22/24 10/22/24 History capsule Patient hx anesthesia problems: none Family hx anesthesia problems: none Results Review: All pre-operative results and documents have been reviewed as part of the pre-operative evaluation. FORMERLY [facility], [facility] Past Medical History Medical History Anemia Tubular adenoma of colon Thrombocytopenia Cirrhosis Hematospermia Hemochromatosis Close exposure to COVID-19 virus Lump in armpit Skull fracture Anxiety Fatty liver GERD (gastroesophageal reflux disease) Surgical History Surgical History H/O foot surgery @ age 13 Family History Family History Father Swallowing disorder Malignant neoplasm of prostate Other Pneumonia Social History Social History Social History: Caffeine-tea Smoking status: Former smoker Tobacco type: e-cigarettes/vaping Second hand tobacco smoke exposure: No Smoking end date: 08/07/14 Alcohol intake: current Alcohol use details: 3 drinks daily Do You Feel Safe in your Home?: Yes Lack of Transportation: No Lack of Food: Never True Current Housing: I Have Housing Concerned About Future Housing: No Difficulty Paying Gas/Electric Bills: No Difficulty Paying for Meds: No Currently Unemployed: No Education: High School Diploma/GED Difficulty w/ Childcare or Family Care: No Living arrangements: with family Spiritual care concerns: No Anes - Eval Final PreProcedure Day of Procedure 05/28/25 06:58 Patient weight: overweight Heart: regular rate and rhythm Lungs: clear to auscultation Airway: Mallampati scale class III Neurological: alert and oriented Last oral intake: >/= 8 hours ASA classification: IV Emergent: no Anesthetic plan: proceed Anesthesia type and monitoring: general GIVS and standard monitoring Results Review: All pre-operative results and documents have been reviewed as part of the pre-operative evaluation. Informed Consent: The patient's anesthetic plan and its attendant risks and benefits were discussed with the patient/family/POA. Questions were solicited and answers provided to the satisfaction of the patient/family/POA.
--- NOTE | 2025-05-28 07:17 | PM.IMHP ---
H&P: HPI History of Present Illness Date/Time: 05/28/25 07:17 Chief Complaint: History of colon polyps Narrative: This is the patient's 2nd colonoscopy. There are no GI symptoms and there is no family history of colorectal cancer. His father had colorectal polyps in his 50s the patient had polyps 5 years ago. Review of Systems Review of Systems: All systems reviewed & are unremarkable except as noted in HPI and below PMFSH Past Medical History Medical History Anemia Tubular adenoma of colon Thrombocytopenia Cirrhosis Hematospermia Hemochromatosis Close exposure to COVID-19 virus Lump in armpit Skull fracture Anxiety Fatty liver GERD (gastroesophageal reflux disease) Surgical History Surgical History H/O foot surgery @ age 13 Family History Family History Father Swallowing disorder Malignant neoplasm of prostate Other Pneumonia Social History Social History Social History: Caffeine-tea Smoking status: Former smoker Tobacco type: e-cigarettes/vaping Second hand tobacco smoke exposure: No Smoking end date: 08/07/14 Alcohol intake: current Alcohol use details: 3 drinks daily Do You Feel Safe in your Home?: Yes Lack of Transportation: No Lack of Food: Never True Current Housing: I Have Housing Concerned About Future Housing: No Difficulty Paying Gas/Electric Bills: No Difficulty Paying for Meds: No Currently Unemployed: No Education: High School Diploma/GED Difficulty w/ Childcare or Family Care: No Living arrangements: with family Spiritual care concerns: No Meds Home Medications and Allergies Home Medications ?Medication ?Instructions ?Recorded ?Confirmed ?Type B-complex with vitamin C 1 cap PO DAILY 08/16/24 05/28/25 History biotin 10,000 mcg chewable tablet mcg PO 08/16/24 10/22/24 History (Hair, Skin and Nails (biotin)) multivitamin with minerals-folic 1 tablet PO DAILY 08/16/24 05/28/25 History acid 80 mcg chewable tablet (Centrum Adult 50 Plus) pantoprazole 40 mg tablet,delayed 40 mg PO DAILY #90 tabs 09/10/24 05/28/25 Rx release Liver Detox & Cleanse Gummies .Route 10/22/24 10/22/24 History sildenafil 100 mg tablet (Viagra) 50 - 100 mg (0.5 - 1 x 100 mg) PO 10/22/24 05/19/25 Rx DAILY PRN sexual activity #30 tabs thiamine HCl (vitamin B1) 100 mg 100 mg PO DAILY 10/22/24 10/22/24 History capsule Allergies Allergy/AdvReac Type Severity Reaction Status Date / Time No Known Allergies Allergy Unknown Verified 05/28/25 06:15 Vital Signs Vital Signs - 24 hr 05/28/25 06:10 Temperature 97.5 F L Pulse Rate 80 Respiratory Rate 18 Blood Pressure 99/70 L Pulse Oximetry 99 Oxygen Delivery Room Air Exam Const: General: cooperative and healthy appearing Resp: Effort & Inspection: normal respiratory effort and able to speak in complete sentences Auscultation: clear to auscultation bilaterally Cardio: Rate: regular rate Rhythm: regular rhythm GI: Inspection: normal to inspection GI Palp: No No hepatosplenomegaly present Auscultation: normal bowel sounds Rectal Exam: deferred Skin: General skin exam: normal color Psych: Appearance: grossly normal Mental Status: mental status grossly normal Assessment and Plan Assessment and plan (1) Tubular adenoma of colon: Code(s): D12.6 - Benign neoplasm of colon, unspecified Status: Acute Assessment and Plan: The patient is deemed a good candidate for the procedure. Consent signed. Will proceed.
[2025-05-28] MEDS: SIMETHICONE ORAL SUSPENSION 20 MG/0.3 ML 30 ML BOTTLE 0.6 ML IRRIGATION (07:36)
[2025-05-28 07:48] VITALS: BP 109/78; PULSE 85; RESP 21; O2SAT 97
[2025-05-28 07:58] VITALS: BP 105/70; PULSE 76; RESP 20; O2SAT 98
[2025-05-28 08:08] VITALS: BP 98/70; PULSE 69; RESP 22; O2SAT 100
== END 2025-05-28 08:19 | disposition home or self-care (01) ==
PROVIDERS: PCP Internal Medicine; Referring Provider Internal Medicine Gastroenterology; Visit Provider Internal Medicine Gastroenterology
PROC: 0DJD8ZZ Inspection of Lower Intestinal Tract, Via Natural or Artificial Opening Endoscopic (ICD-10-PCS; CPT 45378; principal; 2025-05-28 07:30)
DX: Z12.11 Encounter for screening for malignant neoplasm of colon (principal); Z86.0100 Personal history of colon polyps, unspecified; Z83.719 Family history of colon polyps, unspecified
CPT/HCPCS: 45378; J2003; J2704; J7120

== ENCOUNTER 2025-07-08 14:07 | Outpatient (CLI) | payer OTHER, SELFPAY ==
[2025-07-08 14:31] LABS: Hematocrit 44.2 % (42.0-52.0); Hemoglobin 15.4 g/dL (14.0-18.0); Immature Platelet Fraction Pct 10.7 % (0.9-11.2); Mean Corpuscular HGB Conc 34.8 g/dl (32-36); Mean Corpuscular Hemoglobin 32.6 pg (26-34); Mean Corpuscular Volume 93.6 fl (80-100); Platelet Count Result 127 k/mm3 (150-375); Red Blood Count 4.72 M/mm3 (4.6-6.20); White Blood Count 8.3 K/mm3 (4.5-10.0)
--- OUTSIDE RECORDS SUMMARY | 2025-07-08 15:17 | XMS_ITS | Clinical Summary ---
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 [address] [place] [address] Marquise Carrillo MD [address] [facility] [address] [place] [address] Health Maintenance Due Date Last Done Comments Pre-Diabetes and Diabetes Screening 1974 DTAP/TDAP/TD VACCINES (1 - Tdap) 1993 HEPATITIS B VACCINES (1 of 3 - 19+ 3-dose series) 03/1994 COLORECTAL SCREENING 10/13/2019 Colorectal Cancer Screening 10/13/2019 FIT-DNA Q 3 years 10/13/2019 FIT/FOBT Q 1 year 10/13/2019 Flex Sig/CT Colonography Q 5 years 10/13/2019 Preventative Visit- Commercial 08/07/2024 ZOSTER VACCINE (1 of 2) 2024 INFLUENZA VACCINE (#1) 2025 Insurance [facility] OPEN ACCESS O Care Teams Special Effects Person Relationship Specialty Start Date End Date Chay Fuller DO [address] [facility] [address] [place] [id number] PCP - General Internal Medicine 10/22/20
--- OUTSIDE RECORDS SUMMARY | 2025-07-08 15:17 | XMS_ITS | Clinical Summary ---
Author Organization [facility] Address [address] [place] [address] Care Team Providers Care Length Control Tester Name Role Phone Chay Fuller DO Primary Care Provider [phone] Eric Shin MD Unavailable [phone] Allergies Active Allergy Reactions Criticality Noted [...] Description 04/16/2025 1:30 PM CDT Office Visit [facility] Medicine Surgery [address] [facility] Floor 5 [place] [address] Tk Bagley MD Pulmonary nodule, right (Primary Dx) 04/16/2025 11:49 AM CDT - 04/16/2025 11:59 PM CDT Hospital Encounter [facility] - [place] [address] [facility] [address] [place] [address] Pulmonary nodules Discharge Disposition: Discharge to home [...] often do you attend chur ch or methodist services? 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 Gender Identity Not on file Sexual Orientation [...] 06/05/2014, 2012 Medical Devices Implanted Type Area Control Panel Assembler Device Identifier Shelf Expiration Date Model / Serial / Lot Synthes Lcp 12mm [id number] .7mm 7 Hole Collar 08/09 Tubular Plate Bone 241.371 - [id number] Implanted:Qty: 1 on 05/11/2022 by Eric Shin MD at [facility] Synthes I 241.371 / / Synthes 3.5mm 6mm 24mm 2.5mm Self Tap Small Hexagonal Socket Low Profile 204.824 - [id number] Implanted:Qty: 1 on 05/11/2022 by Eric Shin MD at [facility] Synthes I 204.824 / / Synthes 3.5mm 6mm 18mm 2.5mm Self Tap Small Hexagonal Socket Low Profile 204.818 - [id number] Implanted:Qty: 2 on 05/11/2022 by Eric Shin MD at [facility] Synthes I 204.818 / / Synthes 4mm 6mm 18mm Small Hexagonal Socket Cancellous Full Thread Screw 206.018 - [id number] Implanted:Qty: 2 on 05/11/2022 by Eric Shin MD at [facility] Synthes I 206.018 / / Synthes 3.5mm 6mm 16mm 2.5mm Self Tap Small Hexagonal Socket Low Profile 204.816 - [id number] Implanted:Qty: 1 on 05/11/2022 by Eric Shin MD at [facility] Synthes I 204.816 / / Synthes 4mm 5mm 1.35mm 44mm Cannulated Self Tap Self Drill Small 207.644 - [id number] Implanted:Qty: 1 on 05/11/2022 by Eric Shin MD at [facility] Synthes I 207.644 / / Synthes 4mm 5mm 1.35mm 46mm Cannulated Self Tap Self Drill Small 207.646 - [id number] Implanted:Qty: 1 on 05/11/2022 by Eric Shin MD at [facility] Synthes I 207.646 / / Synthes 4mm 6mm 16mm Small Hexagonal Socket Cancellous Full Thread Screw 206.016 - [id number] Implanted:Qty: 1 on 05/11/2022 by Eric Shin MD at [facility] Synthes I 206.016 / / Procedures Procedure [...] by: Erlin Lizama MD, MPHS Lavinia Rizvi FEATHER DUSTER WINDER IMG CT PROCEDURES Final Result from Last 3 Months Insurance [facility] CIGDANN COFFEY RISSA COFFEY Advance Directives For more information, please contact: [phone] * Full Code (Latest Code Status on File) Date Activated Date Inactivated Comments 05/11/2022 7:04 PM 05/16/2022 8:37 PM * Full Code Date Activated Date Inactivated Comments 05/11/2022 10:26 AM 05/11/2022 7:04 PM Care Teams Length Control Tester Relationship Specialty Start Date End Date Chay Fuller DO PCP - General Internal Medicine 05/11/22 Eric Shin MD [address] [facility] [place] [address] Consulting Physician Orthopedic Surgery 05/16/22
--- OUTSIDE RECORDS SUMMARY | 2025-07-08 15:17 | XMS_ITS | Clinical Summary ---
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 Gender Identity Not on file Sexual Orientation Not on file Plan of Treatment Health Maintenance Due Date Last Done Comments Colorectal Cancer Screening Colonoscopy (10 Years) 1974 Annual Physical 1977 Hepatitis C 1992 DTaP, Tdap and Td Vaccines ( 1 - Tdap) 1993 Hepatitis B Vaccines (1 of 3 - 19+ 3-dose series) 1993 Pneumococcal Vaccine: 50+ Ye ars (1 of 1 - PCV) 2024 Zoster Vaccines (1 of 2) 2024 COVID-19 Vaccine (2024-2 6 season) 2025 Influenza Adult (#1) 2025 Hepatitis A Vaccines Aged Out No long er eligible based on patient's age to complete this topic Meningococcal B Vaccine Aged Out No l onger eligible based on patient's age to complete this topic Meningococcal Vaccine Aged Out No micky doris eligible based on patient's age to complete this topic RSV Immunizations Under 20 Months Aged Out No longer eligible based on patient's age to complete this topic Care Teams Records Custodian Relationship Specialty Start Date End Date None, Provider, PCP - General 05/09/19
--- OUTSIDE RECORDS SUMMARY | 2025-07-08 15:17 | XMS_ITS | Clinical Summary ---
Author Organization [facility] [employer] Address [address] [place] [address] Care Team Providers Care Drop Hammer Setter Up Name Role Phone Chay Fuller DO Primary Care Provider [phone] Source Comments [facility] [employer],non-owned Affiliates and Associated Physician Practices is amultiple site organization consisting of ambulatory clinics and hospital sitesin [place], [place], [place] and [place]. This disclosure is being madepursuant to the Care Everywhere program and may not contain all information available regarding this patient. Last updated 18.[facility] [employer] Allergies No known active allergies Medications * [...] Years Used Date Smoking Tobacco: Former Cigarettes 0 Q uit: 2014 Smokeless Tobacco: Never Tobacco [...] VACCINE (1 of 2) 2024 COVID-19 VACCINE ( - 2024-2 6 season) 2025 INFLUENZA VACCINE (#1) 2025 HIB [...] week prior to your last dose Insurance [facility] Care Teams Drop Hammer Setter Up Relationship Specialty Start Date End Date Chay Fuller DO [facility] - General 01/04/22
[2025-07-08 16:20] LABS: Iron 128 ug/dL (49-181)
[2025-07-08 16:23] LABS: Alanine Aminotransferase 27 U/L (6-50); Albumin Level 4.5 g/dL (3.5-5.1); Alkaline Phosphatase 89 U/L (38-126); Anion Gap 6 mmol/L (4-12); Aspartate Amino Transferase 49 U/L (17-59); Bilirubin,Total 1.0 mg/dL (0.2-1.3); Blood Urea Nitrogen 14 mg/dL (9-20); Calcium 9.4 mg/dL (8.4-10.2); Carbon Dioxide 29 mmol/L (22-30); Chloride 104 mmol/L (98-107); Estimated Glomerular Filt Rate > 60; Glucose 84 mg/dL (65-110); Potassium 4.8 mmol/L (3.4-5.0); Sodium 139 mmol/L (137-145); Total Protein 8.0 g/dL (6.3-8.2)
[2025-07-08 16:30] LABS: Percent Iron Saturation 39 % (20-50)
[2025-07-08 16:56] LABS: Ferritin 29.40 ng/mL (11.1-264)
== END 2025-07-08 14:08 | disposition home or self-care (01) ==
LOC: ANHLAB 14:08
PROVIDERS: PCP Internal Medicine; Visit Provider Internal Medicine Hematology & Oncology
DX: E83.110 Hereditary hemochromatosis (principal)
CPT/HCPCS: 36415; 80053; 82728; 83540; 83550; 85027; 85055